=== PATIENT | female | born 1960 | race Caucasian/White ===

== ENCOUNTER → 2017-10-20 11:39 | Outpatient (CLI) | payer MEDICARE, MEDICAID, SELFPAY ==
--- NOTE | 2017-10-20 | DI.MG.S_ITS ---
BILATERAL DIGITAL SCREENING MAMMOGRAM 3D/2D WITH CAD: 10/20/2017 CLINICAL: Routine screening. Comparison is made to exams dated: 06/05/2015 mammogram, 09/12/2016 mammogram, and 02/01/2013 mammogram - [facility]. There are scattered fibroglandular elements in both breasts. Current study was also evaluated with a Computer Aided Detection (CAD) system. There are post operative findings in the left breast. No significant masses, calcifications, or other findings are seen in either breast. There has been no significant interval change. IMPRESSION: NEGATIVE There is no mammographic evidence of malignancy. A 1 year screening mammogram is recommended. This exam was interpreted at Station ID: [id number]. NOTE: For mammograms, a report in lay terms will be sent to the patient. Approximately 15% of breast malignancies will not be visualized mammographically. In the management of a palpable breast mass, a negative mammogram must not discourage biopsy of a clinically suspicious lesion. Electronically Signed By: Katelyn molina/emmie:10/20/2017 16:51:19 letter sent: Normal Exam ACR BI-RADS Category 1: Negative [id number]
== END ==
PROVIDERS: Family Provider Family Medicine; PCP Family Medicine; Visit Provider Family Medicine
DX: Z12.31 Encounter for screening mammogram for malignant neoplasm of breast (principal)
CPT/HCPCS: 77063; 77067

== ENCOUNTER 2018-04-21 08:57 | Emergency (ER) | payer MEDICARE, MEDICAID, SELFPAY ==
[2018-04-21 09:09] VITALS: BP 156/89; PULSE 86; RESP 21; TEMP 36.7; O2SAT 97; BMI 53.8
--- NOTE | 2018-04-21 09:10 | ED_ITS ---
HPI - Extremity Problem General Chief complaint: Extremity Problem,Nontraumatic Stated complaint: RIGHT KNEE PAIN Time Seen by Provider: 04/21/18 09:09 Source: patient Mode of arrival: wheelchair Limitations: no limitations History of Present Illness HPI Narrative: 49-year-old female here for evaluation of right knee pain. Patient states that has been hurting for the past week. She has been taking anti-inflammatories. No trauma. No prior injury. States that it hurts on the inside of her knee. No instability. States that it aches at night. Related Data Home Medications Medication Instructions Recorded Confirmed ibuprofen [Advil] 600 mg PO PRN #0 11/10/11 02/16/18 aspirin 81 mg tablet,delayed 81 mg PO DAILY 10/05/17 02/16/18 release aripiprazole [Abilify] 5 mg PO DAILY 04/21/18 04/21/18 clonidine HCl 0.1 mg PO BEDTIME 04/21/18 04/21/18 Previous Rx's Medication Instructions Recorded mupirocin 2 % TOPICAL BID #22 gm 08/24/17 triamcinolone acetonide 0 gm TOPICAL BID #30 gm 08/24/17 lamotrigine 200 mg tablet 400 mg PO BID #360 tab 10/20/17 venlafaxine 75 mg tablet 150 mg PO BID #360 tab 10/27/17 hydroxyzine HCl 10 mg tablet 10 mg PO BID PRN #120 tab 11/03/17 levothyroxine 75 mcg tablet 150 mcg PO Q DAY #180 tab 01/25/18 Allergies Allergy/AdvReac Type Severity Reaction Status Date / Time adhesive Allergy Severe LOCAL Verified 02/16/18 16:03 BLISTER, PLASTIC TAPE O.K., NO SILK TAPE morphine Allergy Severe STOP Verified 02/16/18 16:03 BREATHING ONIONS Allergy Unknown HIVES, N&V Uncoded 02/16/18 16:03 Review of Systems Constitutional Denies fever(s) Cardiovascular Denies chest pain and Denies dyspnea Respiratory Denies dyspnea Gastrointestinal Gastrointestinal: Denies abdominal pain Musculoskeletal Denies myalgias and Reports arthralgias (Right knee pain) Integumentary/Breasts Denies lesions and Denies rash Neurologic Comments: No numbness or tingling right knee Hematologic/Lymphatic Denies easy bleeding and Denies easy bruising [facility] Social History (Reviewed 03/29/18 @ 21:18 by LEON Coyle Smoking Status: Former smoker alcohol intake: never substance use type: does not use Exam Initial Vital Signs Initial Vital Signs: Vital Signs Temperature 98.0 F 04/21/18 09:09 Pulse Rate 86 04/21/18 09:09 Respiratory Rate 21 04/21/18 09:09 Blood Pressure 156/89 H 04/21/18 09:09 Pulse Oximetry 97 04/21/18 09:09 Const General: cooperative, healthy appearing, comfortable, well developed, well groomed and No acute distress Orientation: alert, awake and oriented x3 HENMT Head: normal to inspection and normocephalic Resp Effort & Inspection: normal respiratory effort Auscultation: clear to auscultation bilaterally Cardio Rate: regular rate Rhythm: regular rhythm Skin Lesions: no lesions Rashes: no rashes Neuro Other: Sensation intact to light touch right lower extremity Extrem Other: Patient with tenderness to palpation on the medial aspect of the right knee. Not over the medial joint line. No posterior knee tenderness. No anterior knee tenderness. Does have pain with functional testing of the MCL. Psych Appearance: grossly normal and well kempt Course Orders Ordered: Discontinued Medications Ketorolac Tromethamine (Toradol) 30 mg IM NOW ONE Stop: 04/21/18 09:32 Vital Signs - 8 hr 04/21/18 09:09 Temperature 98.0 F Pulse Rate 86 Respiratory Rate 21 Blood Pressure 156/89 H Pulse Oximetry 97 MDM - Extremity (Nontraumatic) MDM Narrative Medical decision making narrative: History of physical consistent with right MCL strain. Doubt fracture. Will hold on x-rays for now. Patient is neurovascularly intact. Was given Toradol here in the emergency department. She was given return precautions. We did discuss conservative measures such as rice and elevation. She was given an Ronaldo bandage. She is instructed to call her primary care doctor for follow-up. She expressed understanding and agreement with plan. Discharge Plan Departure Patient Disposition: Home Clinical Impression: Knee MCL sprain Instructions: How to Use an Elastic Bandage-Knee Sprain, DI for Knee Sprain, How To Perform RICE (Rest, Ice, Compress, Elevate) Activity Restrictions/Additional Instructions: You can take anti-inflammatories such as Motrin/Naprosyn. You can also add Tylenol on top of this. Use the Ronaldo bandage like we discussed. Contact your primary care doctor for a follow-up. Return to the emergency department for any new or worsening symptoms Prescriptions: No Action ibuprofen [Advil] 200 MG tablet 600 mg PO PRN Qty: 0 RF: 0 triamcinolone acetonide 0.1 % ointment Topical BID Qty: 30 RF: 3 mupirocin 2 % ointment 2 % Topical BID Qty: 22 RF: 0 lamotrigine [Lamictal] 200 mg tablet 400 mg PO BID Qty: 360 RF: 5 venlafaxine 75 mg tablet 150 mg PO BID Qty: 360 RF: 5 hydroxyzine HCl 10 mg tablet 10 mg PO BID PRN (Reason: anxiety) Qty: 120 RF: 1 levothyroxine [Synthroid] 75 mcg tablet 150 mcg PO Q DAY Qty: 180 RF: 0 aspirin [Adult Low Dose Aspirin] 81 mg tablet,delayed release (DR/EC) 81 mg PO DAILY RF: 0 clonidine HCl 0.1 mg tablet 0.1 mg PO BEDTIME RF: 0 aripiprazole [Abilify] 5 mg tablet 5 mg PO DAILY RF: 0
[2018-04-21] MEDS: KETOROLAC 60 MG/2 ML VIAL 30 MG IM (10:22)
[2018-04-21 11:06] VITALS: BP 127/84; PULSE 80; RESP 18; O2SAT 96
== END 2018-04-21 11:02 | disposition home or self-care (01) ==
PROVIDERS: Emergency Provider Emergency Medicine; PCP Family Medicine
DX: S83.411A Sprain of medial collateral ligament of right knee, initial encounter (principal)
CPT/HCPCS: 96372; 99282; 99283; J1885

== ENCOUNTER 2018-04-23 09:11 | Emergency (ER) | payer MEDICARE, MEDICAID, SELFPAY ==
[2018-04-23 09:18] VITALS: BP 150/90; PULSE 84; RESP 18; TEMP 36.9; O2SAT 96; BMI 53.8
--- NOTE | 2018-04-23 09:36 | ED_ITS ---
HPI - Nausea/Vomiting/Diarrhea General Chief complaint: Nausea/Vomiting/Diarrhea Stated complaint: rt knee pain Time Seen by Provider: 04/23/18 09:35 Source: patient Mode of arrival: ambulatory Limitations: no limitations History of Present Illness HPI Narrative: patient is a 57-year-old female who I evaluated in the emergency department here 2 days ago for right knee pain. Was diagnosed with a MCL strain. Was sent home with instructions to take Tylenol and Motrin. She states that after she returned home from that visit she started to have nausea vomiting. She states that it is continued since then. She has not taken any Tylenol Motrin the past 24 hr because of the vomiting. She states she feels like the vomiting is because the pain in her right knee has worsened. She feels like it is the same pain as she had 2 days ago however is now migrated slightly up the inside of her thigh and has become more intense. No fevers. She is taking her other medications but has thrown them up has not tried anything at home for the pain or for the nausea and vomiting. Related Data Home Medications Medication Instructions Recorded Confirmed ibuprofen [Advil] 200 - 600 mg PO PRN PRN #0 11/10/11 04/23/18 aspirin 81 mg tablet,delayed 81 mg PO DAILY 10/05/17 04/23/18 release aripiprazole [Abilify] 5 mg PO DAILY 04/21/18 04/23/18 clonidine HCl 0.1 mg PO BEDTIME 04/21/18 04/23/18 lamotrigine [Lamictal] 200 mg PO BID 04/23/18 04/23/18 Previous Rx's Medication Instructions Recorded venlafaxine 75 mg tablet 150 mg PO BID #360 tab 10/27/17 hydroxyzine HCl 10 mg tablet 10 mg PO BID PRN #120 tab 11/03/17 levothyroxine 75 mcg tablet 150 mcg PO Q DAY #180 tab 01/25/18 hydrocodone-acetaminophen [[place]] 1 tab PO Q4-6H PRN #10 tab 04/23/18 ondansetron 4 mg PO Q6-8H PRN #10 tab 04/23/18 Allergies Allergy/AdvReac Type Severity Reaction Status Date / Time adhesive Allergy Severe LOCAL Verified 04/23/18 09:25 BLISTER, PLASTIC TAPE O.K., NO SILK TAPE morphine Allergy Severe STOP Verified 04/23/18 09:25 BREATHING ONIONS Allergy Unknown HIVES, N&V Uncoded 02/16/18 16:03 Review of Systems Constitutional Denies fever(s) Cardiovascular Denies chest pain and Denies dyspnea Respiratory Denies dyspnea Gastrointestinal Gastrointestinal: Denies abdominal pain, Denies change in bowel habits and Reports vomiting Musculoskeletal Denies myalgias, Denies deformity, Reports arthralgias ( Right knee pain), Denies joint swelling, Reports limited range of motion ( right knee secondary to pain), Denies numbness and Denies tingling Integumentary/Breasts Denies lesions and Denies rash Neurologic Denies behavioral changes, Denies numbness and Denies tingling Psychiatric Denies behavioral changes Hematologic/Lymphatic Denies easy bleeding PFSH Social History Smoking Status: Former smoker alcohol intake: never substance use type: does not use Exam Initial Vital Signs Initial Vital Signs: Vital Signs Temperature 98.4 F 04/23/18 09:18 Pulse Rate 84 04/23/18 09:18 Respiratory Rate 18 04/23/18 09:18 Blood Pressure 150/90 H 04/23/18 09:18 Pulse Oximetry 96 04/23/18 09:18 Const General: cooperative, well developed, well groomed and No acute distress Orientation: alert, awake and oriented x3 HENMT Head: normal to inspection and normocephalic Resp Effort & Inspection: normal respiratory effort Auscultation: clear to auscultation bilaterally Cardio Rate: regular rate Rhythm: regular rhythm Pulses: dorsalis pedis present on the right GI Inspection: non-distended Palpation: soft, No firm, No guarding, No rigid and No tender Skin Lesions: no lesions Rashes: no rashes Neuro General: alert, awake and oriented x3 Other: sensation intact to light touch right lower extremity Extrem General: normal to inspection and capillary refill normal Other: no gross deformities. Is tender to palpation along the medial aspect of the right knee. Her exam today is very similar to the exam 2 days ago. Psych Appearance: grossly normal and well kempt Course Orders Ordered: ED Orders 04/23/18 09:37 EKG-12 Lead Stat 04/23/18 09:40 XR knee RT 3V Stat 04/23/18 09:55 C-Reactive Protein Quant Stat Complete Blood Count AUTO DIFF Stat Comprehensive Metabolic Panel Stat Erythrocyte Sedimentation Rate Stat Lipase Stat Partial Thromboplastin Time Stat Prothrombin Time INR Stat 04/23/18 10:04 Procalcitonin Stat Discontinued Medications Hydromorphone HCl (Dilaudid) 0.5 mg IV NOW ONE Stop: 04/23/18 10:01 Last Admin: 04/23/18 10:17 Dose: 0.5 mg Ondansetron HCl (Zofran) 4 mg IV NOW ONE Stop: 04/23/18 09:38 Last Admin: 04/23/18 09:58 Dose: 4 mg Vital Signs - 8 hr 04/23/18 09:18 Temperature 98.4 F Pulse Rate 84 Respiratory Rate 18 Blood Pressure 150/90 H Pulse Oximetry 96 MDM - Nausea/Vomiting/Diarrhea Lab Data Attestation: I reviewed the patient's lab results. Result diagrams: 04/23/18 09:55 04/23/18 09:55 Lab Results 04/23/18 04/23/18 04/23/18 Range/Units 09:55 09:55 09:55 WBC 8.3 (4.5-11.0) X10^3/uL RBC 4.67 (4.0-5.2) X10^6/uL Hgb 14.4 (12.0-16.0) g/dL Hct 43.1 (36-46) % MCV 92.5 (80-100) fL MCH 30.9 (26-34) PG MCHC 33.4 (30-36) % RDW 14.1 (11.6-14.8) % Plt Count 275 (150-400) X10^3/uL Neut % (Auto) 84.6 H (50-75) % Lymph % (Auto) 8.5 L (25-40) % [place] % (Auto) 5.4 (3-14) % Eos % (Auto) 1.1 L (2-4) % Baso % (Auto) 0.4 (0-2) % Neut # (Auto) 7100 H (9105-8115) /uL ESR 3 (0-20) MM/HR PT 13.2 H (10.1-12.7) SECONDS INR 1.2 (0.9-1.3) APTT 29 (26.4-36.2) SECONDS Sodium 141 (137-145) mmol/L Potassium 3.7 (3.4-5.1) mmol/L Chloride 103 (98-107) mmol/L Carbon Dioxide 26 (22-32) mmol/L BUN 14 (7-17) mg/dL Creatinine 0.60 (0.52-1.04) mg/dL Estimated GFR > 60.0 (>60) mL/min BUN/Creatinine Ratio 23.3 H (6-22) Glucose 125 H (70-100) mg/dL Calcium 9.3 (8.4-10.2) mg/dL Total Bilirubin 0.7 (0.2-1.3) mg/dL AST 1326 H (14-36) IU/L ALT 1653 H (9-52) IU/L Alkaline Phosphatase 119 (38-126) U/L C-Reactive Protein 1.3 H (<1.0) mg/dL Total Protein 6.4 (6.3-8.2) g/dL Albumin 4.3 (3.5-5.0) g/dL Globulin 2.1 (1.7-4.1) g/dL Albumin/Globulin Ratio 2.0 (1.0-2.8) Lipase 42 (23-300) U/L Procalcitonin (<0.5) ng/mL 04/23/18 Range/Units 10:04 WBC (4.5-11.0) X10^3/uL RBC (4.0-5.2) X10^6/uL Hgb (12.0-16.0) g/dL Hct (36-46) % MCV (80-100) fL MCH (26-34) PG MCHC (30-36) % RDW (11.6-14.8) % Plt Count (150-400) X10^3/uL Neut % (Auto) (50-75) % Lymph % (Auto) (25-40) % [place] % (Auto) (3-14) % Eos % (Auto) (2-4) % Baso % (Auto) (0-2) % Neut # (Auto) (0971-6467) /uL ESR (0-20) MM/HR PT (10.1-12.7) SECONDS INR (0.9-1.3) APTT (26.4-36.2) SECONDS Sodium (137-145) mmol/L Potassium (3.4-5.1) mmol/L Chloride (98-107) mmol/L Carbon Dioxide (22-32) mmol/L BUN (7-17) mg/dL Creatinine (0.52-1.04) mg/dL Estimated GFR (>60) mL/min BUN/Creatinine Ratio (6-22) Glucose (70-100) mg/dL Calcium (8.4-10.2) mg/dL Total Bilirubin (0.2-1.3) mg/dL AST (14-36) IU/L ALT (9-52) IU/L Alkaline Phosphatase (38-126) U/L C-Reactive Protein (<1.0) mg/dL Total Protein (6.3-8.2) g/dL Albumin (3.5-5.0) g/dL Globulin (1.7-4.1) g/dL Albumin/Globulin Ratio (1.0-2.8) Lipase (23-300) U/L Procalcitonin 21.50 H (<0.5) ng/mL Point of Care Testing Glucose POC 109 Imaging Data x-ray knee: Radiologist's impression: [address] [address] XRay Report Signed Patient: Verena Turcios [facility]#: [id number] : 1960Acct:[id number] Age/Sex: 57 / FDate of Service: 04/23/18 Loc: ED Accession Number: [id number] Procedure: XR knee RT 3V Ordering Provider: Allen Cohi D.O. PROCEDURE: XR KNEE RT 3V INDICATIONS: medial right knee pain TECHNIQUE: 3 views of the knee were acquired. COMPARISON: [facility], , KNEE 3V LEFT, 12/29/2011, 12:17. FINDINGS: Bones: There is moderate medial femorotibial joint space narrowing seen, with associated remodeling changes including subchondral sclerosis and osteophyte formation along the jointline. No fractures or dislocations. No suspicious bony lesions. Soft tissues: No joint effusion. No suspicious soft tissue calcifications. IMPRESSION: No acute bony injury is seen. 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 Dictated by: Anny MarinD. on 04/23/2018 at 9:32 Approved by: Davie Lynn M.D. on 04/23/2018 at 9:34 ECG Data Attestation: I personally reviewed and interpreted this ECG as follows: Prior ECG tracings: not available for review Interpretation: Sinus rhythm ventricular rate is 77 normal axis normal intervals normal QRS normal QTC nonspecific ST T wave changes MDM Narrative Medical decision making narrative: patient with improvement of symptoms after medications here in the emergency department. Does have elevated liver function test. Patient states she has never been told this in the past. She has had a gallbladder removal in the past. Doubt infection in the right knee. Doubt intra-abdominal surgical pathology as a cause of her nausea and vomiting. Will add additional pain medication to her Tylenol Motrin that she has at home. Also sent home with Connie. She has a follow-up with her primary doctor on the of this month. She was given return precautions. She expressed understanding and agreement with plan. Discharge Plan Departure Patient Disposition: Home Clinical Impression: Nausea & vomiting, Strain of right knee, Elevated liver function tests Instructions: DI for Vomiting -- Adult Activity Restrictions/Additional Instructions: recommend you continue to take the ibuprofen as directed. Keep all of your scheduled medical appointments. Return to the emergency department for new or worsening symptoms. Prescriptions: New hydrocodone-acetaminophen [[place]] 5-325 mg tablet 1 tab PO Q4-6H PRN (Reason: pain) Qty: 10 RF: 0 ondansetron 4 mg tablet,disintegrating 4 mg PO Q6-8H PRN (Reason: nausea and vomiting) Qty: 10 RF: 0 No Action ibuprofen [Advil] 200 MG tablet 200 - 600 mg PO PRN PRN (Reason: pain) Qty: 0 RF: 0 venlafaxine 75 mg tablet 150 mg PO BID Qty: 360 RF: 5 hydroxyzine HCl 10 mg tablet 10 mg PO BID PRN (Reason: anxiety) Qty: 120 RF: 1 levothyroxine [Synthroid] 75 mcg tablet 150 mcg PO Q DAY Qty: 180 RF: 0 aspirin [Adult Low Dose Aspirin] 81 mg tablet,delayed release (DR/EC) 81 mg PO DAILY RF: 0 clonidine HCl 0.1 mg tablet 0.1 mg PO BEDTIME RF: 0 aripiprazole [Abilify] 5 mg tablet 5 mg PO DAILY RF: 0 lamotrigine [Lamictal] 200 mg tablet 200 mg PO BID RF: 0
--- NOTE | 2018-04-23 09:40 | DI.RAD.S_ITS ---
PROCEDURE: XR KNEE RT 3V INDICATIONS: medial right knee pain TECHNIQUE: 3 views of the knee were acquired. COMPARISON: [facility], , KNEE 3V LEFT, 12/29/2011, 12:17. FINDINGS: Bones: There is moderate medial femorotibial joint space narrowing seen, with associated remodeling changes including subchondral sclerosis and osteophyte formation along the jointline. No fractures or dislocations. No suspicious bony lesions. Soft tissues: No joint effusion. No suspicious soft tissue calcifications. IMPRESSION: No acute bony injury is seen. 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 Dictated by: Davie Lynn M.D. on 04/23/2018 at 9:32 Approved by: Davie Lynn M.D. on 04/23/2018 at 9:34
[2018-04-23] MEDS: ONDANSETRON 4 MG/2 ML INJ IV (09:58)
[2018-04-23 10:04] LABS: Add Manual Diff / Slide Review NO; Basophils Percent Auto 0.4 % (0-2); Eosinophils Percent Auto 1.1 % (2-4); Hematocrit 43.1 % (36-46); Hemoglobin 14.4 g/dL (12.0-16.0); Lymphocytes Percent Auto 8.5 % (25-40); Mean Corpuscular HGB Conc 33.4 % (30-36); Mean Corpuscular Hemoglobin 30.9 PG (26-34); Mean Corpuscular Volume 92.5 fL (80-100); Monocytes Percent Auto 5.4 % (3-14); Neutrophils Absolute Auto 7100 /uL (3000-5900); Neutrophils Percent Auto 84.6 % (50-75); Platelet Count 275 X10^3/uL (150-400); Red Blood Cell Count 4.67 X10^6/uL (4.0-5.2); Red Cell Distribution Width 14.1 % (11.6-14.8); White Blood Cell Count 8.3 X10^3/uL (4.5-11.0)
[2018-04-23] MEDS: HYDROMORPHONE 0.5 MG INJ IV (10:17)
[2018-04-23 10:18] LABS: INR 1.2 (0.9-1.3); Prothrombin Time 13.2 SECONDS (10.1-12.7)
[2018-04-23 10:20] LABS: Albumin 4.3 g/dL (3.5-5.0); Alkaline Phosphatase 119 U/L (38-126); BUN Creatinine Ratio 23.3 (6-22); Bilirubin Total 0.7 mg/dL (0.2-1.3); Blood Urea Nitrogen 14 mg/dL (7-17); C-Reactive Protein Quant 1.3 mg/dL (<1.0); Calcium 9.3 mg/dL (8.4-10.2); Carbon Dioxide 26 mmol/L (22-32); Chloride 103 mmol/L (98-107); Estimated Glomerular Filt Rate > 60.0 mL/min (>60); Globulin 2.1 g/dL (1.7-4.1); Glucose 125 mg/dL (70-100); HEMOLYSIS < 15 (0-50); Lipase 42 U/L (23-300); Potassium 3.7 mmol/L (3.4-5.1); Sodium 141 mmol/L (137-145); Total Protein 6.4 g/dL (6.3-8.2)
[2018-04-23 10:21] LABS: PTT Partial Thromboplastin Tim 29 SECONDS (26.4-36.2)
[2018-04-23 10:26] LABS: Alanine Aminotransferase 1653 IU/L (9-52); Aspartate Aminotransferase 1326 IU/L (14-36)
[2018-04-23 10:33] LABS: Erythrocyte Sedimentation Rate 3 MM/HR (0-20)
--- NOTE | 2018-04-23 11:11 | PC.NURSE ---
obtained patient care. at bedside with provider discussing labs and imaging. Patient educated on safety of getting around with knee pain. Discussed medications patient would be discharged with. IV removed. Patient getting dressed
[2018-04-23 11:30] VITALS: BP 136/72; PULSE 78; RESP 16; O2SAT 98
== END 2018-04-23 11:31 | disposition home or self-care (01) ==
PROVIDERS: Emergency Provider Emergency Medicine; PCP Family Medicine
DX: S86.911A Strain of unspecified muscle(s) and tendon(s) at lower leg level, right leg, initial encounter (principal); R11.2 Nausea with vomiting, unspecified; R94.5 Abnormal results of liver function studies
CPT/HCPCS: 36591; 73562; 80053; 82962; 83690; 84145; 85025; 85610; 85651; 85730; 86140; 93005; 96374; 96375; 99282; 99285; J1170; J2405

== ENCOUNTER → 2018-04-27 11:30 | Outpatient (CLI) | payer MEDICARE, MEDICAID, SELFPAY ==
[2018-04-27 12:53] LABS: Albumin 4.4 g/dL (3.5-5.0); Albumin Globulin Ratio 2.3 (1.0-2.8); Alkaline Phosphatase 157 U/L (38-126); Aspartate Aminotransferase 344 IU/L (14-36); Bilirubin Total 0.4 mg/dL (0.2-1.3); Bilirubin Unconjugated 0.1 mg/dL (0.0-1.1); Globulin 1.9 g/dL (1.7-4.1); HEMOLYSIS < 15 (0-50); Total Protein 6.3 g/dL (6.3-8.2)
[2018-04-27 13:01] LABS: Alanine Aminotransferase 1051 IU/L (9-52)
== END ==
PROVIDERS: PCP Family Medicine; Visit Provider Family Medicine
DX: R94.5 Abnormal results of liver function studies (principal)
CPT/HCPCS: 36415; 80076

== ENCOUNTER → 2018-04-28 08:05 | Outpatient (CLI) | payer MEDICARE, MEDICAID, SELFPAY ==
[2018-04-28 10:08] LABS: Erythrocyte Sedimentation Rate 6 MM/HR (0-20)
[2018-04-28 10:23] LABS: C-Reactive Protein Quant 0.5 mg/dL (<1.0)
[2018-04-29 12:52] LABS: Ceruloplasmin 29 mg/dL (18-53)
[2018-04-29 13:01] LABS: Alpha 1 Anti Trypsin 216 mg/dL (83-199)
[2018-04-30 09:55] LABS: Hepatitis A Antibody IgM NONREACTIVE (NONREACTIVE); Hepatitis B Core Antibody IgM NONREACTIVE (NONREACTIVE); Hepatitis B Surface Antigen NONREACTIVE (NONREACTIVE); Hepatitis C Antibody NONREACTIVE
[2018-05-01 16:30] LABS: ANA Screen NEGATIVE (Negative); DNA Antibody Crithidia IFA NEGATIVE (Negative); Rheumatoid Factor <14 IU/mL; Sjogren Antiboday SS-A <1.0 NEG AI (<1.0 NEGATIVE); Sjogren Antiboday SS-B <1.0 NEG AI (<1.0 NEGATIVE); Sm Antibody <1.0 NEG AI (<1.0 NEGATIVE); Sm/RNP Antibody <1.0 NEG AI (<1.0 NEGATIVE)
== END ==
PROVIDERS: PCP Family Medicine; Visit Provider Family Medicine
DX: R94.5 Abnormal results of liver function studies (principal)
CPT/HCPCS: 36415; 80074; 82103; 82390; 82728; 85651; 86038; 86140; 86430

== ENCOUNTER → 2018-05-03 13:38 | Outpatient (CLI) | payer MEDICARE, MEDICAID, SELFPAY ==
--- NOTE | 2018-05-03 13:40 | DI.US.S_ITS ---
PROCEDURE: US ABDOMEN COMPLETE INDICATIONS: elevated LFT's TECHNIQUE: Real-time scanning was performed of the abdominal and retroperitoneal organs, with image documentation. COMPARISON: None. FINDINGS: Liver: The liver demonstrates normal size. The liver demonstrates generalized increased echogenicity. This decreases ultrasound sensitivity for detection of hepatic masses. Gallbladder: Removed. Biliary ducts: Intrahepatic bile ducts are non-dilated. Extrahepatic bile duct caliber measures 6 mm. Normal is 6-7 mm or less in diameter, or 10 mm or less post-cholecystectomy. Pancreas: Not seen, obscured by overlying bowel gas. Spleen: Spleen is normal in size and homogeneous in echotexture. Kidneys: Kidneys are normal in size and echotexture. Right kidney measures 10.9 cm long; left kidney measures 12.4 cm long. No hydronephrosis or nephrolithiasis. No solid masses. The renal cortex measures within normal limits for thickness. Aorta: Visualized aorta is normal in caliber at less than 3 cm. Iliacs: Not seen, obscured by overlying bowel gas. IVC: Intrahepatic inferior vena cava is patent. Miscellaneous: No free abdominal fluid. IMPRESSION: The liver demonstrates increased echogenicity. This finding is nonspecific, yet it is most commonly attributed to fatty infiltration. Status post cholecystectomy. No biliary dilatation. Dictated by: Davie Lynn M.D. on 05/03/2018 at 14:49 Approved by: Davie Lynn M.D. on 05/03/2018 at 14:50
== END ==
PROVIDERS: PCP Family Medicine; Visit Provider Family Medicine
DX: R94.5 Abnormal results of liver function studies (principal); Z90.49 Acquired absence of other specified parts of digestive tract
CPT/HCPCS: 76700

== ENCOUNTER 2018-07-01 10:30 | Outpatient (RCR) | payer MEDICARE, MEDICAID, SELFPAY ==
--- NOTE | 2018-05-12 09:57 | PT.OIE ---
Current Diagnoses Pain in right knee (05/11/18) Past Medical History (Last Reviewed 05/04/18 @ 10:28 by Anuja Damon LPN) Bipolar disorder (Chronic) Central sleep apnea (Chronic) Hayfever (Chronic) Hypothyroidism (Chronic) Insomnia, persistent (Chronic) Migraines (Chronic) Sleep apnea (Chronic) Past Surgical History (Last Reviewed 05/04/18 @ 10:28 by Anuja Damon LPN) History of abdominoplasty (Resolved 10/2015) History of gastric bypass (Resolved 2002) Status post coronary artery bypass graft (Resolved) Status post laparoscopic cholecystectomy (Resolved) Status post ovarian cystectomy (Resolved 1991) Provider Visit Care Team Role Provider Type Jose Justin MD Attending Provider Physician Primary Care Provider Specialty: [facility] Address: [address] [place] [address] Email: [email or web address] Physical Therapy Initial Evaluation PT-OP-A Visit Information Start: 05/12/18 09:32 Freq: Status: Active Protocol: Document 05/11/18 13:45 [facility] (Rec: 05/12/18 09:54 [facility] [email or web address]) Out-Patient Physical Therapy Visit Information Visit Information Visit Type Initial Evaluation Visit Start Time 13:45 Visit Stop Time 14:30 Total Visit Minutes 45 Visit Number 1 Number of PUBLIC WEIGHER Visits 0 Evaluation Information Evaluation Date 05/11/18 PT-OP-B Current Condition Start: 05/12/18 09:32 Freq: Status: Active Protocol: Document 05/11/18 13:45 [facility] (Rec: 05/12/18 09:54 [facility] [email or web address]) Current Condition History of Current Condition Onset Date 3 months ago Current Complaints c/o right sided medial knee pain History of Current Condition 57 year old female on disability with c/o right sided medial knee pain. Symptoms begain 3 months ago with an insidious onset. Verena notes she just began experiencing medial knee pain on the right which is worsening. 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 She received a cortisone injection 2 weeks ago but this did not change things. Sx are worse with walking and twisting activities and after she has been sitting for a period of time. She is not a surgical candidate at this time due to elevated liver enzymes. Treatment Goals Patient/Caregiver Goals to decrease pain and enable her to continue with her walking routine of 3 mile walks Prior Functional Status Baseline Function- ADL's Independent Baseline Function- Mobility Independent Baseline Function- Recreation/Hobbies walking 3 miles a few days per week Current Functional Impairments (Reported) Functional Limitations- ADL's interuptted sleep due to apin, unable to lay on her sides Functional Limitations- Mobility/Gait limited due to pain PT-OP-C Subjective Start: 05/12/18 09:32 Freq: Status: Active Protocol: Document 05/11/18 13:45 [facility] (Rec: 05/12/18 09:54 [facility] [email or web address]) OP-PT Pain Assessment Pain Assessment Grid Paper Pain Assessment Grid Completed Yes Location Right Medial Knee Intensity 4 Scale Used Numeric (1 - 10) Pain Aggravating Factors Position Changing Position ADL's Activity Exercise Standing Walking Stair Climbing Bending Lifting PT-OP-F Manual Assessment Start: 05/12/18 09:32 Freq: Status: Active Protocol: Document 05/11/18 13:45 [facility] (Rec: 05/12/18 09:54 [facility] [email or web address]) Manual Assessments Soft Tissue Assessment Soft Tissue Mobility Assessment swelling noted at the medial joint line and medial to the tibial tuberosity Joint Mobility Assessment Joint Mobility Assessment hypomobility of the patella B due to knee locked in hyperextension at rest PT-OP-G Mobility & Gait Start: 05/12/18 09:32 Freq: Status: Active Protocol: Document 05/11/18 13:45 [facility] (Rec: 05/12/18 09:54 [facility] [email or web address]) OP Mobility Evaluation Transfers Sit to Stand Ind but painful PT-OP-K Range of Motion Start: 05/12/18 09:32 Freq: Status: Active Protocol: Document 05/11/18 13:45 [facility] (Rec: 05/12/18 09:54 [facility] [email or web address]) Knee Goniometric Range of Motion Knee Measured in Degrees Left Knee ROM WFL Yes Flexion Active (degrees) 120 Hyper-Extension Active 5 Right Knee ROM WFL No Patient Position Supine Flexion Active (degrees) 110 Hyper-Extension Active 5 PT-OP-M Strength Start: 05/12/18 09:32 Freq: Status: Active Protocol: Document 05/11/18 13:45 [facility] (Rec: 05/12/18 09:54 [facility] [email or web address]) Knee Strength Knee Manual Muscle Testing Left Flexion (S2) 4 Good Extension (L3) 4 Good Right Flexion (S2) 4 Good Extension (L3) 3 Fair PT-OP-Q Treatments Start: 05/12/18 09:32 Freq: Status: Active Protocol: Document 05/12/18 09:55 [facility] (Rec: 05/12/18 09:57 [facility] [email or web address]) Cardio Equipment Recumbent Bicycle Duration (Minutes) 5 Therapeutic Exercises Supine Exercises 2 Supine Exercise Name quad sets Side right Reps/Minutes x 10 1 Supine Exercise Name supine heel slides and ball rolls Side bilateral Reps/Minutes 20x Comments pt has a ball at home PT-OP-R Modalities Start: 05/12/18 09:32 Freq: Status: Active Protocol: Document 05/12/18 09:55 [facility] (Rec: 05/12/18 09:57 [facility] [email or web address]) Hot Pack/Cold Pack Treatment Ice Massage Location right medial knee Patient Position Supine Treatment Duration (minutes) 5 Patient Tolerance Good Ultrasound Therapy Treatment Right Medial Knee Patient Position Supine Coupling Medium Ultrasound Gel Applicator Size (cm2) 5 Mode Setting Continuous Duty Cycle 100% Intensity Setting (w/cm2) 1.5 PT-OP-T Assessment and Plan Start: 05/12/18 09:32 Freq: Status: Active Protocol: Document 05/11/18 13:45 [facility] (Rec: 05/12/18 09:54 [facility] [email or web address]) Physical Therapy Assessment Rehab Potential Rehabilitation Potential Good Evaluation Complexity Number of Personal Factors/Comorbidities 0 Number of Body Systems Impaired 1-2 Clinical Presentation at Evaluation Stable Impairments Impairments Activity Tolerance Gait Pain ROM Soft Tissue Mobility Strength Goals Four Impairment swelling of the medial joint line and medial to the tibial tuberosity Short Term Goal (STG) decreased visable swelling and edema at the medial joint line with ther ex, modalities, and manual therapy techniques Three Impairment decreased strength of the right knee Assisted Goal (LTG) Improve strength and tolerance of ther ex for improved support of the right knee. Verena is able to perform a functional squat in good form LTG Duration 8 weeks Two Impairment pain rated 4/10 medial right knee Short Term Goal (STG) Verena has decreased c/o right knee pain at rest and is able to sit-stand with decreased pain asd well as sleep through the night One Impairment decreased knee ROM on the right Short Term Goal (STG) Improve full knee flexion to 120 deg to match the left LE STG Duration 5 weeks Assessment Summary Assessment Verena is a 57 year old female weighing 320# who is experiencing medial knee pain. She is swollen at the medial joint line and distally and has symptoms that sound like her medial meniscus in nature. She tends to hold her knees in a locked hyperextension position so it was difficult to move the patella today. She did not gain any relief with a cortisone injection into the joint. At this point she has elevated liver enzymes so she is not a candidate for knee surgery. We started with ultrasound and ROM exercises today as well as the bike to begin working on ROM. Ice was used at the end of treatment. Treatment will focus on strengthening the stabilizing musculatre around the knee as well as techniques to decrease swelling. Physical Therapy Plan Frequency and Duration Frequency of Treatment 2x/Week Duration of Treatment 8 weeks Plan of Care Start Date 05/11/18 Plan of Care End Date 07/06/18 Therapeutic Interventions Therapeutic Interventions Home Exercise Program Manual Therapy Patient/Caregiver Education Soft Tissue Mobilization Taping Therapeutic Exercises Modalities Cold Pack/Ice Massage Electric Stimulation Ultrasound Next Visit Focus/Plan Next Note Type Treatment Note Next Visit Plan trial of kinesiotape over the medial joint line to help reduce edema and pain
--- NOTE | 2018-05-18 17:39 | PT.OTN ---
Current Diagnoses Pain in right knee (05/18/18) Physical Therapy Treatment Note PT-OP-A Visit Information Start: 05/12/18 09:32 Freq: Status: Active Protocol: Document 05/18/18 17:34 [facility] (Rec: 05/18/18 17:38 [facility] [email or web address]) Out-Patient Physical Therapy Visit Information Visit Information Visit Type Treatment Note Visit Start Time 13:45 Visit Stop Time 14:45 Total Visit Minutes 60 Visit Number 2 PT-OP-B Current Condition Start: 05/12/18 09:32 Freq: Status: Active Protocol: Document 05/11/18 13:45 [facility] (Rec: 05/12/18 09:54 [facility] [email or web address]) Current Condition History of Current Condition Onset Date 3 months ago Current Complaints c/o right sided medial knee pain History of Current Condition 57 year old female on disability with c/o right sided medial knee pain. Symptoms begain 3 months ago with an insidious onset. Verena notes she just began experiencing medial knee pain on the right which is worsening. 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 She received a cortisone injection 2 weeks ago but this did not change things. Sx are worse with walking and twisting activities and after she has been sitting for a period of time. She is not a surgical candidate at this time due to elevated liver enzymes. Treatment Goals Patient/Caregiver Goals to decrease pain and enable her to continue with her walking routine of 3 mile walks Prior Functional Status Baseline Function- ADL's Independent Baseline Function- Mobility Independent Baseline Function- Recreation/Hobbies walking 3 miles a few days per week Current Functional Impairments (Reported) Functional Limitations- ADL's interuptted sleep due to apin, unable to lay on her sides Functional Limitations- Mobility/Gait limited due to pain PT-OP-C Subjective Start: 05/12/18 09:32 Freq: Status: Active Protocol: Document 05/18/18 17:34 [facility] (Rec: 05/18/18 17:38 [facility] [email or web address]) OP-PT Subjective Patient Comments Patient Comments Twisting activities give me the most pain PT-OP-F Manual Assessment Start: 05/12/18 09:32 Freq: Status: Active Protocol: Document 05/11/18 13:45 [facility] (Rec: 05/12/18 09:54 [facility] [email or web address]) Manual Assessments Soft Tissue Assessment Soft Tissue Mobility Assessment swelling noted at the medial joint line and medial to the tibial tuberosity Joint Mobility Assessment Joint Mobility Assessment hypomobility of the patella B due to knee locked in hyperextension at rest PT-OP-G Mobility & Gait Start: 05/12/18 09:32 Freq: Status: Active Protocol: Document 05/11/18 13:45 [facility] (Rec: 05/12/18 09:54 [facility] [email or web address]) OP Mobility Evaluation Transfers Sit to Stand Ind but painful PT-OP-K Range of Motion Start: 05/12/18 09:32 Freq: Status: Active Protocol: Document 05/11/18 13:45 [facility] (Rec: 05/12/18 09:54 [facility] [email or web address]) Knee Goniometric Range of Motion Knee Measured in Degrees Left Knee ROM WFL Yes Flexion Active (degrees) 120 Hyper-Extension Active 5 Right Knee ROM WFL No Patient Position Supine Flexion Active (degrees) 110 Hyper-Extension Active 5 PT-OP-M Strength Start: 05/12/18 09:32 Freq: Status: Active Protocol: Document 05/11/18 13:45 [facility] (Rec: 05/12/18 09:54 [facility] [email or web address]) Knee Strength Knee Manual Muscle Testing Left Flexion (S2) 4 Good Extension (L3) 4 Good Right Flexion (S2) 4 Good Extension (L3) 3 Fair PT-OP-Q Treatments Start: 05/12/18 09:32 Freq: Status: Active Protocol: Document 05/18/18 17:34 [facility] (Rec: 05/18/18 17:38 [facility] [email or web address]) Cardio Equipment Elliptical Duration (Minutes) 5 Therapeutic Exercises Supine Exercises 3 Supine Exercise Name TKE Reps/Minutes 2 x 10 2 Supine Exercise Name quad sets Side right Reps/Minutes x 10 1 Supine Exercise Name supine heel slides and ball rolls Side bilateral Reps/Minutes 20x Comments pt has a ball at home Prone Exercises 1 Prone Exercise Name prone hamstring curls Comments no resistance Sidelying Exercises 1 Sidelying Exercise Name clam shells Reps/Minutes 3 x 10 PT-OP-R Modalities Start: 05/12/18 09:32 Freq: Status: Active Protocol: Document 05/18/18 17:34 [facility] (Rec: 05/18/18 17:38 [facility] [email or web address]) Electric Stimulation Electric Stimulation Interferential Current (IFC) Body Location right medial knee Duration (Minutes) 15 Combined With Heat/Cold Cold Pack Ultrasound Therapy Treatment Right Medial Knee Patient Position Supine Coupling Medium Ultrasound Gel Applicator Size (cm2) 5 Mode Setting Continuous Duty Cycle 100% Intensity Setting (w/cm2) 1.5 PT-OP-T Assessment and Plan Start: 05/12/18 09:32 Freq: Status: Active Protocol: Document 05/18/18 17:34 [facility] (Rec: 05/18/18 17:38 [facility] [email or web address]) Physical Therapy Assessment Assessment Summary Assessment improved knee flexion today and decreased swelling. Pain was right over the medial joint line today. Talked about taking small steps instead of twisting activities Physical Therapy Plan Frequency and Duration Frequency of Treatment 2x/Week Duration of Treatment 8 weeks Plan of Care Start Date 05/11/18 Plan of Care End Date 07/06/18 Therapeutic Interventions Therapeutic Interventions Home Exercise Program Manual Therapy Patient/Caregiver Education Soft Tissue Mobilization Taping Therapeutic Exercises Modalities Cold Pack/Ice Massage Electric Stimulation Ultrasound Next Visit Focus/Plan Next Note Type Treatment Note Next Visit Plan continue with knee ROM and strengthening
--- NOTE | 2018-05-20 16:11 | PT.OTN ---
Current Diagnoses Pain in right knee (05/20/18) Physical Therapy Treatment Note PT-OP-A Visit Information Start: 05/12/18 09:32 Freq: Status: Active Protocol: Document 05/20/18 16:03 [facility] (Rec: 05/20/18 16:11 [facility] [email or web address]) Out-Patient Physical Therapy Visit Information Visit Information Visit Type Treatment Note Visit Start Time 15:15 Visit Stop Time 16:00 Total Visit Minutes 45 Visit Number 3 Evaluation Information Evaluation Date 05/11/18 PT-OP-B Current Condition Start: 05/12/18 09:32 Freq: Status: Active Protocol: Document 05/11/18 13:45 [facility] (Rec: 05/12/18 09:54 [facility] [email or web address]) Current Condition History of Current Condition Onset Date 3 months ago Current Complaints c/o right sided medial knee pain History of Current Condition 57 year old female on disability with c/o right sided medial knee pain. Symptoms begain 3 months ago with an insidious onset. Verena notes she just began experiencing medial knee pain on the right which is worsening. 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 She received a cortisone injection 2 weeks ago but this did not change things. Sx are worse with walking and twisting activities and after she has been sitting for a period of time. She is not a surgical candidate at this time due to elevated liver enzymes. Treatment Goals Patient/Caregiver Goals to decrease pain and enable her to continue with her walking routine of 3 mile walks Prior Functional Status Baseline Function- ADL's Independent Baseline Function- Mobility Independent Baseline Function- Recreation/Hobbies walking 3 miles a few days per week Current Functional Impairments (Reported) Functional Limitations- ADL's interuptted sleep due to apin, unable to lay on her sides Functional Limitations- Mobility/Gait limited due to pain PT-OP-C Subjective Start: 05/12/18 09:32 Freq: Status: Active Protocol: Document 05/20/18 16:03 [facility] (Rec: 05/20/18 16:11 [facility] [email or web address]) OP-PT Subjective Patient Comments Patient Comments Verena reports she was really sore after driving home last visit. She notes she has pain after she has been sitting and she goes to stand PT-OP-F Manual Assessment Start: 05/12/18 09:32 Freq: Status: Active Protocol: Document 05/11/18 13:45 [facility] (Rec: 05/12/18 09:54 [facility] [email or web address]) Manual Assessments Soft Tissue Assessment Soft Tissue Mobility Assessment swelling noted at the medial joint line and medial to the tibial tuberosity Joint Mobility Assessment Joint Mobility Assessment hypomobility of the patella B due to knee locked in hyperextension at rest PT-OP-G Mobility & Gait Start: 05/12/18 09:32 Freq: Status: Active Protocol: Document 05/11/18 13:45 [facility] (Rec: 05/12/18 09:54 [facility] [email or web address]) OP Mobility Evaluation Transfers Sit to Stand Ind but painful PT-OP-K Range of Motion Start: 05/12/18 09:32 Freq: Status: Active Protocol: Document 05/11/18 13:45 [facility] (Rec: 05/12/18 09:54 [facility] [email or web address]) Knee Goniometric Range of Motion Knee Measured in Degrees Left Knee ROM WFL Yes Flexion Active (degrees) 120 Hyper-Extension Active 5 Right Knee ROM WFL No Patient Position Supine Flexion Active (degrees) 110 Hyper-Extension Active 5 PT-OP-M Strength Start: 05/12/18 09:32 Freq: Status: Active Protocol: Document 05/11/18 13:45 [facility] (Rec: 05/12/18 09:54 [facility] [email or web address]) Knee Strength Knee Manual Muscle Testing Left Flexion (S2) 4 Good Extension (L3) 4 Good Right Flexion (S2) 4 Good Extension (L3) 3 Fair PT-OP-Q Treatments Start: 05/12/18 09:32 Freq: Status: Active Protocol: Document 05/20/18 16:03 [facility] (Rec: 05/20/18 16:11 [facility] [email or web address]) Cardio Equipment Recumbent Elliptical (Biodex) Duration (Minutes) 5 Therapeutic Exercises Supine Exercises 5 Supine Exercise Name roll outs with theraband Equipment Used level 1 Reps/Minutes 3 x 10 4 Supine Exercise Name bridges Reps/Minutes 2 x 10 3 Supine Exercise Name not performed due to pain 2 Supine Exercise Name quad sets Side right Reps/Minutes x 10 1 Supine Exercise Name supine heel slides and ball rolls Side bilateral Reps/Minutes 20x Comments pt has a ball at home Standing Exercises 2 Standing Exercise Name standing hamstring curl Reps/Minutes 2 x 10 1 Standing Exercise Name standing calf stretch Manual Therapy Treatment Taping 1 Body Location kinesiotape for medial knee swelling and patella support PT-OP-R Modalities Start: 05/12/18 09:32 Freq: Status: Active Protocol: Document 05/20/18 16:03 [facility] (Rec: 05/20/18 16:11 [facility] [email or web address]) Hot Pack/Cold Pack Treatment Ice Massage Location right medial knee Patient Position Supine Treatment Duration (minutes) 5 Patient Tolerance Good Ultrasound Therapy Treatment Right Medial Knee Patient Position Supine Coupling Medium Ultrasound Gel Applicator Size (cm2) 5 Mode Setting Continuous Duty Cycle 100% Intensity Setting (w/cm2) 1.5 PT-OP-T Assessment and Plan Start: 05/12/18 09:32 Freq: Status: Active Protocol: Document 05/20/18 16:03 [facility] (Rec: 05/20/18 16:11 [facility] [email or web address]) Physical Therapy Assessment Assessment Summary Assessment I held off on extension exercises today as it seemed to flare up Verena's symptoms. She has a large valgus at the medial knee. Kinesiotaping was tried today for swelling and patella support. I encouraged Verena to ice at home Physical Therapy Plan Frequency and Duration Frequency of Treatment 2x/Week Duration of Treatment 8 weeks Plan of Care Start Date 05/11/18 Plan of Care End Date 07/06/18 Therapeutic Interventions Therapeutic Interventions Home Exercise Program Manual Therapy Patient/Caregiver Education Soft Tissue Mobilization Taping Therapeutic Exercises Modalities Cold Pack/Ice Massage Electric Stimulation Ultrasound Next Visit Focus/Plan Next Note Type Treatment Note Next Visit Plan assess kinesiotape trial next visit and progress as tolerated.
--- NOTE | 2018-06-03 11:41 | PT.OTN ---
Current Diagnoses Pain in right knee (06/03/18) Physical Therapy Treatment Note PT-OP-A Visit Information Start: 05/12/18 09:32 Freq: Status: Active Protocol: Document 06/03/18 11:28 [facility] (Rec: 06/03/18 11:40 [facility] [email or web address]) Out-Patient Physical Therapy Visit Information Visit Information Visit Type Treatment Note Visit Start Time 10:30 Visit Stop Time 11:15 Total Visit Minutes 45 Visit Number 4 Evaluation Information Evaluation Date 05/11/18 PT-OP-B Current Condition Start: 05/12/18 09:32 Freq: Status: Active Protocol: Document 05/11/18 13:45 [facility] (Rec: 05/12/18 09:54 [facility] [email or web address]) Current Condition History of Current Condition Onset Date 3 months ago Current Complaints c/o right sided medial knee pain History of Current Condition 57 year old female on disability with c/o right sided medial knee pain. Symptoms begain 3 months ago with an insidious onset. Verena notes she just began experiencing medial knee pain on the right which is worsening. 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 She received a cortisone injection 2 weeks ago but this did not change things. Sx are worse with walking and twisting activities and after she has been sitting for a period of time. She is not a surgical candidate at this time due to elevated liver enzymes. Treatment Goals Patient/Caregiver Goals to decrease pain and enable her to continue with her walking routine of 3 mile walks Prior Functional Status Baseline Function- ADL's Independent Baseline Function- Mobility Independent Baseline Function- Recreation/Hobbies walking 3 miles a few days per week Current Functional Impairments (Reported) Functional Limitations- ADL's interuptted sleep due to apin, unable to lay on her sides Functional Limitations- Mobility/Gait limited due to pain PT-OP-C Subjective Start: 05/12/18 09:32 Freq: Status: Active Protocol: Document 06/03/18 11:28 [facility] (Rec: 06/03/18 11:40 [facility] [email or web address]) OP-PT Subjective Patient Comments Patient Comments Verena reports she is doing better overall, sleeping on her side still aggravates her medial knee PT-OP-F Manual Assessment Start: 05/12/18 09:32 Freq: Status: Active Protocol: Document 05/11/18 13:45 [facility] (Rec: 05/12/18 09:54 [facility] [email or web address]) Manual Assessments Soft Tissue Assessment Soft Tissue Mobility Assessment swelling noted at the medial joint line and medial to the tibial tuberosity Joint Mobility Assessment Joint Mobility Assessment hypomobility of the patella B due to knee locked in hyperextension at rest PT-OP-G Mobility & Gait Start: 05/12/18 09:32 Freq: Status: Active Protocol: Document 05/11/18 13:45 [facility] (Rec: 05/12/18 09:54 [facility] [email or web address]) OP Mobility Evaluation Transfers Sit to Stand Ind but painful PT-OP-K Range of Motion Start: 05/12/18 09:32 Freq: Status: Active Protocol: Document 05/11/18 13:45 [facility] (Rec: 05/12/18 09:54 [facility] [email or web address]) Knee Goniometric Range of Motion Knee Measured in Degrees Left Knee ROM WFL Yes Flexion Active (degrees) 120 Hyper-Extension Active 5 Right Knee ROM WFL No Patient Position Supine Flexion Active (degrees) 110 Hyper-Extension Active 5 PT-OP-M Strength Start: 05/12/18 09:32 Freq: Status: Active Protocol: Document 05/11/18 13:45 [facility] (Rec: 05/12/18 09:54 [facility] [email or web address]) Knee Strength Knee Manual Muscle Testing Left Flexion (S2) 4 Good Extension (L3) 4 Good Right Flexion (S2) 4 Good Extension (L3) 3 Fair PT-OP-Q Treatments Start: 05/12/18 09:32 Freq: Status: Active Protocol: Document 06/03/18 11:28 [facility] (Rec: 06/03/18 11:40 [facility] [email or web address]) Cardio Equipment Recumbent Elliptical (Biodex) Duration (Minutes) 5 Gym Equipment Shuttle Recovery Unilateral Squats Details single leg squat Resistance 25# Bilateral Squats Details bilateral Resistance 75# Therapeutic Exercises Supine Exercises 5 Supine Exercise Name roll outs with theraband Equipment Used level 1 Reps/Minutes 3 x 10 4 Supine Exercise Name bridges with resistance around thighs and slight hip ER Reps/Minutes 2 x 10 1 Supine Exercise Name supine heel slides and ball rolls Side bilateral Reps/Minutes 20x Comments pt has a ball at home Standing Exercises 4 Standing Exercise Name sit-stand Reps/Minutes x 10 Comments cues to avoid knee hyper extension 3 Standing Exercise Name standing quad stretch with ball 2 Standing Exercise Name standing hamstring curl Reps/Minutes 2 x 10 1 Standing Exercise Name standing calf stretch PT-OP-R Modalities Start: 05/12/18 09:32 Freq: Status: Active Protocol: Document 06/03/18 11:28 [facility] (Rec: 06/03/18 11:40 [facility] [email or web address]) Ultrasound Therapy Treatment Right Medial Knee Patient Position Supine Coupling Medium Ultrasound Gel Applicator Size (cm2) 5 Mode Setting Continuous Duty Cycle 100% Intensity Setting (w/cm2) 1.5 PT-OP-T Assessment and Plan Start: 05/12/18 09:32 Freq: Status: Active Protocol: Document 06/03/18 11:28 [facility] (Rec: 06/03/18 11:40 [facility] [email or web address]) Physical Therapy Assessment Assessment Summary Assessment verena does much better with many verbal cues to avoid knee hyperextension. We have focused on flexion based exercises and avoiding locking the knee. She tolerated the shuttle well today Physical Therapy Plan Frequency and Duration Frequency of Treatment 2x/Week Duration of Treatment 8 weeks Plan of Care Start Date 05/11/18 Plan of Care End Date 07/06/18 Therapeutic Interventions Therapeutic Interventions Home Exercise Program Manual Therapy Patient/Caregiver Education Soft Tissue Mobilization Taping Therapeutic Exercises Modalities Cold Pack/Ice Massage Electric Stimulation Ultrasound Next Visit Focus/Plan Next Note Type Treatment Note Next Visit Plan continue with knee stabilization avoiding valgus and knee hyperextension
--- NOTE | 2018-06-10 14:00 | PT.OTN ---
Current Diagnoses Pain in right knee (06/08/18) Physical Therapy Treatment Note PT-OP-A Visit Information Start: 05/12/18 09:32 Freq: Status: Active Protocol: Document 06/08/18 10:30 [facility] (Rec: 06/10/18 14:00 [facility] [email or web address]) Out-Patient Physical Therapy Visit Information Visit Information Visit Type Treatment Note Visit Start Time 10:30 Visit Stop Time 11:15 Total Visit Minutes 45 Visit Number 5 PT-OP-B Current Condition Start: 05/12/18 09:32 Freq: Status: Active Protocol: Document 05/11/18 13:45 [facility] (Rec: 05/12/18 09:54 [facility] [email or web address]) Current Condition History of Current Condition Onset Date 3 months ago Current Complaints c/o right sided medial knee pain History of Current Condition 57 year old female on disability with c/o right sided medial knee pain. Symptoms begain 3 months ago with an insidious onset. Verena notes she just began experiencing medial knee pain on the right which is worsening. 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 She received a cortisone injection 2 weeks ago but this did not change things. Sx are worse with walking and twisting activities and after she has been sitting for a period of time. She is not a surgical candidate at this time due to elevated liver enzymes. Treatment Goals Patient/Caregiver Goals to decrease pain and enable her to continue with her walking routine of 3 mile walks Prior Functional Status Baseline Function- ADL's Independent Baseline Function- Mobility Independent Baseline Function- Recreation/Hobbies walking 3 miles a few days per week Current Functional Impairments (Reported) Functional Limitations- ADL's interuptted sleep due to apin, unable to lay on her sides Functional Limitations- Mobility/Gait limited due to pain PT-OP-C Subjective Start: 05/12/18 09:32 Freq: Status: Active Protocol: Document 06/08/18 10:30 [facility] (Rec: 06/10/18 14:00 [facility] [email or web address]) OP-PT Subjective Patient Comments Patient Comments Verena reports she is doing better. She hasn't tried walking yet but her knee is feeling better overall PT-OP-F Manual Assessment Start: 05/12/18 09:32 Freq: Status: Active Protocol: Document 05/11/18 13:45 [facility] (Rec: 05/12/18 09:54 [facility] [email or web address]) Manual Assessments Soft Tissue Assessment Soft Tissue Mobility Assessment swelling noted at the medial joint line and medial to the tibial tuberosity Joint Mobility Assessment Joint Mobility Assessment hypomobility of the patella B due to knee locked in hyperextension at rest PT-OP-G Mobility & Gait Start: 05/12/18 09:32 Freq: Status: Active Protocol: Document 05/11/18 13:45 [facility] (Rec: 05/12/18 09:54 [facility] [email or web address]) OP Mobility Evaluation Transfers Sit to Stand Ind but painful PT-OP-K Range of Motion Start: 05/12/18 09:32 Freq: Status: Active Protocol: Document 05/11/18 13:45 [facility] (Rec: 05/12/18 09:54 [facility] [email or web address]) Knee Goniometric Range of Motion Knee Measured in Degrees Left Knee ROM WFL Yes Flexion Active (degrees) 120 Hyper-Extension Active 5 Right Knee ROM WFL No Patient Position Supine Flexion Active (degrees) 110 Hyper-Extension Active 5 PT-OP-M Strength Start: 05/12/18 09:32 Freq: Status: Active Protocol: Document 05/11/18 13:45 [facility] (Rec: 05/12/18 09:54 [facility] [email or web address]) Knee Strength Knee Manual Muscle Testing Left Flexion (S2) 4 Good Extension (L3) 4 Good Right Flexion (S2) 4 Good Extension (L3) 3 Fair PT-OP-Q Treatments Start: 05/12/18 09:32 Freq: Status: Active Protocol: Document 06/08/18 10:30 [facility] (Rec: 06/10/18 14:00 [facility] [email or web address]) Cardio Equipment Recumbent Elliptical (Biodex) Duration (Minutes) 5 Gym Equipment Shuttle Recovery Unilateral Squats Details single leg squat Resistance 25# Bilateral Squats Details bilateral Resistance 75# Therapeutic Exercises Supine Exercises 5 Supine Exercise Name roll outs with theraband Equipment Used level 1 Reps/Minutes 3 x 10 4 Supine Exercise Name bridges with resistance around thighs and slight hip ER Reps/Minutes 2 x 10 1 Supine Exercise Name supine heel slides and ball rolls Side bilateral Reps/Minutes 20x Comments pt has a ball at home Prone Exercises 1 Prone Exercise Name prone hamstring curls Comments no resistance Sidelying Exercises 1 Sidelying Exercise Name clam shells Reps/Minutes 3 x 10 Standing Exercises 5 Standing Exercise Name sit-stand 3 Standing Exercise Name standing quad stretch with ball 2 Standing Exercise Name standing hamstring curl Reps/Minutes 2 x 10 1 Standing Exercise Name standing calf stretch Manual Therapy Treatment Taping 1 Body Location kinesiotape patella support PT-OP-R Modalities Start: 05/12/18 09:32 Freq: Status: Active Protocol: Document 06/08/18 10:30 [facility] (Rec: 06/10/18 14:00 [facility] [email or web address]) Ultrasound Therapy Treatment Right Medial Knee Patient Position Supine Coupling Medium Ultrasound Gel Applicator Size (cm2) 5 Mode Setting Continuous Duty Cycle 100% Intensity Setting (w/cm2) 1.5 PT-OP-T Assessment and Plan Start: 05/12/18 09:32 Freq: Status: Active Protocol: Document 06/08/18 10:30 [facility] (Rec: 06/10/18 14:00 [facility] [email or web address]) Physical Therapy Assessment Assessment Summary Assessment good tolerance for ther ex and Verena is working on not hyperextending her knee. Physical Therapy Plan Frequency and Duration Frequency of Treatment 2x/Week Duration of Treatment 8 weeks Plan of Care Start Date 05/11/18 Plan of Care End Date 07/06/18 Therapeutic Interventions Therapeutic Interventions Home Exercise Program Manual Therapy Patient/Caregiver Education Soft Tissue Mobilization Taping Therapeutic Exercises Modalities Cold Pack/Ice Massage Electric Stimulation Ultrasound Next Visit Focus/Plan Next Note Type Treatment Note Next Visit Plan continue with knee stabilization avoiding valgus and knee hyperextension
--- NOTE | 2018-06-10 16:22 | PT.OTN ---
Current Diagnoses Pain in right knee (06/10/18) Physical Therapy Treatment Note PT-OP-A Visit Information Start: 05/12/18 09:32 Freq: Status: Active Protocol: Document 06/10/18 16:11 [facility] (Rec: 06/10/18 16:21 [facility] [email or web address]) Out-Patient Physical Therapy Visit Information Visit Information Visit Type Treatment Note Visit Start Time 15:15 Visit Stop Time 14:05 Total Visit Minutes 50 Visit Number 6 Evaluation Information Evaluation Date 05/11/18 PT-OP-B Current Condition Start: 05/12/18 09:32 Freq: Status: Active Protocol: Document 05/11/18 13:45 [facility] (Rec: 05/12/18 09:54 [facility] [email or web address]) Current Condition History of Current Condition Onset Date 3 months ago Current Complaints c/o right sided medial knee pain History of Current Condition 57 year old female on disability with c/o right sided medial knee pain. Symptoms begain 3 months ago with an insidious onset. Verena notes she just began experiencing medial knee pain on the right which is worsening. 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 She received a cortisone injection 2 weeks ago but this did not change things. Sx are worse with walking and twisting activities and after she has been sitting for a period of time. She is not a surgical candidate at this time due to elevated liver enzymes. Treatment Goals Patient/Caregiver Goals to decrease pain and enable her to continue with her walking routine of 3 mile walks Prior Functional Status Baseline Function- ADL's Independent Baseline Function- Mobility Independent Baseline Function- Recreation/Hobbies walking 3 miles a few days per week Current Functional Impairments (Reported) Functional Limitations- ADL's interuptted sleep due to apin, unable to lay on her sides Functional Limitations- Mobility/Gait limited due to pain PT-OP-C Subjective Start: 05/12/18 09:32 Freq: Status: Active Protocol: Document 06/10/18 16:11 [facility] (Rec: 06/10/18 16:21 [facility] [email or web address]) OP-PT Subjective Patient Comments Patient Comments Doing better and has been able to sleep on her side. Verena reports she likes the tape for knee support as well PT-OP-F Manual Assessment Start: 05/12/18 09:32 Freq: Status: Active Protocol: Document 05/11/18 13:45 [facility] (Rec: 05/12/18 09:54 [facility] [email or web address]) Manual Assessments Soft Tissue Assessment Soft Tissue Mobility Assessment swelling noted at the medial joint line and medial to the tibial tuberosity Joint Mobility Assessment Joint Mobility Assessment hypomobility of the patella B due to knee locked in hyperextension at rest PT-OP-G Mobility & Gait Start: 05/12/18 09:32 Freq: Status: Active Protocol: Document 05/11/18 13:45 [facility] (Rec: 05/12/18 09:54 [facility] [email or web address]) OP Mobility Evaluation Transfers Sit to Stand Ind but painful PT-OP-K Range of Motion Start: 05/12/18 09:32 Freq: Status: Active Protocol: Document 05/11/18 13:45 [facility] (Rec: 05/12/18 09:54 [facility] [email or web address]) Knee Goniometric Range of Motion Knee Measured in Degrees Left Knee ROM WFL Yes Flexion Active (degrees) 120 Hyper-Extension Active 5 Right Knee ROM WFL No Patient Position Supine Flexion Active (degrees) 110 Hyper-Extension Active 5 PT-OP-M Strength Start: 05/12/18 09:32 Freq: Status: Active Protocol: Document 05/11/18 13:45 [facility] (Rec: 05/12/18 09:54 [facility] [email or web address]) Knee Strength Knee Manual Muscle Testing Left Flexion (S2) 4 Good Extension (L3) 4 Good Right Flexion (S2) 4 Good Extension (L3) 3 Fair PT-OP-Q Treatments Start: 05/12/18 09:32 Freq: Status: Active Protocol: Document 06/10/18 16:11 [facility] (Rec: 06/10/18 16:21 [facility] [email or web address]) Gym Equipment Shuttle Recovery Unilateral Squats Details single leg squat Resistance 25# Bilateral Squats Details bilateral Resistance 75# Therapeutic Exercises Supine Exercises 5 Supine Exercise Name roll outs with theraband Equipment Used level 1 Reps/Minutes 3 x 10 4 Supine Exercise Name bridges with resistance around thighs and slight hip ER Reps/Minutes 2 x 10 3 Supine Exercise Name not performed due to pain 2 Supine Exercise Name quad sets Side right Reps/Minutes x 10 1 Supine Exercise Name supine heel slides and ball rolls Side bilateral Reps/Minutes 20x Comments pt has a ball at home Prone Exercises 1 Prone Exercise Name prone hamstring curls Comments no resistance Sidelying Exercises 1 Sidelying Exercise Name clam shells Reps/Minutes 3 x 10 Standing Exercises 4 Standing Exercise Name sit-stand Reps/Minutes x 10 Comments cues to avoid knee hyper extension 3 Standing Exercise Name standing quad stretch with ball 2 Standing Exercise Name standing hamstring curl Reps/Minutes 2 x 10 1 Standing Exercise Name standing calf stretch PT-OP-R Modalities Start: 05/12/18 09:32 Freq: Status: Active Protocol: Document 06/08/18 10:30 [facility] (Rec: 06/10/18 14:00 [facility] [email or web address]) Ultrasound Therapy Treatment Right Medial Knee Patient Position Supine Coupling Medium Ultrasound Gel Applicator Size (cm2) 5 Mode Setting Continuous Duty Cycle 100% Intensity Setting (w/cm2) 1.5 PT-OP-T Assessment and Plan Start: 05/12/18 09:32 Freq: Status: Active Protocol: Document 06/10/18 16:11 [facility] (Rec: 06/10/18 16:21 [facility] [email or web address]) Physical Therapy Assessment Assessment Summary Assessment improved tolerance for ther ex and decreased c/o knee pain overall. Continue working on strengthening and avoiding the valgus angle at the knee Physical Therapy Plan Frequency and Duration Frequency of Treatment 2x/Week Duration of Treatment 8 weeks Plan of Care Start Date 05/11/18 Plan of Care End Date 07/06/18 Therapeutic Interventions Therapeutic Interventions Home Exercise Program Manual Therapy Patient/Caregiver Education Soft Tissue Mobilization Taping Therapeutic Exercises Modalities Cold Pack/Ice Massage Electric Stimulation Ultrasound Next Visit Focus/Plan Next Note Type Treatment Note Next Visit Plan continue with knee stabilization avoiding valgus and knee hyperextension
--- NOTE | 2018-06-17 11:37 | PT.OTN ---
Current Diagnoses Pain in right knee (06/17/18) Physical Therapy Treatment Note PT-OP-A Visit Information Start: 05/12/18 09:32 Freq: Status: Active Protocol: Document 06/17/18 11:29 [facility] (Rec: 06/17/18 11:35 [facility] [email or web address]) Out-Patient Physical Therapy Visit Information Visit Information Visit Type Treatment Note Visit Start Time 10:30 Visit Stop Time 11:15 Total Visit Minutes 45 Visit Number 7 Evaluation Information Evaluation Date 05/11/18 PT-OP-B Current Condition Start: 05/12/18 09:32 Freq: Status: Active Protocol: Document 05/11/18 13:45 [facility] (Rec: 05/12/18 09:54 [facility] [email or web address]) Current Condition History of Current Condition Onset Date 3 months ago Current Complaints c/o right sided medial knee pain History of Current Condition 57 year old female on disability with c/o right sided medial knee pain. Symptoms begain 3 months ago with an insidious onset. Verena notes she just began experiencing medial knee pain on the right which is worsening. 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 She received a cortisone injection 2 weeks ago but this did not change things. Sx are worse with walking and twisting activities and after she has been sitting for a period of time. She is not a surgical candidate at this time due to elevated liver enzymes. Treatment Goals Patient/Caregiver Goals to decrease pain and enable her to continue with her walking routine of 3 mile walks Prior Functional Status Baseline Function- ADL's Independent Baseline Function- Mobility Independent Baseline Function- Recreation/Hobbies walking 3 miles a few days per week Current Functional Impairments (Reported) Functional Limitations- ADL's interuptted sleep due to apin, unable to lay on her sides Functional Limitations- Mobility/Gait limited due to pain PT-OP-C Subjective Start: 05/12/18 09:32 Freq: Status: Active Protocol: Document 06/17/18 11:29 [facility] (Rec: 06/17/18 11:35 [facility] [email or web address]) OP-PT Subjective Patient Comments Patient Comments Able to sleep on left side consistently now. Tried walking but it caused joint pain. PT-OP-F Manual Assessment Start: 05/12/18 09:32 Freq: Status: Active Protocol: Document 05/11/18 13:45 [facility] (Rec: 12/12/18 09:54 [facility] [email or web address]) Manual Assessments Soft Tissue Assessment Soft Tissue Mobility Assessment swelling noted at the medial joint line and medial to the tibial tuberosity Joint Mobility Assessment Joint Mobility Assessment hypomobility of the patella B due to knee locked in hyperextension at rest PT-OP-G Mobility & Gait Start: 05/12/18 09:32 Freq: Status: Active Protocol: Document 05/11/18 13:45 [facility] (Rec: 05/12/18 09:54 [facility] [email or web address]) OP Mobility Evaluation Transfers Sit to Stand Ind but painful PT-OP-K Range of Motion Start: 05/12/18 09:32 Freq: Status: Active Protocol: Document 05/11/18 13:45 [facility] (Rec: 05/12/18 09:54 [facility] [email or web address]) Knee Goniometric Range of Motion Knee Measured in Degrees Left Knee ROM WFL Yes Flexion Active (degrees) 120 Hyper-Extension Active 5 Right Knee ROM WFL No Patient Position Supine Flexion Active (degrees) 110 Hyper-Extension Active 5 PT-OP-M Strength Start: 05/12/18 09:32 Freq: Status: Active Protocol: Document 05/11/18 13:45 [facility] (Rec: 05/12/18 09:54 [facility] [email or web address]) Knee Strength Knee Manual Muscle Testing Left Flexion (S2) 4 Good Extension (L3) 4 Good Right Flexion (S2) 4 Good Extension (L3) 3 Fair PT-OP-Q Treatments Start: 05/12/18 09:32 Freq: Status: Active Protocol: Document 06/17/18 11:29 [facility] (Rec: 06/17/18 11:35 [facility] [email or web address]) Cardio Equipment Recumbent Elliptical (Biodex) Duration (Minutes) 5 Gym Equipment Shuttle Recovery Unilateral Squats Details single leg squat Resistance 25# Bilateral Squats Details bilateral Resistance 75# Therapeutic Exercises Supine Exercises 5 Supine Exercise Name roll outs with theraband Equipment Used level 1 Reps/Minutes 3 x 10 4 Supine Exercise Name bridges with resistance around thighs and slight hip ER Reps/Minutes 2 x 10 2 Supine Exercise Name quad sets Side right Reps/Minutes x 10 1 Supine Exercise Name supine heel slides and ball rolls Side bilateral Reps/Minutes 20x Comments pt has a ball at home Sidelying Exercises 1 Sidelying Exercise Name clam shells Reps/Minutes 3 x 10 Standing Exercises 6 Standing Exercise Name mini lunges Reps/Minutes x 10 4 Standing Exercise Name sit-stand Reps/Minutes 2 x 10 Comments cues to avoid knee hyper extension 3 Standing Exercise Name standing quad stretch with ball 2 Standing Exercise Name standing hamstring curl Reps/Minutes 2 x 10 1 Standing Exercise Name standing calf stretch PT-OP-R Modalities Start: 05/12/18 09:32 Freq: Status: Active Protocol: Document 06/17/18 11:29 [facility] (Rec: 06/17/18 11:35 [facility] [email or web address]) Ultrasound Therapy Treatment Right Medial Knee Patient Position Supine Coupling Medium Ultrasound Gel Applicator Size (cm2) 5 Mode Setting Continuous Duty Cycle 100% Intensity Setting (w/cm2) 1.5 PT-OP-T Assessment and Plan Start: 05/12/18 09:32 Freq: Status: Active Protocol: Document 06/17/18 11:29 [facility] (Rec: 06/17/18 11:35 [facility] [email or web address]) Physical Therapy Assessment Assessment Summary Assessment discussed walking in the pool as a alternative until joint pain has improved, also discussed riding a stationary bike more days per week. Physical Therapy Plan Frequency and Duration Frequency of Treatment 2x/Week Duration of Treatment 8 weeks Plan of Care Start Date 05/11/18 Plan of Care End Date 07/06/18 Therapeutic Interventions Therapeutic Interventions Home Exercise Program Manual Therapy Patient/Caregiver Education Soft Tissue Mobilization Taping Therapeutic Exercises Modalities Cold Pack/Ice Massage Electric Stimulation Ultrasound Next Visit Focus/Plan Next Note Type Treatment Note Next Visit Plan contrinue progressing knee stabilization exercises. Check in on tolerance to mini lunges
--- NOTE | 2018-07-01 15:00 | PT.OTN ---
Current Diagnoses Pain in right knee (07/01/18) Physical Therapy Treatment Note PT-OP-A Visit Information Start: 05/12/18 09:32 Freq: Status: Active Protocol: Document 07/01/18 14:53 AMH (Rec: 07/01/18 14:57 AMH [email or web address]) Out-Patient Physical Therapy Visit Information Visit Information Visit Type Treatment Note Visit Start Time 10:30 Visit Stop Time 11:15 Total Visit Minutes 45 Visit Number 9 Evaluation Information Evaluation Date 05/11/18 PT-OP-B Current Condition Start: 05/12/18 09:32 Freq: Status: Active Protocol: Document 05/11/18 13:45 AMH (Rec: 05/12/18 09:54 AMH [email or web address]) Current Condition History of Current Condition Onset Date 3 months ago Current Complaints c/o right sided medial knee pain History of Current Condition 57 year old female on disability with c/o right sided medial knee pain. Symptoms begain 3 months ago with an insidious onset. Verena notes she just began experiencing medial knee pain on the right which is worsening. 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 She received a cortisone injection 2 weeks ago but this did not change things. Sx are worse with walking and twisting activities and after she has been sitting for a period of time. She is not a surgical candidate at this time due to elevated liver enzymes. Treatment Goals Patient/Caregiver Goals to decrease pain and enable her to continue with her walking routine of 3 mile walks Prior Functional Status Baseline Function- ADL's Independent Baseline Function- Mobility Independent Baseline Function- Recreation/Hobbies walking 3 miles a few days per week Current Functional Impairments (Reported) Functional Limitations- ADL's interuptted sleep due to apin, unable to lay on her sides Functional Limitations- Mobility/Gait limited due to pain PT-OP-C Subjective Start: 05/12/18 09:32 Freq: Status: Active Protocol: Document 07/01/18 14:53 AMH (Rec: 07/01/18 14:57 AMH [email or web address]) OP-PT Subjective Patient Comments Patient Comments Verena reports she is doing much better and her knee pain is decreased overall. She feels independent with her home program and is ready to DC PT-OP-F Manual Assessment Start: 05/12/18 09:32 Freq: Status: Active Protocol: Document 05/11/18 13:45 AMH (Rec: 05/12/18 09:54 AMH [email or web address]) Manual Assessments Soft Tissue Assessment Soft Tissue Mobility Assessment swelling noted at the medial joint line and medial to the tibial tuberosity Joint Mobility Assessment Joint Mobility Assessment hypomobility of the patella B due to knee locked in hyperextension at rest PT-OP-G Mobility & Gait Start: 05/12/18 09:32 Freq: Status: Active Protocol: Document 05/11/18 13:45 AMH (Rec: 05/12/18 09:54 AMH [email or web address]) OP Mobility Evaluation Transfers Sit to Stand Ind but painful PT-OP-K Range of Motion Start: 05/12/18 09:32 Freq: Status: Active Protocol: Document 05/11/18 13:45 AMH (Rec: 05/12/18 09:54 AMH [email or web address]) Knee Goniometric Range of Motion Knee Measured in Degrees Left Knee ROM WFL Yes Flexion Active (degrees) 120 Hyper-Extension Active 5 Right Knee ROM WFL No Patient Position Supine Flexion Active (degrees) 110 Hyper-Extension Active 5 PT-OP-M Strength Start: 05/12/18 09:32 Freq: Status: Active Protocol: Document 05/11/18 13:45 AMH (Rec: 05/12/18 09:54 AMH [email or web address]) Knee Strength Knee Manual Muscle Testing Left Flexion (S2) 4 Good Extension (L3) 4 Good Right Flexion (S2) 4 Good Extension (L3) 3 Fair PT-OP-Q Treatments Start: 05/12/18 09:32 Freq: Status: Active Protocol: Document 07/01/18 14:58 AMH (Rec: 07/01/18 15:00 AMH [email or web address]) Cardio Equipment Recumbent Elliptical (Biodex) Duration (Minutes) 5 Gym Equipment Shuttle Recovery Unilateral Squats Details single leg squat Resistance 25# Bilateral Squats Details bilateral Resistance 75# Therapeutic Exercises Supine Exercises 5 Supine Exercise Name roll outs with theraband Equipment Used level 1 Reps/Minutes 3 x 10 4 Supine Exercise Name bridges with resistance around thighs and slight hip ER Reps/Minutes 2 x 10 1 Supine Exercise Name supine heel slides and ball rolls Side bilateral Reps/Minutes 20x Comments pt has a ball at home Standing Exercises 6 Standing Exercise Name mini lunges Reps/Minutes x 10 5 Standing Exercise Name sit-stand 4 Standing Exercise Name sit-stand Reps/Minutes 2 x 10 Comments cues to avoid knee hyper extension 3 Standing Exercise Name standing quad stretch with ball 2 Standing Exercise Name standing hamstring curl Reps/Minutes 2 x 10 1 Standing Exercise Name standing calf stretch Manual Therapy Treatment Taping 1 Body Location kinesiotape patella support PT-OP-R Modalities Start: 05/12/18 09:32 Freq: Status: Active Protocol: Document 06/17/18 11:29 AMH (Rec: 06/17/18 11:35 AMH [email or web address]) Ultrasound Therapy Treatment Right Medial Knee Patient Position Supine Coupling Medium Ultrasound Gel Applicator Size (cm2) 5 Mode Setting Continuous Duty Cycle 100% Intensity Setting (w/cm2) 1.5 PT-OP-T Assessment and Plan Start: 05/12/18 09:32 Freq: Status: Active Protocol: Document 07/01/18 14:53 AMH (Rec: 07/01/18 14:57 AMH [email or web address]) Physical Therapy Assessment Goals Four Impairment swelling of the medial joint line and medial to the tibial tuberosity Short Term Goal (STG) decreased visable swelling and edema at the medial joint line with ther ex, modalities, and manual therapy techniques STG Duration GOAL MET 07/01/18 Three Impairment decreased strength of the right knee Long-Term Goal (LTG) Improve strength and tolerance of ther ex for improved support of the right knee. Verena is able to perform a functional squat in good form LTG Duration GOAL MET 07/01/18 Two Impairment pain rated 4/10 medial right knee Short Term Goal (STG) Verena has decreased c/o right knee pain at rest and is able to sit-stand with decreased pain asd well as sleep through the night STG Duration GOAL MET 07/01/18 One Impairment decreased knee ROM on the right Short Term Goal (STG) Improve full knee flexion to 120 deg to match the left LE STG Duration GOAL MET 07/01/18 Progress Towards Goals Progress Towards Goals Goals Met Assessment Summary Assessment Verena has made good overall progress with physical therapy . She has met all her established goals and will be discharged from PT at this time. Physical Therapy Plan Discharge Physical Therapy Discharge Reasons Goals Met
== END 2018-07-02 10:11 ==
LOC: PHYS 10:30
PROVIDERS: PCP Family Medicine; Visit Provider Family Medicine
DX: M25.561 Pain in right knee (principal)
CPT/HCPCS: 97014; 97035; 97110; 97161; G0283

== ENCOUNTER → 2018-07-15 12:48 | Outpatient (CLI) | payer MEDICARE, MEDICAID, SELFPAY ==
[2018-07-15 15:52] LABS: Thyroid Stimulating Hormone 4.27 uIU/mL (0.47-4.68)
== END ==
PROVIDERS: PCP Family Medicine; Visit Provider Family Medicine
DX: E03.9 Hypothyroidism, unspecified (principal)
CPT/HCPCS: 36415; 84443

== ENCOUNTER → 2018-08-02 09:18 | Outpatient (CLI) | payer MEDICARE, MEDICAID, SELFPAY ==
[2018-08-02 10:29] LABS: Alanine Aminotransferase 33 IU/L (9-52); Albumin 4.3 g/dL (3.5-5.0); Albumin Globulin Ratio 2.2 (1.0-2.8); Alkaline Phosphatase 93 U/L (38-126); Aspartate Aminotransferase 21 IU/L (14-36); Bilirubin Total 0.2 mg/dL (0.2-1.3); Bilirubin Unconjugated 0.1 mg/dL (0.0-1.1); HEMOLYSIS < 15 (0-50); Total Protein 6.3 g/dL (6.3-8.2)
== END ==
PROVIDERS: PCP Family Medicine; Visit Provider Family Medicine
DX: R94.5 Abnormal results of liver function studies (principal)
CPT/HCPCS: 36415; 80076

== ENCOUNTER → 2019-03-09 07:28 | Outpatient (CLI) | payer MEDICARE, MEDICAID, SELFPAY ==
[2019-03-09 08:22] LABS: Hemoglobin 13.6 g/dL (12.0-16.0); Mean Corpuscular HGB Conc 33.2 % (30-36); Mean Corpuscular Hemoglobin 30.8 PG (26-34); Mean Corpuscular Volume 92.8 fL (80-100); Platelet Count 256 X10^3/uL (150-400); Red Blood Cell Count 4.42 X10^6/uL (4.0-5.2); Red Cell Distribution Width 14.5 % (11.6-14.8); White Blood Cell Count 7.5 X10^3/uL (4.5-11.0)
[2019-03-09 08:34] LABS: Alanine Aminotransferase 25 IU/L (9-52); Albumin 4.4 g/dL (3.5-5.0); Albumin Globulin Ratio 1.8 (1.0-2.8); Alkaline Phosphatase 104 U/L (38-126); Aspartate Aminotransferase 29 IU/L (14-36); Bilirubin Total 0.5 mg/dL (0.2-1.3); Blood Urea Nitrogen 14 mg/dL (7-17); Calcium 9.8 mg/dL (8.4-10.2); Carbon Dioxide 31 mmol/L (22-32); Chloride 102 mmol/L (98-107); Cholesterol 170 mg/dL (140-199); Estimated Glomerular Filt Rate > 60.0 mL/min (>60); Globulin 2.4 g/dL (1.7-4.1); Glucose 112 mg/dL (70-100); HDL Cholesterol 68 mg/dL (40-60); HEMOLYSIS < 15 (0-50); LDL Cholesterol Calculated 82 mg/dL (<100); Potassium 4.9 mmol/L (3.4-5.1); Sodium 142 mmol/L (137-145); Total Protein 6.8 g/dL (6.3-8.2); Triglycerides 100 mg/dL (35-150)
[2019-03-09 09:21] LABS: Vitamin B12 732 pg/mL (239-931)
[2019-03-09 09:22] LABS: TSH w/ Reflex to FT4 3.17 uIU/mL (0.47-4.68)
[2019-03-09 09:52] LABS: Neutrophils Absolute Manual 4500 /uL (3000-5900); Total Cells Counted 100
[2019-03-09 09:54] LABS: Anisocytosis 1+
[2019-03-09 09:55] LABS: Polychromasia 1+
== END ==
PROVIDERS: PCP Family Medicine; Visit Provider Family Medicine
DX: D64.9 Anemia, unspecified (principal); G47.33 Obstructive sleep apnea (adult) (pediatric)
CPT/HCPCS: 36415; 80053; 80061; 82607; 82728; 84443; 85025

== ENCOUNTER → 2019-05-19 09:35 | Outpatient (CLI) | payer MEDICARE, MEDICAID, SELFPAY ==
--- NOTE | 2019-05-19 09:37 | DI.US.S_ITS ---
PROCEDURE: US PELVIC COMPLETE INDICATIONS: POST MENOPAUSAL BLEEDING TECHNIQUE: Real-time scanning was performed of the pelvic organs, with image documentation. Additional endovaginal scanning was necessary due to incomplete visualization of the adnexal and endometrial structures by transabdominal scanning. COMPARISON: [facility], CT, ABDOMEN/PELVIS WITH CONTRAST, 05/08/2015, 10:35. FINDINGS: Transabdominal scanning: Limited scanning through the kidneys shows no hydronephrosis. No pathologic free abdominal or pelvic fluid. Endovaginal scanning: Uterus: Uterus is normal in size at 7.4 x 3.8 x 4.9 cm. The endometrium measures 5.7 mm in combined thickness. There is a 1.7 x 2.0 x 1.6 cm subserosal fibroid in the right anterior uterine wall. Ovaries: No featureless. IMPRESSION: 1. Endometrium is mildly thickened. In this patient with postmenopausal bleeding, endometri sampling is suggested. 2. A 1.7 x 2.0 x 1.6 cm subserosal fibroid. 3. Ovaries are not visualized. Dictated by: Karen Lock M.D. on 05/19/2019 at 11:09 Approved by: Karen Lock M.D. on 05/19/2019 at 11:13
== END ==
PROVIDERS: PCP Family Medicine; Visit Provider Family Medicine
DX: N95.0 Postmenopausal bleeding (principal); D25.2 Subserosal leiomyoma of uterus; R93.89 Abnormal findings on diagnostic imaging of other specified body structures
CPT/HCPCS: 76830; 76856

== ENCOUNTER → 2020-03-05 08:05 | Outpatient (CLI) | payer MEDICARE, MEDICAID, SELFPAY ==
[2020-03-05 08:36] LABS: Add Manual Diff / Slide Review NO; Basophils Absolute Auto 100 /uL (0-100); Basophils Percent Auto 0.8 % (0-2); Eosinophils Absolute Auto 200 /uL (0-450); Eosinophils Percent Auto 2.6 % (2-4); Hematocrit 40.3 % (36-46); Hemoglobin 13.4 g/dL (12.0-16.0); Lymphocytes Absolute Auto 1400 /uL (1100-4500); Lymphocytes Percent Auto 19.7 % (25-40); Mean Corpuscular HGB Conc 33.3 % (30-36); Mean Corpuscular Hemoglobin 31.4 PG (26-34); Mean Corpuscular Volume 94.1 fL (80-100); Monocytes Absolute Auto 700 /uL (0-900); Monocytes Percent Auto 9.4 % (3-14); Neutrophils Absolute Auto 4800 /uL (1500-7000); Neutrophils Percent Auto 67.5 % (50-75); Platelet Count 221 X10^3/uL (150-400); Red Blood Cell Count 4.28 X10^6/uL (4.0-5.2)
[2020-03-05 08:58] LABS: Alanine Aminotransferase 24 IU/L (<35); Albumin 4.3 g/dL (3.5-5.0); Albumin Globulin Ratio 2.2 (1.0-2.8); Alkaline Phosphatase 120 U/L (38-126); Aspartate Aminotransferase 28 IU/L (14-36); BUN Creatinine Ratio 13.3 (6-22); Bilirubin Total 0.4 mg/dL (0.2-1.3); Blood Urea Nitrogen 10 mg/dL (7-17); Calcium 9.4 mg/dL (8.4-10.2); Carbon Dioxide 33 mmol/L (22-32); Chloride 101 mmol/L (98-107); Cholesterol 172 mg/dL (140-199); Estimated Glomerular Filt Rate > 60.0 mL/min (>60); Glucose 125 mg/dL (80-110); HDL Cholesterol 67 mg/dL (40-60); HEMOLYSIS < 15 (0-50); LDL Cholesterol Calculated 85 mg/dL (<100); Sodium 138 mmol/L (137-145); Total Protein 6.3 g/dL (6.3-8.2); Triglycerides 100 mg/dL (35-150)
[2020-03-05 09:25] LABS: TSH w/ Reflex to FT4 6.34 uIU/mL (0.47-4.68)
[2020-03-05 09:52] LABS: Free T4, Direct Thyroxine 1.01 ng/dL (0.78-2.19)
== END ==
PROVIDERS: PCP Family Medicine; Referring Provider Family Medicine; Visit Provider Family Medicine
DX: E03.9 Hypothyroidism, unspecified (principal); R53.83 Other fatigue
CPT/HCPCS: 36415; 80053; 80061; 84439; 84443; 85025

== ENCOUNTER → 2020-03-31 10:55 | Outpatient (CLI) | payer MEDICARE, MEDICAID, SELFPAY ==
--- NOTE | 2020-03-31 10:56 | DI.MG.S_ITS ---
BILATERAL DIGITAL SCREENING MAMMOGRAM 3D/2D WITH CAD: 03/31/2020 CLINICAL: Routine screening. Comparison is made to exams dated: 10/20/2017 mammogram, 09/12/2016 mammogram, and 06/05/2015 mammogram - [facility]. The tissue of both breasts is predominantly fatty. Current study was also evaluated with a Computer Aided Detection (CAD) system. No significant masses, calcifications, or other findings are seen in either breast. There has been no significant interval change. IMPRESSION: NEGATIVE There is no mammographic evidence of malignancy. A 1 year screening mammogram is recommended. This exam was interpreted at Station ID: [id number]. NOTE: For mammograms, a report in lay terms will be sent to the patient. Approximately 15% of breast malignancies will not be visualized mammographically. In the management of a palpable breast mass, a negative mammogram must not discourage biopsy of a clinically suspicious lesion. Electronically Signed By: Tosha lee/emmie:04/02/2020 10:31:03 letter sent: Normal Exam ACR BI-RADS Category 1: Negative [id number]
== END ==
PROVIDERS: PCP Family Medicine; Referring Provider Family Medicine; Visit Provider Family Medicine
DX: Z12.31 Encounter for screening mammogram for malignant neoplasm of breast (principal)
CPT/HCPCS: 77063; 77067

== ENCOUNTER → 2020-08-07 12:47 | Outpatient (CLI) | payer MEDICARE, MEDICAID, SELFPAY ==
[2020-08-07 15:30] LABS: COVID19 -Nasal RAPID Negative (Negative)
== END ==
PROVIDERS: PCP Family Medicine; Visit Provider Family Medicine Sleep Medicine
DX: Z20.822 Contact with and (suspected) exposure to COVID-19 (principal); G47.31 Primary central sleep apnea; R53.83 Other fatigue; G47.33 Obstructive sleep apnea (adult) (pediatric)
CPT/HCPCS: 87635; C9803

== ENCOUNTER → 2021-05-10 07:49 | Outpatient (CLI) | payer MEDICARE, MEDICAID, SELFPAY ==
[2021-05-10 08:41] LABS: Add Manual Diff / Slide Review NO; Basophils Absolute Auto 0 /uL (0-100); Eosinophils Absolute Auto 100 /uL (0-450); Eosinophils Percent Auto 3.1 % (2-4); Hematocrit 35.8 % (36-46); Hemoglobin 11.8 g/dL (12.0-16.0); Lymphocytes Absolute Auto 1300 /uL (1100-4500); Lymphocytes Percent Auto 27.5 % (25-40); Mean Corpuscular Hemoglobin 30.1 PG (26-34); Mean Corpuscular Volume 91.3 fL (80-100); Monocytes Absolute Auto 600 /uL (0-900); Neutrophils Absolute Auto 2700 /uL (1500-7000); Neutrophils Percent Auto 56.4 % (50-75); Platelet Count 269 X10^3/uL (150-400); Red Blood Cell Count 3.92 X10^6/uL (4.0-5.2); Red Cell Distribution Width 14.3 % (11.6-14.8); White Blood Cell Count 4.8 X10^3/uL (4.5-11.0)
[2021-05-10 09:16] LABS: Alanine Aminotransferase 37 IU/L (<35); Albumin Globulin Ratio 2.1 (1.0-2.8); Alkaline Phosphatase 114 U/L (38-126); Aspartate Aminotransferase 46 IU/L (14-36); BUN Creatinine Ratio 16.7 (6-22); Bilirubin Total 0.3 mg/dL (0.2-1.3); Blood Urea Nitrogen 11 mg/dL (7-17); Calcium 9.3 mg/dL (8.4-10.2); Carbon Dioxide 29 mmol/L (22-32); Chloride 102 mmol/L (98-107); Cholesterol 128 mg/dL (140-199); Estimated Glomerular Filt Rate > 60.0 mL/min (>60); Globulin 1.9 g/dL (1.7-4.1); Glucose 104 mg/dL (80-110); HDL Cholesterol 57 mg/dL (40-60); HEMOLYSIS < 15 (0-50); LDL Cholesterol Calculated 59 mg/dL (<100); Potassium 4.7 mmol/L (3.4-5.1); Sodium 138 mmol/L (137-145); Total Protein 5.9 g/dL (6.3-8.2); Triglycerides 61 mg/dL (35-150)
[2021-05-10 09:37] LABS: TSH w/ Reflex to FT4 2.19 uIU/mL (0.47-4.68)
[2021-05-10 11:16] LABS: Creatinine Urine Random 40.4 mg/dL
[2021-05-10 11:20] LABS: Microalbumi Creatinin Ratio Ur 17.3 ug/mg CR (<30); Microalbumin Urine Random 0.7 mg/dL (0-1.6)
== END ==
PROVIDERS: PCP Family Medicine; Referring Provider Family Medicine; Visit Provider Family Medicine
DX: I10 Essential (primary) hypertension (principal); F31.76 Bipolar disorder, in full remission, most recent episode depressed; F41.1 Generalized anxiety disorder; G47.33 Obstructive sleep apnea (adult) (pediatric)
CPT/HCPCS: 36415; 80053; 80061; 82043; 82570; 84443; 85025

== ENCOUNTER → 2021-09-04 07:27 | Outpatient (CLI) | payer MEDICARE, MEDICAID, SELFPAY ==
[2021-09-06 13:05] LABS: Lamotrigine Lamictal 6.6 ug/mL (2.0-20.0)
== END ==
PROVIDERS: PCP Family Medicine; Referring Provider Psychiatry & Neurology Psychiatry; Visit Provider Psychiatry & Neurology Psychiatry
DX: F31.4 Bipolar disorder, current episode depressed, severe, without psychotic features (principal)
CPT/HCPCS: 36415; 80175; 80299

== ENCOUNTER → 2021-09-09 07:34 | Outpatient (CLI) | payer MEDICARE, MEDICAID, SELFPAY ==
--- NOTE | 2021-09-09 07:36 | DI.MG.S_ITS ---
BILATERAL DIGITAL SCREENING MAMMOGRAM 3D/2D WITH CAD: 09/09/2021 CLINICAL: Routine screening. Comparison is made to exams dated: 03/31/2020 mammogram, 09/12/2016 mammogram, and 10/20/2017 mammogram - [facility]. The tissue of both breasts is predominantly fatty. Current study was also evaluated with a Computer Aided Detection (CAD) system. No significant masses, calcifications, or other findings are seen in either breast. There has been no significant interval change. IMPRESSION: NEGATIVE There is no mammographic evidence of malignancy. A 1 year screening mammogram is recommended. This exam was interpreted at Station ID: [id number]. NOTE: For mammograms, a report in lay terms will be sent to the patient. Approximately 15% of breast malignancies will not be visualized mammographically. In the management of a palpable breast mass, a negative mammogram must not discourage biopsy of a clinically suspicious lesion. Electronically Signed By: Katelyn molina/emmie:09/09/2021 08:21:44 letter sent: Normal Exam ACR BI-RADS Category 1: Negative [id number]
== END ==
PROVIDERS: PCP Family Medicine; Referring Provider Family Medicine; Visit Provider Family Medicine
DX: Z12.31 Encounter for screening mammogram for malignant neoplasm of breast (principal)
CPT/HCPCS: 77063; 77067

== ENCOUNTER → 2021-10-07 10:05 | Outpatient (CLI) | payer MEDICARE, MEDICAID, SELFPAY ==
[2021-10-07 10:47] LABS: COVID19 -Nasal RAPID Negative (Negative)
== END ==
PROVIDERS: PCP Family Medicine; Visit Provider Surgery
DX: Z01.812 Encounter for preprocedural laboratory examination (principal); Z20.822 Contact with and (suspected) exposure to COVID-19
CPT/HCPCS: 87635; C9803

== ENCOUNTER 2021-10-08 08:35 | Day surgery (SDC) | payer MEDICARE, MEDICAID, SELFPAY ==
--- NOTE | 2021-10-08 | PATH_ITS ---
[facility] Accession Number: [id number] . 01 Material submitted: . rectum - RECTAL POLYP . 02 Diagnosis: Rectal Polyp: Hyperplastic polyp. MRV 10/10/2021 0919 Local . 02 Electronically signed: . Michaela Briscoe MD, Pathologist NPI- [id number] . 01 Gross description: . RECTAL POLYP: Received in formalin is 1 fragment(s) of rausch, soft tissue measuring 0.2 x 0.2 x 0.2 cm submitted entirely in 1 cassette(s) /MARBIN 10/09/20218 Local . 02 Pathologist provided ICD-10: K62.5, K63.5 . 02 CPT . 250527 Specimen Comment: A courtesy copy of this report has been sent to [phone] Performed at: 01 [facility] [address] [id number] MD Arujn Matthews MD Phone: [phone] Performed at: [facility] [id number] [address] [place], [place] [id number] MD Barbara Hirsch MD Phone: [phone]
[2021-10-08] MEDS: LACTATED RINGERS 1,000 ML 200 ML IV (08:51)
[2021-10-08 09:01] VITALS: BP 161/73; PULSE 66; RESP 16; TEMP 36.8; O2SAT 98; BMI 53.7
--- NOTE | 2021-10-08 10:23 | PM.PREOP ---
Pre-operative Note Interval Note History & Physical reviewed/Exam performed by Physician: Yes Changes to H&P: No
[2021-10-08] MEDS: fentaNYL 250 MCG/5 ML INJ 100 MCG IV (10:36)
[2021-10-08] MEDS: MIDAZOLAM 5 MG/5 ML VIAL 4 MG IV (10:36)
--- NOTE | 2021-10-08 10:53 | PM.OP.COLON ---
Operative Date/Time/Diagnoses Date of procedure: 10/08/21 Time of procedure: 10:53 Pre-op diagnosis: Rectal bleeding Post-op diagnosis: same Procedure & Clinicians Study performed: Colonoscopy Same procedure as scheduled: Yes Indications: Rectal bleeding Surgeon: Bernardino Tobin Procedure Notes Procedure in detail: Medications: Conscious sedation using 4mg IV midazolam and 100mcg IV of fentanyl The history and physical was performed/updated and the patient is ASA class is 2. The procedure was discussed in detail with the patient. Potential risks complications including infection, bleeding, missed diagnosis, perforation, need for surgery, and were explained. Their questions were answered and informed consent was obtained. Patient was brought to the procedure room and placed standard monitoring equipment. The patient's vital signs were monitored continuously throughout the entire procedure. Prior to starting time-out was performed. The patient was placed in the left lateral recumbent position. Procedural sedation was administered. Examination began with a thorough inspection of the perianal area there was no evidence of fissures, fistulae, external hemorrhoids or cutaneous malignancy. The colonoscopy scope was then placed into the anal canal and was advanced to the cecum, which was identified by the ileocecal valve, the appendiceal orifice and the confluence of the taenia. The scope was then slowly withdrawn examining colon thoroughly in all directions, irrigating it of any residual stool. FINDINGS 1. Distal Rectum 5 mm polyp removed with biopsy forceps. 2. Diverticulosis 3. Grade 1 internal hemorrhoids too small to band The patient tolerated the procedure well. They will be discharged once criteria are met. The prep was of good/excellent quality. The withdrawl time was 7 minutes. The sedation time was 15 minutes. Specimen(s): other (Rectal polyp) Complications: none Impression: Colonic polyp Post-procedure Recommendations: Colonoscopy in 5 years and High fiber diet Disposition: same day surgery
[2021-10-08 10:57] VITALS: BP 152/85; PULSE 75; RESP 16; TEMP 36.3; O2SAT 98
[2021-10-08 11:02] VITALS: BP 152/82; PULSE 76; RESP 16; O2SAT 100
[2021-10-08 11:06] VITALS: BP 133/73; PULSE 77; RESP 16; O2SAT 99
[2021-10-08 11:09] VITALS: BP 139/77; PULSE 77; RESP 16; TEMP 36.6; O2SAT 100
== END 2021-10-08 11:16 | disposition home or self-care (01) ==
PROVIDERS: PCP Family Medicine; Referring Provider Surgery; Visit Provider Surgery
PROC: 0DJD8ZZ Inspection of Lower Intestinal Tract, Via Natural or Artificial Opening Endoscopic (ICD-10-PCS; CPT 45378; principal; 2021-10-08 10:00)
DX: K62.5 Hemorrhage of anus and rectum (principal); I10 Essential (primary) hypertension; E03.9 Hypothyroidism, unspecified; G47.31 Primary central sleep apnea; E66.01 Morbid (severe) obesity due to excess calories; Z68.43 Body mass index [BMI] 50.0-59.9, adult; K57.30 Diverticulosis of large intestine without perforation or abscess without bleeding; K64.0 First degree hemorrhoids; K62.1 Rectal polyp
CPT/HCPCS: 45380; 99152; J2250; J3010

== ENCOUNTER → 2021-12-20 08:45 | Outpatient (CLI) | payer MEDICARE, MEDICAID, SELFPAY ==
[2021-12-20 10:41] LABS: Alanine Aminotransferase 21 IU/L (<35); Albumin Globulin Ratio 1.8 (1.0-2.8); Alkaline Phosphatase 97 U/L (38-126); Aspartate Aminotransferase 30 IU/L (14-36); Bilirubin Total 0.2 mg/dL (0.2-1.3); Blood Urea Nitrogen 20 mg/dL (7-17); Calcium 8.5 mg/dL (8.4-10.2); Carbon Dioxide 27 mmol/L (22-32); Chloride 105 mmol/L (98-107); Estimated Glomerular Filt Rate > 60 mL/min (>60); Globulin 2.2 g/dL (1.7-4.1); Glucose 104 mg/dL (80-110); HEMOLYSIS < 15 (0-50); Magnesium 2.4 mg/dL (1.6-2.3); Potassium 5.1 mmol/L (3.4-5.1); Sodium 137 mmol/L (137-145); Total Protein 6.2 g/dL (6.3-8.2)
[2021-12-20 11:14] LABS: TSH w/ Reflex to FT4 4.23 uIU/mL (0.47-4.68)
== END ==
PROVIDERS: PCP Family Medicine; Referring Provider Family Medicine; Visit Provider Family Medicine
DX: R06.09 Other forms of dyspnea (principal); R25.2 Cramp and spasm
CPT/HCPCS: 36415; 80053; 83735; 84443

== ENCOUNTER → 2022-01-02 12:36 | Outpatient (CLI) | payer MEDICARE, MEDICAID, SELFPAY ==
[2022-01-02 13:08] LABS: Appearance Urine UA CLEAR; Bilirubin Urine UA NEGATIVE (NEGATIVE); Color Urine UA YELLOW; Glucose Urine UA TRACE g/dL (Negative); Ketones Urine UA NEGATIVE (NEGATIVE); Leukocyte Esterase Urine UA NEGATIVE (NEGATIVE); Nitrite Urine UA NEGATIVE (Negative); Occult Blood Urine UA NEGATIVE (Negative); Protein Urine UA NEGATIVE (Negative); Urobilinogen Urine UA 0.2 E.U./dL (0.2)
[2022-01-02 13:20] LABS: Bacteria Urine None Seen; RBC Urine None Seen (0-5/HPF); WBC Urine None Seen (0-5/HPF)
[2022-01-02 13:21] LABS: Culture Indicated Urine Cult Not Indicated; Urine Comments Microscopic Normal
== END ==
PROVIDERS: PCP Family Medicine; Referring Provider Family Medicine; Visit Provider Family Medicine
DX: N23 Unspecified renal colic (principal)
CPT/HCPCS: 81001

== ENCOUNTER → 2023-01-20 11:52 | Outpatient (CLI) | payer OTHER, MEDICAID, SELFPAY ==
--- NOTE | 2023-01-20 12:06 | DI.RAD.S_ITS ---
PROCEDURE: XR CHEST 2V INDICATIONS: exertional dyspnea TECHNIQUE: 2 views of the chest were acquired. COMPARISON: None. FINDINGS: Surgical changes and devices: None. Lungs and pleura: There is mild diffuse reticulonodular pulmonary opacity. No pleural effusions or pneumothorax. Mediastinum: Mediastinal contours are normal. Heart size is normal. Bones and chest wall: No suspicious bony abnormalities. Soft tissues appear unremarkable. IMPRESSION: Mild edema versus atypical pneumonia. Dictated by: Jeannine Amanda M.D. on 01/20/2023 at 14:56 Approved by: Jeannine Amanda M.D. on 01/20/2023 at 14:56
[2023-01-20 12:33] LABS: Add Manual Diff / Slide Review NO; Basophils Absolute Auto 100 /uL (0-100); Basophils Percent Auto 0.9 % (0-2); Eosinophils Absolute Auto 100 /uL (0-450); Eosinophils Percent Auto 1.2 % (2-4); Hematocrit 28.6 % (36-46); Hemoglobin 8.9 g/dL (12.0-16.0); Lymphocytes Absolute Auto 1800 /uL (1100-4500); Lymphocytes Percent Auto 22.2 % (25-40); Mean Corpuscular HGB Conc 31.3 % (30-36); Mean Corpuscular Hemoglobin 24.3 PG (26-34); Mean Corpuscular Volume 77.5 fL (80-100); Monocytes Absolute Auto 600 /uL (0-900); Monocytes Percent Auto 7.8 % (3-14); Neutrophils Absolute Auto 5500 /uL (1500-7000); Neutrophils Percent Auto 67.9 % (50-75); Platelet Count 332 X10^3/uL (150-400); Red Blood Cell Count 3.68 X10^6/uL (4.0-5.2); Red Cell Distribution Width 18.4 % (11.6-14.8); White Blood Cell Count 8.1 X10^3/uL (4.5-11.0)
[2023-01-20 13:01] LABS: Alanine Aminotransferase 23 IU/L (<35); Albumin 4.3 g/dL (3.5-5.0); Alkaline Phosphatase 113 U/L (38-126); Aspartate Aminotransferase 26 IU/L (14-36); BUN Creatinine Ratio 18.8 (6-22); Bilirubin Total 0.2 mg/dL (0.2-1.3); Blood Urea Nitrogen 13 mg/dL (7-17); Calcium 9.3 mg/dL (8.4-10.2); Carbon Dioxide 25 mmol/L (22-32); Chloride 101 mmol/L (98-107); Cholesterol 162 mg/dL (140-199); Estimated Glomerular Filt Rate > 60 mL/min (>60); Globulin 2.2 g/dL (1.7-4.1); Glucose 109 mg/dL (80-110); HDL Cholesterol 66 mg/dL (40-60); HEMOLYSIS < 15 (0-50); LDL Cholesterol Calculated 78 mg/dL (<100); Potassium 4.7 mmol/L (3.4-5.1); Sodium 135 mmol/L (137-145); Total Protein 6.5 g/dL (6.3-8.2); Triglycerides 91 mg/dL (35-150)
[2023-01-20 13:03] LABS: Creatinine Urine Random 103.5 mg/dL
[2023-01-20 13:07] LABS: Microalbumi Creatinin Ratio Ur 6.7 ug/mg CR (<30); Microalbumin Urine Random 0.7 mg/dL (0-1.6)
[2023-01-20 13:30] LABS: TSH w/ Reflex to FT4 0.95 uIU/mL (0.47-4.68)
[2023-01-20 14:27] LABS: HEMOLYSIS < 15 (0-50); Iron 40 ug/dL (37-170)
[2023-01-20 14:38] LABS: Percent Iron Saturation 8 % (15-50); Total Iron Binding Capacity 521 ug/dL (265-497); Transferrin 419 mg/dL (206-381)
[2023-01-20 15:03] LABS: Ferritin 6 ng/mL (11-264)
== END ==
PROVIDERS: PCP Family Medicine; Referring Provider Family Medicine; Visit Provider Family Medicine
DX: E03.9 Hypothyroidism, unspecified (principal); D64.9 Anemia, unspecified; E66.01 Morbid (severe) obesity due to excess calories; F41.1 Generalized anxiety disorder; I10 Essential (primary) hypertension; R06.09 Other forms of dyspnea; Z68.43 Body mass index [BMI] 50.0-59.9, adult
CPT/HCPCS: 36415; 71046; 80053; 80061; 82043; 82570; 82728; 83540; 83550; 84443; 85025

== ENCOUNTER → 2023-02-12 07:53 | Outpatient (CLI) | payer OTHER, MEDICAID, SELFPAY ==
--- NOTE | 2023-02-12 07:54 | DI.ECHO.S_ITS ---
[place] [facility]---------+ [facility] +---------+ : : [address] : : : : [id number] : : : : Phone: [phone]+ Echocardiogram Report + + :Name: GADIEL DOMINIQUE Study Date: 02/12/2023 Height: 66 in : :[facility] ReadingLocation: Weight: 328 lb : : Gender: Female BSA: 2.5 m2 : :: 1960 Age: 62 yrs BP: 132/71 mmHg: :Reason For Study: PULMONARY EDEMA : :Ordering Physician: ILDEFONSO, : :FERNANDO Performed By: Vi Mehta : :Referring: FERNANDO FREGOSO : + + Interpretation Summary The left ventricle is normal in size. Left ventricular systolic function appears normal without focal wall motion abnormalities. The ejection fraction is estimated to be 60-65%. Diastolic parameters suggest a relaxation abnormality of the left ventricle, consistent with probable normal filling pressures. The right ventricle is normal in size and function. The aortic root is normal size. Pulmonary artery pressures cannot be estimated because of the lack of a measurable TR jet velocity but the IVC suggests a CVP of around 3 mmHg. Procedure: A two-dimensional transthoracic echocardiogram with color flow and Doppler was performed. The study quality was technically adequate. There is no prior echocardiogram noted for this patient. The patient was in sinus rhythm with heart rates between 72-78 bpm during the exam. Left Ventricle: The left ventricle is normal in size. Left ventricular wall thickness is mildly increased. Left ventricular systolic function appears normal without focal wall motion abnormalities. The ejection fraction is estimated to be 60-65%. Diastolic parameters suggest a relaxation abnormality of the left ventricle, consistent with probable normal filling pressures. Right Ventricle: The right ventricle is normal in size and function. Atria: The left atrial size is normal. Right atrial size is normal. There is no Doppler evidence for an interatrial shunt. Mitral Valve: The mitral valve is normal in structure and function. There is no mitral regurgitation noted. Aortic Valve: The aortic valve is trileaflet. The aortic valve opens well. The aortic valve is slightly calcified. There is no aortic valve stenosis. No aortic regurgitation is present. Tricuspid Valve: The tricuspid valve is normal in structure and function. There is trace tricuspid regurgitation. Pulmonary artery pressures cannot be estimated because of the lack of a measurable TR jet velocity but the IVC suggests a CVP of around 3 mmHg. Pulmonic Valve: The pulmonic valve leaflets are thin and pliable; valve motion is normal. There is no pulmonic valvular regurgitation. Great Vessels: The aortic root is normal size. The dimensions of the ascending aorta are normal. The IVC is of normal diameter and collapses greater than 50% with a sniff. This suggests a low right atrial pressure of 3 mm Hg. Pericardium/ Pleura There is no pericardial effusion. There is no pleural effusion. MMode/2D Measurements & Calculations LVIDd: 5.3 cm LVOT diam: 2.0 cm LVIDs: 3.9 cm Ao root diam: 3.5 cm FS: 27.0 % asc Aorta Diam: 3.3 cm IVSd: 1.1 cm Ao Arch Diam (Prox Trans): 3.2 cm LVPWd: 0.99 cm LV thompson. diameter/BSA (cm/m^2): 2.2 LV sys. diameter/BSA (cm/m^2): 1.6 LA A2 area: 22.4 cm2 RA long axis: 4.9 cm LA A4 area: 19.6 cm2 RA area: 14.7 cm2 LA length (vol): 5.2 cm RA vol: 38.0 ml LA vol: 71.4 ml RA : 15.4 ml/m2 LA vol index: 28.9 ml/m2 IVC diam: 1.4 cm RVD1 (basal): 3.9 cm RVD2 (mid): 2.8 cm TAPSE: 2.0 cm Doppler Measurements & Calculations Ao V2 max: 228.7 cm/sec LVOT Max Bubba: 121.2 cm/sec Ao V2 mean: 162.2 cm/sec LV V1 max P.9 mmHg Ao max P.9 mmHg LV V1 VTI: 25.9 cm Ao mean P.8 mmHg RAMÍREZ(I,D): 2.1 cm2 Ao V2 VTI: 40.8 cm RAMÍREZ(V,D): 1.7 cm2 sev ratio: 0.64 RAMÍREZ indexed to BSA (cm^2/m^2): 0.84 MV E max bubba: 78.0 cm/sec PA pr(Accel): 43.0 mmHg MV A max bubba: 85.4 cm/sec MV E/A: 0.91 Med Peak E' Bubba: 5.1 cm/sec E/E' med: 15.4 Lat Peak E' Bubba: 8.9 cm/sec E/E' lat: 8.7 E/e' average: 12.1 MV dec time: 0.24 sec SV(LVOT): 84.9 ml Reading Physician:05:51 PM
== END ==
PROVIDERS: PCP Family Medicine; Referring Provider Family Medicine; Visit Provider Family Medicine
DX: J81.1 Chronic pulmonary edema (principal); R06.09 Other forms of dyspnea; D50.9 Iron deficiency anemia, unspecified; D64.9 Anemia, unspecified
CPT/HCPCS: 93306

== ENCOUNTER → 2023-02-19 07:18 | Outpatient (CLI) | payer OTHER, MEDICAID, SELFPAY ==
[2023-02-19 08:30] LABS: Add Manual Diff / Slide Review NO; Basophils Absolute Auto 100 /uL (0-100); Basophils Percent Auto 0.9 % (0-2); Eosinophils Absolute Auto 100 /uL (0-450); Eosinophils Percent Auto 1.8 % (2-4); Hematocrit 32.7 % (36-46); Hemoglobin 10.4 g/dL (12.0-16.0); Lymphocytes Absolute Auto 1500 /uL (1100-4500); Lymphocytes Percent Auto 19.9 % (25-40); Mean Corpuscular HGB Conc 31.7 % (30-36); Mean Corpuscular Hemoglobin 26.4 PG (26-34); Mean Corpuscular Volume 83.3 fL (80-100); Monocytes Absolute Auto 700 /uL (0-900); Neutrophils Absolute Auto 5100 /uL (1500-7000); Neutrophils Percent Auto 68.4 % (50-75); Platelet Count 299 X10^3/uL (150-400); Red Blood Cell Count 3.93 X10^6/uL (4.0-5.2); Red Cell Distribution Width 23.8 % (11.6-14.8); White Blood Cell Count 7.4 X10^3/uL (4.5-11.0)
[2023-02-19 08:39] LABS: HEMOLYSIS < 15 (0-50); Iron 65 ug/dL (37-170)
[2023-02-19 08:49] LABS: Anisocytosis 2+; Microcytosis 1+
[2023-02-19 08:50] LABS: Percent Iron Saturation 14 % (15-50); Total Iron Binding Capacity 468 ug/dL (265-497); Transferrin 340 mg/dL (206-381)
[2023-02-19 09:14] LABS: Ferritin 11 ng/mL (11-264)
== END ==
PROVIDERS: PCP Family Medicine; Referring Provider Family Medicine; Visit Provider Family Medicine
DX: D50.9 Iron deficiency anemia, unspecified (principal); R06.09 Other forms of dyspnea
CPT/HCPCS: 36415; 82728; 83540; 83550; 85025

== ENCOUNTER → 2023-02-27 11:15 | Outpatient (CLI) | payer OTHER, MEDICAID, SELFPAY ==
[2023-03-02 20:29] LABS: Fecal Immunochemical Test Negative (Negative)
== END ==
PROVIDERS: PCP Family Medicine; Referring Provider Pediatrics; Visit Provider Pediatrics
DX: D50.9 Iron deficiency anemia, unspecified (principal); D64.9 Anemia, unspecified
CPT/HCPCS: 82274

== ENCOUNTER → 2023-04-02 14:00 | Outpatient (CLI) | payer OTHER, MEDICAID, SELFPAY ==
--- NOTE | 2023-04-02 14:02 | DI.NM.S_ITS ---
PROCEDURE: NM RUBY PERF SPECT R&S PHARM Rest and pharmacological stress myocardial perfusion SPECT with gated imaging and ejection fraction RADIOPHARMACEUTICAL: 26.4 mCi Tc-99m tetrafosmin IV at rest and 25.3 mCi Tc-99m tetrafosmin IV at peak effect of pharmacological stress. [id number] was performed. INDICATIONS: exertional dyspnea TECHNIQUE: Radiopharmaceutical was injected at peak stress test, and also at rest. SPECT images were obtained. SPECT myocardial perfusion images were displayed in short axis, horizontal long axis, and vertical long axis views. Gated images were reviewed using R2integrated software. COMPARISON: None. CARDIAC STRESS: A pharmacologic stress test was performed under the supervision of an attending staff, using an infusion of lexiscan 0.4mg IV X1. Hemodynamic data: There is normal blood pressure and heart rate response to pharmacologic stress. Symptoms: The patient denied anginal chest pain. Aminophylline: none EKG: Resting ECG showed mild horizontal ST depressions in the inferior and anterolateral leads. No diagnostic ST changes with lexiscan; no ectopy. FINDINGS: Raw data: There is good myocardial uptake of radiotracer. No significant motion artifacts. Left ventricle function: Gated images demonstrate normal left ventricular wall thickening. No segmental wall motion abnormalities. No transient ischemic dilation; TID is 0.83 (normal less than 1.3). Left ventricle resting end diastolic volume is 158 mL. Left ventricle stress ejection fraction is 73% ; normal range is above 45%. Myocardial perfusion: There is a mildly intense fixed inferior wall defect that improves significantly with prone imaging suggesting diaphragmatic attenuation but small non-transmural infarction can't be definitively excluded. No ischemia. IMPRESSION: Low risk, probably normal pharmaceutical nuclear stress test 1) There is a mildly intense fixed inferior wall defect that improves significantly with prone imaging suggesting diaphragmatic attenuation but small non-transmural infarction can't be definitively excluded. No ischemia. 2) Enlarged left ventricle (resting EDV 158cc) with normal wall motion and normal systolic function (EF 73% post stress). 3) No angina during the study. 4) No ST changes with lexiscan. 1) Dictated by: Francine Espinoza MD on 04/03/2023 at 16:14 Approved by: Francine Espinoza MD on 04/03/2023 at 16:17
== END ==
PROVIDERS: PCP Family Medicine; Referring Provider Family Medicine; Visit Provider Family Medicine
DX: R06.09 Other forms of dyspnea (principal); I10 Essential (primary) hypertension; E66.01 Morbid (severe) obesity due to excess calories; Z68.43 Body mass index [BMI] 50.0-59.9, adult
CPT/HCPCS: 78452; 93017; A9502; J2785

== ENCOUNTER → 2023-04-13 13:21 | Outpatient (CLI) | payer OTHER, MEDICAID, SELFPAY ==
[2023-04-13 13:42] LABS: Add Manual Diff / Slide Review NO; Basophils Absolute Auto 0 /uL (0-100); Basophils Percent Auto 0.7 % (0-2); Eosinophils Absolute Auto 100 /uL (0-450); Eosinophils Percent Auto 1.7 % (2-4); Hematocrit 35.5 % (36-46); Hemoglobin 11.5 g/dL (12.0-16.0); Lymphocytes Absolute Auto 2000 /uL (1100-4500); Lymphocytes Percent Auto 26.8 % (25-40); Mean Corpuscular HGB Conc 32.3 % (30-36); Mean Corpuscular Hemoglobin 28.3 PG (26-34); Mean Corpuscular Volume 87.5 fL (80-100); Monocytes Absolute Auto 600 /uL (0-900); Neutrophils Absolute Auto 4700 /uL (1500-7000); Neutrophils Percent Auto 62.8 % (50-75); Platelet Count 328 X10^3/uL (150-400); Red Blood Cell Count 4.06 X10^6/uL (4.0-5.2); Red Cell Distribution Width 18.1 % (11.6-14.8); White Blood Cell Count 7.4 X10^3/uL (4.5-11.0)
[2023-04-13 13:57] LABS: HEMOLYSIS < 15 (0-50); Iron 80 ug/dL (37-170)
[2023-04-13 14:07] LABS: Percent Iron Saturation 17 % (15-50); Total Iron Binding Capacity 464 ug/dL (265-497); Transferrin 385 mg/dL (206-381)
[2023-04-13 14:33] LABS: Ferritin 9 ng/mL (11-264)
[2023-04-13 14:47] LABS: Vitamin B12 348 pg/mL (239-931)
== END ==
PROVIDERS: PCP Family Medicine; Referring Provider Family Medicine; Visit Provider Family Medicine
DX: D64.9 Anemia, unspecified (principal); D50.9 Iron deficiency anemia, unspecified; R06.09 Other forms of dyspnea
CPT/HCPCS: 36415; 82607; 82728; 83540; 83550; 85025

== ENCOUNTER → 2023-04-20 10:59 | Outpatient (CLI) | payer OTHER, MEDICAID, SELFPAY | PROVIDERS: PCP Family Medicine; Referring Provider Family Medicine; Visit Provider Family Medicine | DX: R06.09 Other forms of dyspnea (principal); Z87.891 Personal history of nicotine dependence; J98.8 Other specified respiratory disorders | CPT/HCPCS: 94060; 94726; 94729 ==

== ENCOUNTER → 2023-06-05 15:35 | Outpatient (CLI) | payer OTHER, MEDICAID, SELFPAY ==
--- NOTE | 2023-06-05 15:36 | DI.CT.S_ITS ---
PROCEDURE: CT CHEST HIGH RESOLUTION INDICATIONS: Multiple nodules on lung TECHNIQUE: Noncontrast 1.0 and 5.0 mm thick contiguous axial sections from the pulmonary apex to the posterior costophrenic angles, with 7 mm thick coronal and sagittal MIP reformats. 1 mm thick dynamic expiratory images acquired through the upper, mid, and lower lungs. 1.0 mm thick axial sections acquired from the laurie to the posterior costophrenic angles in the prone end-inspiration position. For radiation dose reduction, the following was used: automated exposure control, adjustment of mA and/or kV according to patient size. COMPARISON: None. FINDINGS: Image quality: Diagnostic. Lower Neck: No enlarged lymph nodes. Thyroid: No thyroid nodules which require sonographic follow up, per consensus guidelines. Axillae: No enlarged lymph nodes. Chest Wall: Unremarkable. Bones: Unremarkable. Lungs and Pleura: No pneumothorax or pleural effusions. Elevation the right hemidiaphragm. A few solid pulmonary nodules. Largest measures 7 x 5 mm in the left lower lobe (series 6, image 219). Heart: Heart size is normal. No pericardial effusion. Moderate coronary artery calcifications for age. Thoracic Vessels: The aorta and pulmonary arteries demonstrate normal size. Mediastinum and Stacie: No enlarged lymph nodes. Esophagus: No wall thickening. Small hiatal hernia. Upper Abdomen: Visualized upper abdomen solid organs and bowel loops appear normal. IMPRESSION: A few solid pulmonary nodules, largest measuring 7 x 5 mm. No comparison at time of dictation. Recommend follow-up in 6-12 months, per Fleischner society guidelines, unless prior studies have been performed. If these become available, an addendum can be made to this report. Moderate coronary artery calcifications for age. Elevation of the right hemidiaphragm, which may indicate phrenic nerve injury/paralysis. Dictated by: Jacob Quiros M.D. on 06/05/2023 at 17:19 Approved by: Jacob Quiros M.D. on 06/05/2023 at 17:22
== END ==
LOC: CT 15:36
PROVIDERS: PCP Family Medicine; Referring Provider Internal Medicine Critical Care Medicine; Visit Provider Internal Medicine Critical Care Medicine
DX: R91.8 Other nonspecific abnormal finding of lung field (principal); I25.10 Atherosclerotic heart disease of native coronary artery without angina pectoris; K44.9 Diaphragmatic hernia without obstruction or gangrene
CPT/HCPCS: 71250

== ENCOUNTER → 2023-06-23 09:33 | Outpatient (CLI) | payer OTHER, MEDICAID, SELFPAY ==
--- NOTE | 2023-06-23 09:35 | DI.RAD.S_ITS ---
PROCEDURE: FL FLUOROSCOPY >1HR COMPARISON: None. TECHNIQUE: Fluoroscopic cine images were obtained of the diaphragm at rest and with deep inspiration. INDICATIONS: Dyspnea, Sniff test FINDINGS: Right hemidiaphragm is noted to be higher than the left. On deep inspiration, there is normal excursion of the left hemidiaphragm without significant downward motion of the right hemidiaphragm. No paradoxical elevation of the right hemidiaphragm is seen. 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 Normal excursion of the left hemidiaphragm. Approved by: Suraj Cano M.D. on 06/23/2023 at 10:43
== END ==
LOC: RAD 09:34
PROVIDERS: PCP Family Medicine; Referring Provider Internal Medicine Critical Care Medicine; Visit Provider Internal Medicine Critical Care Medicine
DX: R06.00 Dyspnea, unspecified (principal)
CPT/HCPCS: 76000

== ENCOUNTER → 2023-08-30 10:33 | Outpatient (CLI) | payer MEDICARE, MEDICAID, SELFPAY ==
--- NOTE | 2023-08-30 10:34 | DI.RAD.S_ITS ---
PROCEDURE: XR CHEST 2V INDICATIONS: Cough TECHNIQUE: 2 views of the chest were acquired. COMPARISON: [facility], CR, XR CHEST 2V, 01/20/2023, 12:13. FINDINGS: Surgical changes and devices: None. Lungs and pleura: Increased bronchovascular markings in bilateral hilar region are seen with mild bronchial wall thickening. No definite focal infiltrate. No pleural effusions or pneumothorax. Mediastinum: Mediastinal contours are normal. Heart size is normal. Bones and chest wall: No suspicious bony abnormalities. Soft tissues appear unremarkable. IMPRESSION: Suggestion of reactive airway disease such as bronchitis or viral illness versus asthma. No focal infiltrate, pleural effusion or pneumothorax. Dictated by: Lokesh Henson M.D. on 08/30/2023 at 11:52 Approved by: Lokesh Henson M.D. on 08/30/2023 at 11:53
== END ==
PROVIDERS: PCP Family Medicine; Referring Provider Nurse Practitioner Family; Visit Provider Nurse Practitioner Family
DX: R05.9 Cough, unspecified (principal)
CPT/HCPCS: 71046

== ENCOUNTER → 2023-09-16 07:21 | Outpatient (CLI) | payer MEDICARE, MEDICAID, SELFPAY ==
--- NOTE | 2023-09-16 | DI.MG.S_ITS ---
BILATERAL DIGITAL SCREENING MAMMOGRAM 3D/2D WITH CAD: 09/16/2023 CLINICAL: Routine screening. Comparison is made to exams dated: 09/09/2021 mammogram, 03/31/2020 mammogram, and 10/20/2017 mammogram - [facility]. Both breasts are almost entirely fatty (category a/<25% glandular tissue). Current study was also evaluated with a Computer Aided Detection (CAD) system. No significant masses, calcifications, or other findings are seen in either breast. There has been no significant interval change. IMPRESSION: NEGATIVE There is no mammographic evidence of malignancy. A 1 year screening mammogram is recommended. Based on the Tyrer Cuzick model (a risk assessment model) the patient's lifetime risk is 2.6% and her 10 year risk is 1.2%. According to the ACR, ACS, and NCCN guidelines, an annual breast MRI exam along with mammogram is recommended if the patient's lifetime risk is 20% or greater. This exam was interpreted at Station ID: [id number]. NOTE: For mammograms, a report in lay terms will be sent to the patient. Approximately 15% of breast malignancies will not be visualized mammographically. In the management of a palpable breast mass, a negative mammogram must not discourage biopsy of a clinically suspicious lesion. Electronically Signed By: Anai Moore M.D., Ph.D. /emmie:09/17/2023 22:59:35 letter sent: Normal Exam ACR BI-RADS Category 1: Negative 3341F
== END ==
LOC: MAMMO 07:22
PROVIDERS: PCP Family Medicine; Referring Provider Family Medicine; Visit Provider Family Medicine
DX: Z12.31 Encounter for screening mammogram for malignant neoplasm of breast (principal); R92.313 Mammographic fatty tissue density, bilateral breasts
CPT/HCPCS: 77063; 77067

== ENCOUNTER 2023-11-21 09:40 | Emergency (ER) | payer MEDICARE, MEDICAID, SELFPAY ==
[2023-11-21] VITALS (12 sets, daily range): BP systolic 131–153; BP diastolic 58–76; PULSE 68–82; RESP 10–51; TEMP 37.1; O2SAT 93–97; BMI 56.5
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
--- NOTE | 2023-11-21 10:40 | EKG_ITS ---
[facility] [address] [place] [address] Test Date: 2023-11-21 Pat Name: Verena Turcios Department: [facility] Room: Gender: Female Broadcast Producer: ALVARO : [id number] Requested By: Order Number: [id number] Reading MD: Walt Romero Measurements Intervals [place] Rate: 71 P: NV: QRS: -4 QRSD: 112 T: 35 QT: 420 QTc: 456 Interpretive Statements Accelerated Junctional rhythm Minimal voltage criteria for LVH, may be normal variant ( Lenard product ) Electronically Signed On 11-23-2023 16:33:56 PDT by Walt Romero
[2023-11-21 10:56] LABS: Add Manual Diff / Slide Review NO; Basophils Absolute Auto 100 /uL (0-100); Basophils Percent Auto 0.7 % (0-2); Eosinophils Absolute Auto 200 /uL (0-450); Eosinophils Percent Auto 2.3 % (2-4); Hematocrit 34.2 % (36-46); Hemoglobin 11.5 g/dL (12.0-16.0); Lymphocytes Absolute Auto 1300 /uL (1100-4500); Lymphocytes Percent Auto 18.2 % (25-40); Mean Corpuscular HGB Conc 33.8 % (30-36); Mean Corpuscular Hemoglobin 31.7 PG (26-34); Monocytes Absolute Auto 600 /uL (0-900); Monocytes Percent Auto 7.6 % (3-14); Neutrophils Absolute Auto 5200 /uL (1500-7000); Neutrophils Percent Auto 71.2 % (50-75); Platelet Count 274 X10^3/uL (150-400); Red Blood Cell Count 3.64 X10^6/uL (4.0-5.2); Red Cell Distribution Width 14.4 % (11.6-14.8); White Blood Cell Count 7.3 X10^3/uL (4.5-11.0)
[2023-11-21 11:11] LABS: Alanine Aminotransferase 27 IU/L (<35); Albumin 4.2 g/dL (3.5-5.0); Albumin Globulin Ratio 1.9 (1.0-2.8); Alkaline Phosphatase 88 U/L (38-126); Aspartate Aminotransferase 35 IU/L (14-36); BUN Creatinine Ratio 23.9 (6-22); Bilirubin Total 0.5 mg/dL (0.2-1.3); Blood Urea Nitrogen 16 mg/dL (7-17); Carbon Dioxide 29 mmol/L (22-32); Chloride 103 mmol/L (98-107); Creatine Kinase 189 U/L (30-135); Estimated Glomerular Filt Rate > 60 mL/min (>60); Globulin 2.2 g/dL (1.7-4.1); Glucose 127 mg/dL (80-110); HEMOLYSIS < 15 (0-50); Lipase 33 U/L (23-300); Potassium 4.3 mmol/L (3.4-5.1); Sodium 135 mmol/L (137-145); Total Protein 6.4 g/dL (6.3-8.2)
[2023-11-21 11:22] LABS: Troponin I < 0.012 ng/mL (0.01-0.034)
== END 2023-11-21 12:18 | disposition home or self-care (01) ==
PROVIDERS: Emergency Provider Emergency Medicine; PCP Family Medicine
DX: I10 Essential (primary) hypertension (principal); Z87.891 Personal history of nicotine dependence
CPT/HCPCS: 36415; 71045; 80053; 82550; 83690; 84484; 85025; 93005; 99283; 99284

== ENCOUNTER → 2023-12-21 08:56 | Outpatient (CLI) | payer OTHER, MEDICAID, SELFPAY ==
--- NOTE | 2023-12-21 08:57 | DI.RAD.S_ITS ---
PROCEDURE: XR RIBS RT MIN 3V W CXR 1V INDICATIONS: right side/anterior rib pain 7-10 fall TECHNIQUE: 4 views of the ribs were acquired, along with a single view chest. COMPARISON: None. FINDINGS: Surgical changes and devices: None. Bones and chest wall: Probable nondisplaced fractures of the anterior lateral right 8th, 9th, and 10th ribs.. No suspicious bony lesions. Overlying soft tissues appear unremarkable. Lungs and pleura: No pleural effusions or pneumothorax. Lungs appear clear. Mediastinum: Mediastinal contours appear normal. Heart size is normal. IMPRESSION: Probable nondisplaced fractures of the anterior lateral right 8th, 9th, and 10th ribs. No associated pneumothorax. Dictated by: Tejas Antoine M.D. on 12/21/2023 at 10:50 Approved by: Tejas Antoine M.D. on 12/21/2023 at 10:52
== END ==
PROVIDERS: PCP Family Medicine; Referring Provider Student in an Organized Health Care Education/Training Program; Visit Provider Student in an Organized Health Care Education/Training Program
DX: R07.81 Pleurodynia (principal)
CPT/HCPCS: 71101

== ENCOUNTER 2023-12-28 08:30 | Outpatient (RCR) | payer MEDICARE, MEDICAID, SELFPAY | END 2023-12-28 11:04 | LOC: PUL 08:30 | PROVIDERS: PCP Family Medicine; Referring Provider Internal Medicine Critical Care Medicine; Visit Provider Internal Medicine Critical Care Medicine | DX: J98.4 Other disorders of lung (principal) | CPT/HCPCS: G0237; G0238 ==

== ENCOUNTER → 2024-02-19 13:36 | Outpatient (CLI) | payer OTHER, MEDICAID, SELFPAY ==
[2024-02-19 14:21] LABS: Add Manual Diff / Slide Review NO; Basophils Absolute Auto 100 /uL (0-100); Basophils Percent Auto 0.8 % (0-2); Eosinophils Absolute Auto 100 /uL (0-450); Eosinophils Percent Auto 1.3 % (2-4); Hematocrit 33.3 % (36-46); Hemoglobin 10.9 g/dL (12.0-16.0); Lymphocytes Absolute Auto 1600 /uL (1100-4500); Lymphocytes Percent Auto 19.8 % (25-40); Mean Corpuscular HGB Conc 32.7 % (30-36); Mean Corpuscular Volume 88.8 fL (80-100); Monocytes Absolute Auto 800 /uL (0-900); Monocytes Percent Auto 9.1 % (3-14); Neutrophils Absolute Auto 5800 /uL (1500-7000); Platelet Count 312 X10^3/uL (150-400); Red Blood Cell Count 3.75 X10^6/uL (4.0-5.2); Red Cell Distribution Width 15.2 % (11.6-14.8); White Blood Cell Count 8.3 X10^3/uL (4.5-11.0)
[2024-02-19 14:38] LABS: Hemoglobin A1C% w Est Avg Glu 5.5 % (4.0-6.0)
[2024-02-19 15:00] LABS: Alanine Aminotransferase 26 IU/L (<35); Albumin 4.3 g/dL (3.5-5.0); Albumin Globulin Ratio 1.9 (1.0-2.8); Alkaline Phosphatase 110 U/L (38-126); Aspartate Aminotransferase 39 IU/L (14-36); BUN Creatinine Ratio 14.5 (6-22); Bilirubin Total 0.4 mg/dL (0.2-1.3); Blood Urea Nitrogen 12 mg/dL (7-17); Calcium 9.3 mg/dL (8.4-10.2); Carbon Dioxide 26 mmol/L (22-32); Chloride 99 mmol/L (98-107); Cholesterol 152 mg/dL (140-199); Estimated Glomerular Filt Rate > 60 mL/min (>60); Globulin 2.3 g/dL (1.7-4.1); Glucose 100 mg/dL (80-110); HDL Cholesterol 70 mg/dL (40-60); HEMOLYSIS < 15 (0-50); LDL Cholesterol Calculated 64 mg/dL (<100); Potassium 4.5 mmol/L (3.4-5.1); Sodium 133 mmol/L (137-145); Total Protein 6.6 g/dL (6.3-8.2); Triglycerides 88 mg/dL (35-150)
[2024-02-19 15:30] LABS: Thyroid Stimulating Hormone 3.14 uIU/mL (0.47-4.68)
== END ==
PROVIDERS: PCP Family Medicine; Referring Provider Nurse Practitioner Family; Visit Provider Nurse Practitioner Family
DX: I10 Essential (primary) hypertension (principal); E66.9 Obesity, unspecified; Z68.43 Body mass index [BMI] 50.0-59.9, adult
CPT/HCPCS: 36415; 80053; 80061; 83036; 84443; 85025

== ENCOUNTER → 2024-06-13 08:49 | Outpatient (CLI) | payer OTHER, MEDICAID, SELFPAY ==
--- NOTE | 2024-06-13 08:50 | DI.RAD.S_ITS ---
PROCEDURE: XR LUMBAR SPINE 2-3V INDICATIONS: chronic low back pain with right-side radiculopathy TECHNIQUE: 3 views of the lumbar spine were acquired. COMPARISON: [facility], , L-SPINE 2-3 VIEWS, 10/27/2014, 11:21. FINDINGS: Suboptimal evaluation due to body habitus. Cholecystectomy clips are present. Bones: 5 [id number] vertebrae are present. Slight rightward curvature. Moderate to severe disc height loss at all levels, most prominent at L2-3, L3-4. Facet arthrosis of L3 through S1. No vertebral body compression fractures. No suspicious bony lesions. Soft tissues: Overlying bowel gas pattern is normal. No suspicious soft tissue calcifications. IMPRESSION: Moderate to severe, multilevel degenerative disc disease. This has progressed since prior. Dictated by: Jacob Quiros M.D. on 06/13/2024 at 11:16 Approved by: Jacob Quiros M.D. on 06/13/2024 at 11:17
== END ==
PROVIDERS: PCP Family Medicine; Referring Provider Family Medicine; Visit Provider Family Medicine
DX: M51.16 Intervertebral disc disorders with radiculopathy, lumbar region (principal); M54.50 Low back pain, unspecified; G89.29 Other chronic pain; E66.01 Morbid (severe) obesity due to excess calories; Z68.43 Body mass index [BMI] 50.0-59.9, adult; Z90.49 Acquired absence of other specified parts of digestive tract
CPT/HCPCS: 72100

== ENCOUNTER → 2024-06-24 11:49 | Outpatient (CLI) | payer MEDICARE, MEDICAID, SELFPAY ==
--- NOTE | 2024-06-24 11:49 | DI.MRI.S_ITS ---
PROCEDURE: MR LUMBAR SPINE WO CON INDICATIONS: Worsening lumbar spondylosis TECHNIQUE: Noncontrast sagittal T1 spin echo and T2 fast echo, sagittal STIR, and T2 fast spin echo through the lumbar spine. In cases with scoliosis, additional coronal T2 fast spin echo may be performed. COMPARISON: None. FINDINGS: Image quality: Excellent. Alignment and Curvature: Trace retrolisthesis of L2 on L3, L3 on L4. Bone Marrow: Marrow is of normal overall signal. Reactive endplate changes are present most significant L1-2 as well as L4-5 with Schmorl's node at the superior endplate of L5. No acute vertebral body compression fractures. Spinal Cord: Conus medullaris terminates at the L1 level. Visualized cord demonstrates normal signal and size. Paraspinous Soft Tissues: No paravertebral masses. T12-L1: No disc bulge, spinal stenosis or foraminal narrowing.. L1-L2: Mild disc bulge with mild spinal stenosis. Moderate to severe bilateral foraminal narrowing with facet and ligamentum flavum hypertrophy. L2-L3: Mild disc bulge with moderate to severe spinal stenosis. Moderate to severe bilateral foraminal narrowing with facet and ligamentum flavum hypertrophy. Minimal epidural lipomatosis. L3-L4: Mild disc bulge with moderate to severe spinal stenosis. Moderate to severe right and moderate left foraminal narrowing with facet and ligamentum flavum hypertrophy. L4-L5: Mild disc bulge severe spinal stenosis and canal compression. Moderate to severe bilateral foraminal narrowing, right greater than left with compression of the exiting right L4 nerve root. L5-S1: Mild disc bulge without spinal stenosis. Mild right foraminal narrowing with facet and ligamentum flavum hypertrophy. IMPRESSION: Multilevel disc bulges. Multilevel spinal stenosis most severe at L4-5 secondary to disc bulge with contributing effect of facet/ligamentum flavum arthropathy. Overall moderate to severe bilateral foraminal narrowing most severe at L4-5 with compression of the exiting right L4 nerve root secondary to facet arthropathy. Dictated by: Mirela Singh M.D. on 06/26/2024 at 15:57 Approved by: Mirela Singh M.D. on 06/26/2024 at 16:00
== END ==
PROVIDERS: Family Provider Family Medicine; PCP Family Medicine; Referring Provider Family Medicine; Visit Provider Family Medicine
DX: M47.816 Spondylosis without myelopathy or radiculopathy, lumbar region (principal); M51.369 Other intervertebral disc degeneration, lumbar region without mention of lumbar back pain or lower extremity pain; M48.061 Spinal stenosis, lumbar region without neurogenic claudication; M51.379 Other intervertebral disc degeneration, lumbosacral region without mention of lumbar back pain or lower extremity pain; M48.07 Spinal stenosis, lumbosacral region; M46.06 Spinal enthesopathy, lumbar region
CPT/HCPCS: 72148

== ENCOUNTER 2024-07-07 13:28 | Emergency (ER) | payer MEDICARE, MEDICAID, SELFPAY ==
[2024-07-07 13:34] VITALS: BP 123/86; PULSE 74; RESP 20; TEMP 36.2; O2SAT 98; BMI 34.7
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
[2024-07-07] MEDS: DEXAMETHASONE 10 MG/ML VIAL PO (15:04)
[2024-07-07] MEDS: KETOROLAC 30 MG/ML VIAL IM (15:05)
[2024-07-07 15:49] VITALS: BP 121/82; PULSE 70; RESP 18; O2SAT 99
== END 2024-07-07 15:52 | disposition home or self-care (01) ==
PROVIDERS: Emergency Provider Physician Assistant Medical; Family Provider Family Medicine; PCP Family Medicine
DX: M54.41 Lumbago with sciatica, right side (principal); M51.369 Other intervertebral disc degeneration, lumbar region without mention of lumbar back pain or lower extremity pain; M48.061 Spinal stenosis, lumbar region without neurogenic claudication; M47.816 Spondylosis without myelopathy or radiculopathy, lumbar region
CPT/HCPCS: 96372; 99283; 99284; J1100; J1885

== ENCOUNTER 2024-08-22 06:15 | Observation (INO) | payer MEDICARE, MEDICAID, SELFPAY ==
[2024-08-22] VITALS (26 sets, daily range): BP systolic 118–172; BP diastolic 55–80; PULSE 80–104; RESP 16–36; TEMP 36.1–39.5; O2SAT 90–96; BMI 45.8
[2024-08-22] MEDS: ALBUTEROL/IPRATROPIUM 3 ML AMPUL INH ×5 (06:38→22:59)
--- NOTE | 2024-08-22 06:44 | DI.RAD.S_ITS ---
PROCEDURE: XR CHEST 1V INDICATIONS: Shortness of breath TECHNIQUE: One view of the chest was acquired. COMPARISON: [facility], CR, XR CHEST 2V, 01/20/2023, 12:13. [facility], CR, XR CHEST 1V, 11/21/2023, 10:28. [facility], CR, XR CHEST 2V, 08/30/2023, 10:45. FINDINGS: Surgical changes and devices: None. Lungs and pleura: No consolidation. No pleural effusions or pneumothorax. Mediastinum: Mediastinal contours appear normal. Heart size is normal. Bones and chest wall: No suspicious bony lesions. Overlying soft tissues appear unremarkable. IMPRESSION: No acute cardiopulmonary abnormality is seen. Dictated by: Eron Hillman M.D. on 08/22/2024 at 7:20 Approved by: Eron Hillman M.D. on 08/22/2024 at 7:22
[2024-08-22] MEDS: ONDANSETRON 4 MG/2 ML INJ IV (06:50)
[2024-08-22] MEDS: methylPREDNISolone 125 MG/2 ML VIAL IV (06:50)
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
[2024-08-22 07:06] LABS: Add Manual Diff / Slide Review YES; Hematocrit 33.1 % (36-46); Hemoglobin 10.8 g/dL (12.0-16.0); Mean Corpuscular HGB Conc 32.5 % (30-36); Mean Corpuscular Hemoglobin 27.9 PG (26-34); Mean Corpuscular Volume 85.8 fL (80-100); Platelet Count 359 X10^3/uL (150-400); Red Blood Cell Count 3.86 X10^6/uL (4.0-5.2); Red Cell Distribution Width 15.4 % (11.6-14.8)
[2024-08-22 07:11] LABS: Prothrombin Time 11.3 SECONDS (9.4-12.5)
[2024-08-22 07:16] LABS: Alanine Aminotransferase 26 IU/L (<35); Albumin 4.5 g/dL (3.5-5.0); Albumin Globulin Ratio 1.8 (1.0-2.8); Alkaline Phosphatase 116 U/L (38-126); Aspartate Aminotransferase 38 IU/L (14-36); BUN Creatinine Ratio 22.1 (6-22); Bilirubin Total 0.6 mg/dL (0.2-1.3); Blood Urea Nitrogen 17 mg/dL (7-17); Calcium 9.3 mg/dL (8.4-10.2); Carbon Dioxide 22 mmol/L (22-32); Chloride 95 mmol/L (98-107); Estimated Glomerular Filt Rate > 60 mL/min (>60); Globulin 2.5 g/dL (1.7-4.1); Glucose 142 mg/dL (80-110); HEMOLYSIS 34 (0-50); Lactate (Lactic Acid) 1.8 mmol/L (0.7-2.1); Potassium 5.3 mmol/L (3.4-5.1); Sodium 129 mmol/L (137-145)
[2024-08-22 07:20] LABS: Neutrophils Absolute Manual 18900 /uL (3000-5900); RBC Morphology Normal Morphology; Total Cells Counted 100
--- NOTE | 2024-08-22 07:27 | EKG_ITS ---
[facility] [address] [place] [address] Test Date: 2024-08-22 Pat Name: Verena Turcios Department: Room: Gender: Female [employer] Lead: ANGELICA : 1960 Requested By: Order Number: [id number] Reading MD: Tomer Maravilla MD Measurements Intervals [place] Rate: 103 P: 59 DC: 142 QRS: -9 QRSD: 112 T: 101 QT: 334 QTc: 437 Interpretive Statements Sinus tachycardia Possible Left atrial enlargement Minimal voltage criteria for LVH, may be normal variant ( [place] product ) ST & T wave abnormality, consider lateral ischemia Electronically Signed On 08-22-2024 7:44:42 PDT by Tomer Maravilla MD
[2024-08-22 07:28] LABS: NT-proBNP (BNP-Adult 18+) 66 pg/mL (<125); Troponin I < 0.012 ng/mL (0.01-0.034)
[2024-08-22] MEDS: ACETAMINOPHEN 325 MG TABLET 975 MG PO (07:44)
[2024-08-22] MEDS: SODIUM CHLORIDE 0.9% 1,000 ML 1000 ML IV (07:45)
[2024-08-22] MEDS: cefTRIAXone 2,000 MG in SODIUM CHLORIDE 0.9% 100 ML 200 MG IV (07:46)
[2024-08-22 07:47] LABS: COVID-19 CEPHEID 4-PLEX PCR Negative (Negative); Influenza A - CEPHEID Flu A NEGATIVE (NEGATIVE); Influenza B - CEPHEID Flu B NEGATIVE (NEGATIVE); Respiratory Syncytial Virus Negative (Negative)
[2024-08-22 07:47] LABS: Procalcitonin 0.081 ng/mL (<0.5)
[2024-08-22] MEDS: ALBUTEROL 2.5 MG/3 ML NEB (ADULT) 5 MG INH (07:53)
[2024-08-22] MEDS: AZITHROMYCIN 500 MG in DEXTROSE 5% IN WATER 250 ML 250 MG IV (08:27)
--- NOTE | 2024-08-22 08:48 | PC.NURSE ---
Pt resting on stretcher on 2L NC, ABX infused. rec'ing remaining IVFs. temp improved to 101.1 orally s/p tylenol. trialing off O2 at this time.
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
[2024-08-22] MEDS: predniSONE 20 MG TABLET 40 MG PO (11:53)
[2024-08-22] MEDS: SUMAtriptan 25 MG TABLET PO ×2 (15:50→18:04)
--- NOTE | 2024-08-22 15:52 | PC.NURSE ---
Patient admitted to room 220 approx 11am today, oriented to room and call light. Patient oriented to room and call light. States she is starting to feel better since arriving. 2L NC in place. Assisted patient to change into gown, declined brief but given a new pad for her stress incontinence. Bed alarm activated, call light within reach.
[2024-08-22] MEDS: TRAMADOL 50 MG TABLET PO (20:44)
[2024-08-22] MEDS: GABAPENTIN 600 MG TABLET PO (20:45)
[2024-08-22] MEDS: lamoTRIgine 100 MG TABLET 200 MG PO (20:45)
[2024-08-22] MEDS: SODIUM CHLORIDE 0.9% FLUSH 10 ML IV (20:46)
[2024-08-23] VITALS (10 sets, daily range): BP systolic 99–128; BP diastolic 57–76; PULSE 78–86; RESP 12–20; TEMP 36.3–37; O2SAT 90–97
[2024-08-23] MEDS: ALBUTEROL/IPRATROPIUM 3 ML AMPUL INH ×4 (07:23→17:35)
[2024-08-23] MEDS: LEVOTHYROXINE 50 MCG TABLET 150 MCG PO (09:22)
[2024-08-23] MEDS: cloNIDine 0.1 MG TABLET PO (09:22)
[2024-08-23] MEDS: AZITHROMYCIN 250 MG TABLET 500 MG PO (09:22)
[2024-08-23] MEDS: VENLAFAXINE ER 75 MG CAP 225 MG PO (09:23)
[2024-08-23] MEDS: ASPIRIN EC 81 MG TABLET PO (09:23)
[2024-08-23] MEDS: predniSONE 20 MG TABLET 40 MG PO ×2 (09:23→16:32)
[2024-08-23] MEDS: FERROUS SULFATE 325 MG TABLET PO (09:23)
[2024-08-23] MEDS: ARIPiprazole 10 MG TABLET 5 MG PO (09:23)
[2024-08-23] MEDS: lamoTRIgine 100 MG TABLET 400 MG PO ×2 (09:23→20:46)
[2024-08-23] MEDS: lisinopriL 20 MG TABLET 40 MG PO (09:24)
[2024-08-23] MEDS: SODIUM CHLORIDE 0.9% FLUSH 10 ML IV ×2 (09:26→20:47)
[2024-08-23] MEDS: NIFEdipine 30 MG TAB ER PO (09:34)
[2024-08-23] MEDS: cefTRIAXone 2,000 MG in SODIUM CHLORIDE 0.9% 100 ML 200 MG IV (10:06)
[2024-08-23] MEDS: ENOXAPARIN 40 MG/0.4 ML SYRINGE SUBCUT ×2 (10:45→20:46)
[2024-08-23 12:27] LABS: Hematocrit 29.5 % (36-46); Hemoglobin 9.4 g/dL (12.0-16.0); Mean Corpuscular HGB Conc 31.7 % (30-36); Mean Corpuscular Hemoglobin 27.9 PG (26-34); Platelet Count 346 X10^3/uL (150-400); Red Blood Cell Count 3.35 X10^6/uL (4.0-5.2); Red Cell Distribution Width 15.2 % (11.6-14.8); White Blood Cell Count 17.8 X10^3/uL (4.5-11.0)
[2024-08-23 12:43] LABS: BUN Creatinine Ratio 27.9 (6-22); Blood Urea Nitrogen 17 mg/dL (7-17); Calcium 9.2 mg/dL (8.4-10.2); Carbon Dioxide 28 mmol/L (22-32); Chloride 97 mmol/L (98-107); Estimated Glomerular Filt Rate > 60 mL/min (>60); Glucose 109 mg/dL (80-110); HEMOLYSIS < 15 (0-50); Potassium 4.8 mmol/L (3.4-5.1); Sodium 131 mmol/L (137-145)
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
--- NOTE | 2024-08-23 13:26 | CM.DANOTE ---
DCP Assessment Note pt is a 63yo F admitted with COPD exacerbation/pneumonia. PCP Vladimir Flores [facility] advantage and Medicaid PLAYER PIANO TECHNICIAN reviewed EMR. per provider in morning rounds, may dc either later today vs tomorrow. per chart, pt on 2ltrs O2 at the moment. CM team recieved fax from [facility] CM team identifying pt as a special needs patient with accompaying checklist to review with pt, requested it be completed with pt and faxed back to them at [phone]. PLAY[employer] TECHNICIAN met with pt in room and introduced self and role. pt lives with family in [place], indep no DME for mobility, uses BiPap at home. sister plans to transport pt home. pt eager to dc home. no O2 at baseline. PLAY[employer] TECHNICIAN reviewed what able to with pt on checklist, gave blank copy of Advanced directives for pt to review. some needs to be reviewed with RN/provider. pt denies other CM/DCP needs or questions at this time. PLAY[employer] TECHNICIAN updated RN/provider on checklist in pt's room. Need to update TCM at [place]. P: home later today vs tomorrow with famliy support and OP f/u likely recommended. CM team to fax return checklsit to [facility] at [place]. will continue to follow in case any DCP needs arise. MERLE Perla Discharge Planning/Care Management CM Discharge Assessment Start: 08/23/24 13:24 Freq: Status: Active Protocol: Document 08/23/24 13:24 SL (Rec: 08/23/24 13:26 SL Desktop) Discharge Planning Assessment Assigned Drop Wire Aliner MERLE Seals DPOA/Assigned Designee Name sister Abdul Contact Information [phone] Advance Directives? No History Provided By Patient Prior Living Arrangements House Household Members family Independent with ADL's Yes Is patient alert and oriented? Yes DME Already Rented / Owned Other Comment BiPap at home Discharge Plan Home Transportation Arrangement sister in [place] Referrals Initiated None needed Whiteboard Updated in Patient Room with Yes name and ext. # of Drop Wire Aliner Review Status In Process Please Provide Date Initial DC 08/23/24 Assessment Was Performed Next Review Type Continued Stay Review
[2024-08-23] MEDS: TRAMADOL 50 MG TABLET PO (13:27)
[2024-08-23 20:40] LABS: Acinetobacter calcoa-baumannii Not Detected (Not Detect); Bacteroides fragilis Not Detected (Not Detect); Candida albicans Not Detected (Not Detect); Candida auris Not Detected (Not Detect); Candida glabrata Not Detected (Not Detect); Candida krusei Not Detected (Not Detect); Candida parapsilosis Not Detected (Not Detect); Candida tropicalis Not Detected (Not Detect); Cryptococcus neoformans/gatti Not Detected (Not Detect); Enterobacter cloacae complex Not Detected (Not Detect); Enterobacterales Not Detected (Not Detect); Enterococcus faecalis Not Detected (Not Detect); Enterococcus faecium Not Detected (Not Detect); Haemophilus influenzae Not Detected (Not Detect); Klebsiella aerogenes Not Detected (Not Detect); Listeria monocytogenes Not Detected (Not Detect); Neisseria meningitidis Not Detected (Not Detect); Proteus species Not Detected (Not Detect); Pseudomonas aeruginosa Not Detected (Not Detect); Salmonella species Not Detected (Not Detect); Serratia marcescens Not Detected (Not Detect); Staphylococcus epidermidis Not Detected (Not Detect); Staphylococcus lugdunensis Not Detected (Not Detect); Staphylococcus species Not Detected (Not Detect); Stenotrophomonas maltophilia Not Detected (Not Detect); Streptococcus agalactiae (Gr B Not Detected (Not Detect); Streptococcus pneumonia Detected (Not Detect); Streptococcus pyogenes (Gr A) Not Detected (Not Detect); Streptococcus species Detected (Not Detect)
[2024-08-23] MEDS: PRAMIPEXOLE 0.25 MG TABLET 0.125 MG PO (20:45)
[2024-08-23] MEDS: GABAPENTIN 600 MG TABLET PO (20:46)
[2024-08-24 00:21] VITALS: PULSE 78; O2SAT 96
[2024-08-24] MEDS: guaiFENesin ER 600 MG TAB PO (05:05)
[2024-08-24] MEDS: LEVOTHYROXINE 50 MCG TABLET 150 MCG PO (05:15)
[2024-08-24 06:28] VITALS: O2SAT 92
[2024-08-24] MEDS: ALBUTEROL/IPRATROPIUM 3 ML AMPUL INH ×2 (07:26→10:56)
[2024-08-24 07:29] VITALS: O2SAT 97
[2024-08-24 08:00] VITALS: BP 121/74; PULSE 79; RESP 18; TEMP 36.2; O2SAT 92
[2024-08-24] MEDS: SUMAtriptan 25 MG TABLET 50 MG PO (08:32)
[2024-08-24] MEDS: ENOXAPARIN 40 MG/0.4 ML SYRINGE SUBCUT (08:32)
[2024-08-24] MEDS: ASPIRIN EC 81 MG TABLET PO (08:33)
[2024-08-24] MEDS: predniSONE 20 MG TABLET 40 MG PO (08:33)
[2024-08-24] MEDS: VENLAFAXINE ER 75 MG CAP 225 MG PO (08:33)
[2024-08-24] MEDS: FERROUS SULFATE 325 MG TABLET PO (08:33)
[2024-08-24] MEDS: lamoTRIgine 100 MG TABLET 400 MG PO (08:33)
[2024-08-24 08:34] VITALS: BP 121/74; PULSE 79
[2024-08-24] MEDS: ARIPiprazole 10 MG TABLET 5 MG PO (08:34)
[2024-08-24] MEDS: NIFEdipine 30 MG TAB ER PO (08:34)
[2024-08-24] MEDS: AZITHROMYCIN 250 MG TABLET 500 MG PO (08:34)
[2024-08-24] MEDS: lisinopriL 20 MG TABLET 40 MG PO (08:34)
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
[2024-08-24 10:56] VITALS: O2SAT 96
--- NOTE | 2024-08-24 11:37 | PC.NURSE ---
Pt is dressed and ready for discharge home with Sister. IV has been removed. Went over d/c instructions with Pt-discussed d/c meds, time of last dose, reviewed stroke education, Pt already uses her Pt. Portal., encouraged fluid intake to prevent constipation or dehydration, pacing herself to prevent shortness of breath, reminded Pt to take her full course of abx as scheduled and to follow up as recommended. Pt denies further questions and will be taken out to POV when Sister arrives and Pt's belongings will go with Pt.
--- NOTE | 2024-08-24 11:40 | CM.DPNOTE ---
DCP note TUBING TESTER reviewed EMR per provider, cleared to dc home today. TUBING TESTER met with pt in room. pt eager to go home, cares for 90yo mom at home, sister caring for pt's mom at this time. TUBING TESTER reviewed final [facility] TCM checklist, pt signed and TUBING TESTER faxed back to [facility] TCM team. pt denies any DCP needs/questions, sister will pick pt up and transport her home. TUBING TESTER updated TCM team. P: dc today with family support and OP f/u recommended. no identified barriers to safe dc home at this time. CM team will continue to follow as needed MERLE Perla
== END 2024-08-24 12:28 | disposition home or self-care (01) ==
LOC: ED 07:00 → AC 09:01
PROVIDERS: Emergency Medicine; Admitting Provider Hospitalist; Emergency Provider Emergency Medicine; Family Provider Family Medicine; PCP Family Medicine; Referring Provider Emergency Medicine; Visit Provider Hospitalist
DX: J96.01 Acute respiratory failure with hypoxia (principal); E03.9 Hypothyroidism, unspecified; F31.9 Bipolar disorder, unspecified; I10 Essential (primary) hypertension; R07.81 Pleurodynia; E66.9 Obesity, unspecified; E87.5 Hyperkalemia; D72.829 Elevated white blood cell count, unspecified; Z87.891 Personal history of nicotine dependence; Z11.52 Encounter for screening for COVID-19
CPT/HCPCS: 0241U; 36415; 71045; 80048; 80053; 83605; 83880; 84145; 84484; 85007; 85025; 85027; 85610; 87040; 87154; 87186; 93005; 93010; 94640; 94660; 94760; 94762; 96365; 96367; 96372; 96375; 99284; G0378; J0696; J1650; J2405; J2919; J7613

== ENCOUNTER → 2024-10-10 11:52 | Outpatient (CLI) | payer MEDICARE, MEDICAID, SELFPAY ==
[2024-08-22 09:19] VITALS: BMI 45.8
--- NOTE | 2024-10-10 11:54 | DI.RAD.S_ITS ---
PROCEDURE: XR CHEST 2V INDICATIONS: pneumonia TECHNIQUE: 2 views of the chest were acquired. COMPARISON: [facility], CR, XR CHEST 1V, 08/22/2024, 6:44. FINDINGS: Surgical changes and devices: None. Lungs and pleura: Lungs are clear. Moderate right hemidiaphragmatic elevation. No pleural effusions or pneumothorax. Mediastinum: Mediastinal contours are normal. Heart size is normal. Bones and chest wall: No suspicious bony abnormalities. Soft tissues appear unremarkable. IMPRESSION: No acute cardiopulmonary abnormality is seen. Dictated by: Ambrose Mendoza M.D. on 10/10/2024 at 23:55 Approved by: Ambrose Mendoza M.D. on 10/10/2024 at 23:56
--- NOTE | 2024-10-10 11:54 | DI.ECHO.S_ITS ---
[facility] +---------+ [facility] : : [address] : : [place] : : [id number] : : Phone: [phone] Echocardiogram Report + + :Name: GADIEL DOMINIQUE Study Date: 10/10/2024 Height: 66 in : :Hospital ReadingLocation: Weight: 290 lb : : Gender: Female BSA: 2.3 m2 : :: 1960 Age: 64 yrs BP: 135/80 mmHg: :Reason For Study: CAD : :Ordering Physician: ILDEFONSO, : :FERNANDO Performed By: John Ryder : :Referring: FERNANDO FREGOSO : + + Interpretation Summary Borderline concentric left ventricular hypertrophy with ejection fraction 60- 65%. Diastolic parameters suggest a relaxation abnormality of the left ventricle, consistent with probable normal filling pressures. No significant valvular abnormality. Comparison is made with the echocardiogram of 02/12/2023, no significant change. Procedure: A two-dimensional transthoracic echocardiogram with color flow and Doppler was performed. Comparison is made with the echocardiogram of 02/12/2023. The study quality was technically adequate. The patient was in normal sinus rhythm during the exam. Left Ventricle: The left ventricle is normal in size. There is borderline concentric left ventricular hypertrophy. The ejection fraction is estimated to be 60-65%. There are no focal wall motion abnormalities. Diastolic parameters suggest a relaxation abnormality of the left ventricle, consistent with probable normal filling pressures. Right Ventricle: The right ventricle is normal in size and function. Atria: The left atrial size is normal. The right atrium is normal in size. There is no Doppler evidence for an interatrial shunt. Mitral Valve: The mitral valve leaflets appear mildly thickened, but open well. The mitral valve leaflets appear to open well. There is no mitral valve stenosis. There is trace mitral regurgitation. Aortic Valve: The aortic valve is trileaflet. The aortic valve opens well. No doppler evidence of aortic stenosis. No aortic regurgitation is present. Tricuspid Valve: The tricuspid valve leaflets are thin and pliable. There is trace tricuspid regurgitation. Pulmonary artery pressures cannot be estimated because of the lack of a measurable TR jet velocity but the IVC suggests a CVP of around 3 mmHg. Pulmonic Valve: The pulmonic valve is not well seen, but is grossly normal. There is a trace or physiologic amount of pulmonic regurgitation. Great Vessels: The aortic root is normal size. The ascending aorta is normal in size. The aortic arch is normal in size. The IVC is of normal diameter and collapses greater than 50% with a sniff. This suggests a low right atrial pressure of 3 mm Hg. Pericardium/ Pleura There is no pericardial effusion. MMode/2D Measurements & Calculations LVIDd: 5.0 cm LVOT diam: 2.0 cm LVIDs: 3.1 cm Ao root diam: 3.4 cm FS: 38.1 % asc Aorta Diam: 3.5 cm IVSd: 1.0 cm Ao Arch Diam (Prox Trans): 3.1 cm LVPWd: 1.0 cm LV thompson. diameter/BSA (cm/m^2): 2.1 LV sys. diameter/BSA (cm/m^2): 1.3 LA A2 area: 20.8 cm2 RA long axis: 4.6 cm LA A4 area: 20.2 cm2 RA area: 11.4 cm2 LA length (vol): 5.6 cm RA vol: 24.1 ml LA vol: 63.0 ml RA : 10.3 ml/m2 LA vol index: 26.9 ml/m2 RVD1 (basal): 2.5 cm RVD2 (mid): 1.9 cm TAPSE: 2.3 cm Doppler Measurements & Calculations Ao V2 max: 186.5 cm/sec LVOT Max Bubba: 132.9 cm/sec Ao V2 mean: 116.5 cm/sec LV V1 max P.1 mmHg Ao max P.9 mmHg LV V1 VTI: 25.6 cm Ao mean P.7 mmHg RAMÍREZ(I,D): 2.4 cm2 Ao V2 VTI: 32.3 cm RAMÍREZ(V,D): 2.2 cm2 sev ratio: 0.79 RAMÍREZ indexed to BSA (cm^2/m^2): 1.0 MV E max bubba: 76.6 cm/sec SV(LVOT): 78.5 ml MV A max bubba: 76.0 cm/sec MV E/A: 1.0 Med Peak E' Bubba: 5.5 cm/sec E/E' med: 13.8 Lat Peak E' Bubba: 6.6 cm/sec E/E' lat: 11.7 E/e' average: 12.8 MV dec time: 0.22 sec Electronically signed by: Lissette Silva on Reading Physician:10/10/2024 04:40 PM
== END ==
LOC: ECHO 11:53
PROVIDERS: Family Provider Family Medicine; PCP Family Medicine; Referring Provider Family Medicine; Visit Provider Family Medicine
DX: R01.1 Cardiac murmur, unspecified (principal); J44.9 Chronic obstructive pulmonary disease, unspecified; E66.01 Morbid (severe) obesity due to excess calories; D64.9 Anemia, unspecified; G89.29 Other chronic pain; M54.41 Lumbago with sciatica, right side; M54.42 Lumbago with sciatica, left side; J18.9 Pneumonia, unspecified organism; D50.9 Iron deficiency anemia, unspecified; Z68.43 Body mass index [BMI] 50.0-59.9, adult
CPT/HCPCS: 71046; 93306

== ENCOUNTER 2024-11-10 12:02 | Day surgery (SDC) | payer MEDICARE, MEDICAID, SELFPAY ==
[2024-08-22 09:19] VITALS: BMI 45.8
--- NOTE | 2024-11-10 | PATH_ITS ---
[facility] Accession Number: [id number] No. of containers..03 Tissue . 01 Material submitted: . PART A: esophagus, E-G Junction - GE JUNCTION PART B: colon - TRANSVERSE POLYP PART C: colon - CECUM . 01 Diagnosis: A. GASTROESOPHAGEAL JUNCTION, BIOPSY: Squamocolumnar junctional mucosa with specialized intestinal metaplasia; please see comment. Negative for dysplasia or malignancy. . B. TRANSVERSE COLON POLYP: Tubular adenoma. . C. CECUM, BIOPSY: Colonic mucosa with no diagnostic abnormality. Negative for active, chronic, and microscopic colitis. Negative for dysplasia and malignancy. . [facility] 11/16/2024 1229 Local . 01 Comment: A. 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 . 01 Electronically signed: . Jordan Morales MD, PhD, Pathologist NPI- [id number] . 01 Gross description: . Part A: GE JUNCTION: Received in formalin are 4 fragment(s) of rausch, soft tissue measuring 0.1 x 0.1 x 0.1 cm to 0.3 x 0.2 x 0.2 cm submitted entirely in 1 cassette(s) Part B: TRANSVERSE POLYP: Received in formalin are 2 fragment(s) of rausch, soft tissue measuring 0.4 x 0.4 x 0.1 cm to 0.8 x 0.4 x 0.3 cm submitted entirely in 1 cassette(s) Part C: CECUM: Received in formalin are 2 fragment(s) of rausch, soft tissue measuring 0.3 x 0.3 x 0.2 cm to 0.5 x 0.3 x 0.2 cm submitted entirely in 1 cassette(s) /MARBIN 11/12/2024 0039 Local . 01 Pathologist provided ICD-10: K22.70, D12.3, D64.9 . 01 CPT . 024840, 981791, 968324 Specimen Comment: A courtesy copy of this report has been sent to [phone] Performed at: [address] [address], [place], [place] [id number] MD Arjun Matthews MD Phone: [phone]
[2024-11-10 14:34] VITALS: BP 109/68; PULSE 79; RESP 22; TEMP 36.2; O2SAT 100
[2024-11-10] MEDS: LACTATED RINGERS 1,000 ML 42 ML IV (14:38)
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
[2024-11-10 15:29] VITALS: BP 104/63; PULSE 67; RESP 12; TEMP 36.7; O2SAT 95
--- NOTE | 2024-11-10 15:32 | PM.OP.EC ---
Operative Date/Time/Diagnoses Date of procedure: 11/10/24 Time of procedure: 15:32 Pre-op diagnosis: Anemia Post-op diagnosis: same Procedure & Clinicians Study performed: EGD and colonoscopy Same procedure as scheduled: Yes Surgeon: Karl Griffin Procedure Notes Procedure in detail: Surgeon: Karl Griffin MD Anesthesia: Jefe Antonio CRNA Procedure in detail: A timeout was performed. A bite blocked was placed and monitors were attached to the patient. The patient was positioned in the left lateral decubitus position. Sedation was administered. Once the patient was sedated the endoscope was inserted through the bite block and passed through the esophagus and gastric pouch. There was evidence of a gastric bypass with a gastrojejunostomy. The endoscope was then inserted down the jejunal limb for several cm. No abnormalities were found. We then withdrew the scope into the gastric pouch and found no abnormalities. The endoscope was withdrawn into the esophagus. There were some salmon-colored patches of mucosa in the distal esophagus extending from the GE junction. Biopsies were taken with forceps. EGD findings: [place]-colored patches of mucosa extending proximally from GE junction Next we repositioned the patient for a colonoscopy. A digital rectal exam was performed and was normal. The colonoscope was inserted and advanced to the cecum. The appendiceal orifice was identified and photographed. The scope was slowly withdrawn over greater than 6 minutes. There was some edematous mucosa in the cecum and biopsies were taken with foceps. There was a small polyp in the transverse colon removed with foceps. The scope was retroflexed in the rectum and internal hemorrhoids were noted. Colonoscopy findings: Edematous mucosa in the cecum, small transverse polyp and internal hemorrhoids Total procedural EBL: 8 mL Scope withdrawal time: 7 minutes Sedation minutes: 30 minutes Post-procedure Disposition: PACU
[2024-11-10 15:34] VITALS: BP 110/92; PULSE 72; RESP 16; O2SAT 92
[2024-11-10 15:38] VITALS: BP 85/59; PULSE 67; RESP 12; TEMP 36.2; O2SAT 94
== END 2024-11-10 15:49 | disposition home or self-care (01) ==
PROVIDERS: Family Provider Family Medicine; PCP Family Medicine; Referring Provider Surgery; Visit Provider Surgery
PROC: 0DJ08ZZ Inspection of Upper Intestinal Tract, Via Natural or Artificial Opening Endoscopic (ICD-10-PCS; CPT 45380; principal; 2024-11-10 14:45)
PROC: 0DJD8ZZ Inspection of Lower Intestinal Tract, Via Natural or Artificial Opening Endoscopic (ICD-10-PCS; CPT 45378; 2024-11-10 14:45)
DX: D64.9 Anemia, unspecified (principal); K64.8 Other hemorrhoids; D12.3 Benign neoplasm of transverse colon; K22.70 Barrett's esophagus without dysplasia
CPT/HCPCS: 45380; 43239; J2704; J3010

== ENCOUNTER → 2024-11-11 09:21 | Outpatient (CLI) | payer MEDICARE, MEDICAID, SELFPAY ==
[2024-08-22 09:19] VITALS: BMI 45.8
[2024-11-11 10:03] LABS: Add Manual Diff / Slide Review NO; Basophils Absolute Auto 0 /uL (0-100); Basophils Percent Auto 0.6 % (0-2); Eosinophils Absolute Auto 100 /uL (0-450); Eosinophils Percent Auto 1.4 % (2-4); Hematocrit 35.8 % (36-46); Hemoglobin 11.7 g/dL (12.0-16.0); Lymphocytes Absolute Auto 1600 /uL (1100-4500); Lymphocytes Percent Auto 22.9 % (25-40); Mean Corpuscular HGB Conc 32.8 % (30-36); Mean Corpuscular Hemoglobin 29.5 PG (26-34); Monocytes Absolute Auto 500 /uL (0-900); Monocytes Percent Auto 7.9 % (3-14); Neutrophils Absolute Auto 4600 /uL (1500-7000); Neutrophils Percent Auto 67.2 % (50-75); Platelet Count 269 X10^3/uL (150-400); Red Blood Cell Count 3.98 X10^6/uL (4.0-5.2); Red Cell Distribution Width 17.7 % (11.6-14.8); White Blood Cell Count 6.9 X10^3/uL (4.5-11.0)
[2024-11-11 10:19] LABS: Hemoglobin A1C% w Est Avg Glu 5.1 % (4.0-6.0)
[2024-11-11 10:31] LABS: Alanine Aminotransferase 17 IU/L (<35); Albumin 4.1 g/dL (3.5-5.0); Albumin Globulin Ratio 2.3 (1.0-2.8); Alkaline Phosphatase 121 U/L (38-126); Aspartate Aminotransferase 22 IU/L (14-36); BUN Creatinine Ratio 18.7 (6-22); Bilirubin Total 0.3 mg/dL (0.2-1.3); Blood Urea Nitrogen 14 mg/dL (7-17); Calcium 9.3 mg/dL (8.4-10.2); Carbon Dioxide 26 mmol/L (22-32); Chloride 103 mmol/L (98-107); Estimated Glomerular Filt Rate > 60 mL/min (>60); Globulin 1.8 g/dL (1.7-4.1); Glucose 93 mg/dL (70-99); HEMOLYSIS < 15 (0-50); Iron 49 ug/dL (37-170); Potassium 4.5 mmol/L (3.4-5.1); Sodium 136 mmol/L (137-145); Total Protein 5.9 g/dL (6.3-8.2)
[2024-11-11 10:41] LABS: Percent Iron Saturation 13 % (15-50); Total Iron Binding Capacity 386 ug/dL (265-497); Transferrin 313 mg/dL (206-381)
[2024-11-11 11:09] LABS: Ferritin 11 ng/mL (11-264)
[2024-11-14 11:36] LABS: Lamotrigine Lamictal 10.2 ug/mL (2.0-20.0)
== END ==
PROVIDERS: Psychiatry & Neurology Psychiatry; Family Provider Family Medicine; PCP Family Medicine; Referring Provider Family Medicine; Visit Provider Family Medicine
DX: M54.31 Sciatica, right side (principal); D50.9 Iron deficiency anemia, unspecified; D64.9 Anemia, unspecified; J44.9 Chronic obstructive pulmonary disease, unspecified; J18.9 Pneumonia, unspecified organism; M54.50 Low back pain, unspecified; G89.29 Other chronic pain; E66.01 Morbid (severe) obesity due to excess calories; Z68.43 Body mass index [BMI] 50.0-59.9, adult; Z79.899 Other long term (current) drug therapy
CPT/HCPCS: 36415; 80053; 80175; 82728; 83036; 83540; 83550; 85025

== ENCOUNTER 2024-11-13 11:46 | Emergency (ER) | payer MEDICARE, MEDICAID, SELFPAY ==
[2024-08-22 09:19] VITALS: BMI 45.8
[2024-11-13] VITALS (9 sets, daily range): BP systolic 115–137; BP diastolic 58–73; PULSE 69–85; RESP 16–24; TEMP 36.1; O2SAT 90–97; BMI 45.1
--- NOTE | 2024-11-13 12:04 | EKG_ITS ---
[facility] [address], [place] [address] Test Date: 2024-11-13 Pat Name: Verena Turcios Department: [facility] Room: Gender: Female Glass Tube Bender: ALVARO : 1960 Requested By: Order Number: [id number] Reading MD: Tomer Maravilla MD Measurements Intervals [place] Rate: 63 P: 60 OR: 174 QRS: -8 QRSD: 120 T: 50 QT: 454 QTc: 464 Interpretive Statements Normal sinus rhythm Nonspecific intraventricular conduction delay Minimal voltage criteria for LVH, may be normal variant ( [place] product ) Electronically Signed On 11-14-2024 7:43:58 PDT by Tomer Maravilla MD
[2024-11-13 12:17] LABS: Add Manual Diff / Slide Review NO; Basophils Absolute Auto 0 /uL (0-100); Basophils Percent Auto 0.8 % (0-2); Eosinophils Absolute Auto 200 /uL (0-450); Eosinophils Percent Auto 2.5 % (2-4); Hematocrit 34.5 % (36-46); Hemoglobin 11.5 g/dL (12.0-16.0); Lymphocytes Absolute Auto 1500 /uL (1100-4500); Lymphocytes Percent Auto 24.2 % (25-40); Mean Corpuscular HGB Conc 33.3 % (30-36); Mean Corpuscular Hemoglobin 29.9 PG (26-34); Mean Corpuscular Volume 89.7 fL (80-100); Monocytes Absolute Auto 700 /uL (0-900); Monocytes Percent Auto 11.4 % (3-14); Neutrophils Absolute Auto 3800 /uL (1500-7000); Neutrophils Percent Auto 61.1 % (50-75); Platelet Count 256 X10^3/uL (150-400); Red Blood Cell Count 3.84 X10^6/uL (4.0-5.2); Red Cell Distribution Width 17.6 % (11.6-14.8); White Blood Cell Count 6.2 X10^3/uL (4.5-11.0)
[2024-11-13 12:31] LABS: Alanine Aminotransferase 17 IU/L (<35); Albumin 4.2 g/dL (3.5-5.0); Alkaline Phosphatase 108 U/L (38-126); Aspartate Aminotransferase 25 IU/L (14-36); BUN Creatinine Ratio 18.8 (6-22); Bilirubin Total 0.3 mg/dL (0.2-1.3); Blood Urea Nitrogen 15 mg/dL (7-17); Calcium 9.2 mg/dL (8.4-10.2); Carbon Dioxide 27 mmol/L (22-32); Chloride 101 mmol/L (98-107); Estimated Glomerular Filt Rate > 60 mL/min (>60); Globulin 2.1 g/dL (1.7-4.1); Glucose 94 mg/dL (70-99); HEMOLYSIS < 15 (0-50); Lipase 34 U/L (23-300); Potassium 4.4 mmol/L (3.4-5.1); Sodium 135 mmol/L (137-145); Total Protein 6.3 g/dL (6.3-8.2)
--- NOTE | 2024-11-13 16:20 | DI.CT.S_ITS ---
PROCEDURE: CT ABDOMEN PELVIS W CON INDICATIONS: llq pain x 3 weeks recent colonoscopy TECHNIQUE: After the administration of intravenous contrast, axial sections acquired from the lung bases to the pubic symphysis. Coronal and sagittal reformats were performed. For radiation dose reduction, the following was used: automated exposure control, adjustment of mA and/or kV according to patient size. COMPARISON: None. FINDINGS: Image quality: Diagnostic Lower chest: Unremarkable lung bases. Coronary calcifications. Aortic valve calcifications. Right hemidiaphragm eventration Liver: Unremarkable Gallbladder and biliary system: Cmth-fn-ynprjgej biliary ductal dilation including the intrahepatic branches. Cholecystectomy clips. Pancreas: No ductal dilation. Ofzm-fc-qrtprora parenchymal atrophy. Spleen: Prominent at 13-14 cm Adrenals: 1.1 cm left adrenal nodule. This is probably an adenoma, which could be confirmed with adrenal protocol imaging Kidneys: No solid renal mass. No hydronephrosis. Vessels and lymph nodes: The main portal vein is patent. No abdominal aortic aneurysm. No pathologic lymphadenopathy by size criteria. Bowel and peritoneum: Gastric bypass changes. No acute obstruction. Colonic diverticula are seen, without acute diverticular inflammation, with attention in particular to left lower quadrant. There is moderate fecal loading, most prominent in the proximal colon. There are few surgical clips in the lower peritoneum. No drainable abscess or ascites. Body wall: Small fat containing umbilical hernia and mild rectus diastasis Pelvis: Unremarkable bladder. Reproductive organs are unremarkable on limited CT evaluation Bones: No aggressive appearing osseous abnormality. There are degenerative changes. IMPRESSION: No acute inflammatory changes in the left lower quadrant. Diverticula are seen. No acute small bowel obstruction. No drainable abscess or ascites. Uasv-wz-mrxaraxp biliary ductal dilation including intrahepatic branches, probably related to post cholecystectomy state, however correlate with LFTs. Other findings above. Dictated by: Lew Godoy M.D. on 11/13/2024 at 16:54 Approved by: Lew Godoy M.D. on 11/13/2024 at 16:58
[2024-11-13 17:38] LABS: Bacteria Urine Many (>30); Culture Indicated Urine Specimen Cultured; RBC Urine None Seen (0-5/HPF); Renal Epithelial Cells Urine 0-1/HPF (0-1/HPF); Squamous Epithelial Cell Urine 0-1 /HPF (0-5/HPF); Urine Volume 10mL (spun); WBC Urine 5-10/HPF (0-5/HPF)
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
[2024-11-13] MEDS: CEFEPIME 2 GM in SODIUM CHLORIDE 0.9% 100 ML IV (19:16)
[2024-11-13] MEDS: AZITHROMYCIN 500 MG in DEXTROSE 5% IN WATER 250 ML 250 MG IV (19:52)
[2024-11-13] MEDS: ONDANSETRON 4 MG/2 ML INJ IV (20:10)
--- NOTE | 2024-12-13 15:36 | PC.NURSE ---
late entry per RN does of azithroymcin was DC'd at 2100
== END 2024-11-13 21:12 | disposition home or self-care (01) ==
PROVIDERS: Emergency Provider Student in an Organized Health Care Education/Training Program; Family Provider Family Medicine; PCP Family Medicine
DX: R10.32 Left lower quadrant pain (principal)
CPT/HCPCS: 36415; 74177; 80053; 81003; 81015; 83690; 85025; 87077; 87086; 87186; 93005; 93010; 96365; 96367; 96375; 99284; J0692; J2405; Q9967

== ENCOUNTER → 2025-03-23 10:33 | Outpatient (CLI) | payer MEDICAID, SELFPAY ==
[2024-08-22 09:19] VITALS: BMI 45.8
[2025-03-23 11:31] LABS: Add Manual Diff / Slide Review NO; Hematocrit 36.4 % (36-46); Hemoglobin 12.0 g/dL (12.0-16.0); Lymphocytes Absolute Auto 1300 /uL (1100-4500); Mean Corpuscular HGB Conc 32.9 % (30-36); Mean Corpuscular Hemoglobin 30.5 PG (26-34); Mean Corpuscular Volume 92.8 fL (80-100); Platelet Count 329 X10^3/uL (150-400)
[2025-03-23 12:00] LABS: HEMOLYSIS < 15 (0-50); Iron 49 ug/dL (37-170)
[2025-03-23 12:03] LABS: Alanine Aminotransferase 15 IU/L (<35); Albumin 4.6 g/dL (3.5-5.0); Albumin Globulin Ratio 2.2 (1.0-2.8); Alkaline Phosphatase 111 U/L (38-126); Blood Urea Nitrogen 10 mg/dL (7-17); Calcium 9.8 mg/dL (8.4-10.2); Carbon Dioxide 26 mmol/L (22-32); Chloride 100 mmol/L (98-107); Cholesterol 135 mg/dL (140-199); Estimated Glomerular Filt Rate > 60 mL/min (>60); Globulin 2.1 g/dL (1.7-4.1); Glucose 94 mg/dL (70-99); HDL Cholesterol 76 mg/dL (40-60); HEMOLYSIS < 15 (0-50); Potassium 4.9 mmol/L (3.4-5.1); Sodium 133 mmol/L (137-145); Total Protein 6.7 g/dL (6.3-8.2); Triglycerides 59 mg/dL (35-150)
[2025-03-23 12:07] LABS: Microalbumi Creatinin Ratio Ur 9.0 ug/mg CR (<30)
[2025-03-23 12:10] LABS: Percent Iron Saturation 12 % (15-50); Total Iron Binding Capacity 407 ug/dL (265-497); Transferrin 350 mg/dL (206-381)
[2025-03-23 12:31] LABS: TSH w/ Reflex to FT4 0.15 uIU/mL (0.47-4.68)
[2025-03-23 12:41] LABS: Ferritin 13 ng/mL (11-264)
[2025-03-23 12:56] LABS: Free T4, Direct Thyroxine 1.70 ng/dL (0.78-2.19)
== END ==
PROVIDERS: PCP Family Medicine; Referring Provider Family Medicine; Visit Provider Family Medicine
DX: J44.9 Chronic obstructive pulmonary disease, unspecified (principal); E03.9 Hypothyroidism, unspecified; I10 Essential (primary) hypertension; F31.4 Bipolar disorder, current episode depressed, severe, without psychotic features; F41.1 Generalized anxiety disorder; E66.01 Morbid (severe) obesity due to excess calories; Z68.43 Body mass index [BMI] 50.0-59.9, adult; G89.29 Other chronic pain; M54.50 Low back pain, unspecified
CPT/HCPCS: 36415; 80053; 80061; 82043; 82570; 82728; 83540; 83550; 84439; 84443; 85025

== ENCOUNTER 2025-05-22 08:39 | Emergency (ER) | payer MEDICARE, MEDICAID, SELFPAY ==
[2024-08-22 09:19] VITALS: BMI 45.8
--- OUTSIDE RECORDS SUMMARY | 2025-05-22 08:41 | XMS_ITS | Encounter Summary ---
Author Organization [facility] Address [address] [place] [address] Care Team Providers Care Propagation Manager Name Role Phone Pcp, None Selected Primary Care Provider Unavail able Encounter Details Date Type Department Care Team (Late st Contact Info) Description 07/19/2024 Abstract [facility] Orth[facility]ics and [facility] Medicine [address] [phone] Narciso Jones MD [address] [phone] Social History Tobacco Use Types Packs/Day Years Used Date Smoking Tobacco: Former Cigarettes 2 41.2 0 01/08/1978 - 03/05/2019 Smokeless Tobacco: Never Comments:20 plus years ago i quit Alcohol Use Standard Drinks/Week Comments Never 0 (1 standard drink = 0.6 oz pur e alcohol) Comments Unknown Sex and Gender Information Value Date Recorded Sex Assigned at Female 04/01/2023 8:13 AM PDT Legal Sex Female 7:26 PM PDT Gender Identity Female 04/01/2023 8:13 AM PDT Sexual Orientation Asexual 04/01/2023 8: 13 AM PDT documented as of this encounter Plan of Treatment Not on file documented as of this encounter Visit Diagnoses Not on filedocumented in this encounter Care Teams Propagation Manager Relationship Specialty Start Date End Date Pcp, None Selected PCP - General 09/15/24 documented as of this encounter
[2025-05-22 08:44] VITALS: BP 156/99; PULSE 83; RESP 16; TEMP 36.6; O2SAT 97; BMI 41.9
--- NOTE | 2025-05-22 08:46 | DI.US.S_ITS ---
PROCEDURE: US PELVIC COMPLETE INDICATIONS: vaginal bleeding. TECHNIQUE: Real-time scanning was performed of the pelvic organs, with image documentation. Additional endovaginal scanning was necessary due to incomplete visualization of the adnexal and endometrial structures by transabdominal scanning. COMPARISON: [facility], CT, CT ABDOMEN PELVIS W CON, 11/13/2024, 16:23. [facility], US, US PELVIC COMPLETE, 05/19/2019, 9:51. FINDINGS: Uterus: 5.9 x 3.3 x 3.8 cm. Endometrium measures 2 mm. This is within normal limits for age. Intramural 2.2 cm fibroid is present at the anterior uterus. Endocervical small volume fluid and nabothian cysts. Ovaries: Not visualized Other: No pathologic free abdominal or pelvic fluid. IMPRESSION: Endometrium is nonthickened. Anterior intramural 2.2 cm fibroid is again seen. Dictated by: Lew Godoy M.D. on 05/22/2025 at 9:25 Approved by: Lew Godoy M.D. on 05/22/2025 at 9:28
--- NOTE | 2025-05-22 08:49 | ED.PREGNANCY ---
HPI - General Chief complaint: Vaginal Bleeding Stated complaint: heavy Vaginal bleeding last night Time Seen by Provider: 05/22/25 08:46 Source: patient, RN notes reviewed and old records reviewed Mode of arrival: Ambulatory Limitations: no limitations History of Present Illness HPI Narrative: 64-year-old female history of hypothyroid, bipolar, hypertension presents with complaint of vaginal bleeding last night. Patient states she woke up with a large amount of blood. She did not appreciate any clots. She has not had any bleeding since 2009. She states she is having some lower abdominal cramping sensation. She denies fevers or chills. No nausea or vomiting. No diarrhea or constipation. She has not had any black or bloody stools. She has not had any dysuria urgency frequency or hematuria. She states she is quite certain it came from her vaginal region. She denies any trauma or injury to that area. She does not take any anticoagulants. She has had a tubal ligation, x2, cholecystectomy and gastric bypass in the past. Reports allergies to morphine she states it stops her from breathing. Denies tobacco, alcohol or recreational drugs. Dr. Martínez is her primary care physician. Related Data Home Medications ?Medication ?Instructions ?Recorded ?Confirmed aspirin 81 mg tablet,delayed 81 mg PO DAILY 10/05/17 03/28/25 release (Adult Low Dose Aspirin) [employer] Dreamstation Auto BIPAP #1 ea 06/22/18 03/28/25 guaifenesin 600 mg tablet, 600 mg PO Q12H PRN Cough 02/28/19 03/28/25 extended release 12 hr (Mucus Relief ER) bapgwkyo-ldbmpsph-gkkrr acid 240 tab PO 08/24/24 03/28/25 mcg-vit K1 150 mcg-herb 357 tablet (Alive Women's 50 Plus Ultra Multivitamin) Previous Rx's ?Medication ?Instructions ?Recorded inhalational spacing device #1 ea 09/03/23 (BreatheRite MDI Spacer) albuterol sulfate 90 mcg/actuation 1 inh inhalation QID PRN shortness 08/24/24 aerosol inhaler of breath or wheezing #8.5 grams nifedipine 30 mg tablet,extended 30 mg PO DAILY #90 tabs 08/25/24 release ferrous sulfate 325 mg (65 mg 325 mg PO DAILY #60 tabs 09/01/24 iron) tablet,delayed release levothyroxine 150 mcg tablet 150 mcg PO DAILY #90 tabs 09/01/24 gabapentin 300 mg capsule 600 mg (2 x 300 mg) PO BID #360 09/26/24 caps lisinopril 40 mg tablet 40 mg PO DAILY #90 tabs 09/29/24 Disabled Parking Permit #1 ea 10/18/24 aripiprazole 5 mg tablet (Abilify) 5 mg PO DAILY #90 tabs 11/07/24 clonidine HCl 0.1 mg tablet 0.2 mg (2 x 0.1 mg) PO BEDTIME PRN 11/07/24 anxiety #180 tabs methocarbamol 500 mg tablet 1,000 mg (2 x 500 mg) PO Q8H PRN 11/22/24 muscle pain #120 tabs sulfamethoxazole 800 1 tab PO Q12H #20 tabs 11/22/24 mg-trimethoprim 160 mg tablet (Bactrim DS) lamotrigine 200 mg tablet 400 mg (2 x 200 mg) PO BID #360 02/02/25 (Lamictal) tabs venlafaxine 75 mg capsule,extended 225 mg (3 x 75 mg) PO DAILY #270 02/02/25 release 24 hr caps semaglutide 2 mg/dose (8 mg/3 mL) 2 mg (0.75 mL) SUBCUT QWEEK #3 mL 03/28/25 subcutaneous pen injector tramadol 50 mg tablet 50 mg PO BID PRN pain #60 tabs 04/25/25 sumatriptan succinate 50 mg tablet See Rx Instructions PO .COMPLEX 05/02/25 PRN Migraine Headache #9 tabs modafinil 200 mg tablet 400 mg (2 x 200 mg) PO QAM #180 05/18/25 tabs medroxyprogesterone 10 mg tablet 10 mg PO BID 10 days #20 tabs 05/22/25 Allergies Allergy/AdvReac Type Severity Reaction Status Date / Time morphine Allergy Severe STOP Verified 05/22/25 08:48 BREATHING adhesive AdvReac Severe LOCAL Verified 05/22/25 08:48 BLISTER, PLASTIC TAPE O.K., NO SILK TAPE onion AdvReac Intermediate nausea, Verified 05/22/25 08:48 hives Review of Systems Review of Systems ROS Unobtainable: All systems reviewed & are unremarkable except as noted in HPI and below Exam Narrative Exam Narrative: GENERAL: Alert and oriented x three, obese female in mild distress HEENT: Head normocephalic, atraumatic, EOMI, pupils reactive, face symmetric, moist mucous membranes NECK: Supple, full range of motion CARDIOVASCULAR: Regular rate and rhythm without murmurs, rubs or gallops. RESPIRATORY: Breath sounds equal bilaterally, no wheezes rales or rhonchi. ABDOMEN: Soft, nontender. Normoactive bowel sounds all 4 quadrants. No guarding or rebound, rigidity, no mass : No CVA tenderness. Female: external vaginal exam is normal, no vaginal bleeding, no discharge, no cervical motion tenderness, difficult to visualize patient's cervix but I do note what appears to be 2 small areas of ulceration that are bright red that may has been a potential source of bleeding, I do not appreciate any large masses, no adnexal tenderness/mass. Bimanual exam is normal, no enlarged or tender uterus. Non-gravid. Rectal: non-tender, patient has 2 small hemorrhoids there does not appear to be any signs of active bleeding. EXTREMITIES: Normal range of motion, no clubbing or edema. Neurovascularly intact NEUROLOGICAL: Cranial nerves II through XII grossly intact. Moving all extremities SKIN: Warm, dry, no petechiae, no rashes or lesions. Initial Vital Signs Initial Vital Signs: Vital Signs Temperature 97.8 F 05/22/25 08:44 Pulse Rate 83 05/22/25 08:44 Respiratory Rate 16 05/22/25 08:44 Blood Pressure 156/99 H 05/22/25 08:44 Pulse Oximetry 97 05/22/25 08:44 Oxygen Delivery Method Room Air 05/22/25 08:44 Course Orders Ordered: ED Orders 05/22/25 08:46 US pelvic complete Stat 05/22/25 09:36 CBC Auto Diff [Complete Blood Count AUTO DIFF] Stat CMP [Comprehensive Metabolic Panel] Stat Lipase Stat Vital Signs Vital signs: Vital Signs - 8 hr 05/22/25 08:44 Temperature 97.8 F Pulse Rate 83 Respiratory Rate 16 Blood Pressure 156/99 H Pulse Oximetry 97 Oxygen Delivery Method Room Air MDM - OB/Uterine Contractions Lab Data 05/22/25 09:36 05/22/25 09:36 Labs: Lab Results 05/22/25 Range/Units 09:36 WBC 7.3 (4.5-11.0) X10^3/uL RBC 3.72 L (4.0-5.2) X10^6/uL Hgb 11.4 L (12.0-16.0) g/dL Hct 33.8 L (36-46) % MCV 91.0 (80-100) fL MCH 30.5 (26-34) PG MCHC 33.5 (30-36) % RDW 14.6 (11.6-14.8) % Plt Count 295 (150-400) X10^3/uL Neut % (Auto) 69.4 (50-75) % Lymph % (Auto) 19.0 L (25-40) % Vernon % (Auto) 8.8 (3-14) % Eos % (Auto) 1.8 L (2-4) % Baso % (Auto) 1.0 (0-2) % Neut # (Auto) 5100 (1892-1640) /uL Lymph # (Auto) 1400 (9839-4342) /uL Vernon # (Auto) 600 (0-900) /uL Eos # (Auto) 100 (0-450) /uL Baso # (Auto) 100 (0-100) /uL Sodium 134 L (137-145) mmol/L Potassium 4.5 (3.4-5.1) mmol/L Chloride 104 (98-107) mmol/L Carbon Dioxide 25 (22-32) mmol/L BUN 12 (7-17) mg/dL Creatinine 0.71 (0.52-1.04) mg/dL Estimated GFR > 60 (>60) mL/min BUN/Creatinine Ratio 16.9 (6-22) Glucose 97 (70-99) mg/dL Calcium 9.2 (8.4-10.2) mg/dL Total Bilirubin 0.4 (0.2-1.3) mg/dL AST 32 (14-36) IU/L ALT 20 (<35) IU/L Alkaline Phosphatase 106 (38-126) U/L Total Protein 6.2 L (6.3-8.2) g/dL Albumin 4.1 (3.5-5.0) g/dL Globulin 2.1 (1.7-4.1) g/dL Albumin/Globulin Ratio 2.0 (1.0-2.8) Lipase 30 (23-300) U/L MDM Narrative Medical decision making narrative: Labs, hemoglobin of 11.4 looks fairly consistent with priors white count 7.3 platelets are 295, patient is aware of her hemoglobin. Sodium is 134 electrolytes BUN and creatinine are otherwise appropriate, LFTs are normal. Pelvic US, endometrium is not thickened, anterior intramural 2.2 cm fibroid again seen. Ovaries not visualized. No pathologic free abdominal or pelvic fluid. Spoke with Dr. Valencia, gynecology to set up followup. She will send a prescription for progesterone for the patient plan to have the patient follow up in the next week. Discussed with the patient suspect she had vaginal bleeding based on her history and exam we will have patient follow up with Gynecology. Patient expresses her understanding discussed return precautions. Updated patient she feels comfortable with this plan she would like to start progesterone discussed she should expect to find a prescription later today from Dr. Valencia. Discussed return precautions Discharge Plan Departure Patient Disposition: Home Clinical Impression: Abnormal vaginal bleeding Instructions: DI for Vaginal Bleeding Activity Restrictions/Additional Instructions: You do need to follow up with Gynecology mucous of the vaginal bleeding this is atypical and anyone who has not had menses over a long period of time. Your workup did show a fibroid the could be potentially a source of your bleeding but you need to be evaluated for other causes as well. Call the number included below for follow up. Dr. Valencia sent a prescription for Provera (progesterone) to [facility]. If you would like to you can start it today or if you develop any recurrent bleeding you can start the prescription. Please return if you have new abdominal back or flank pain, fevers, persistent vomiting, lightheadedness or passing out, bleeding going through more than a pad or tampon an hour or other new or concerning changes. Prescriptions: No Action guaifenesin [Mucus Relief ER] 600 mg tablet extended release 12hr 600 mg PO Q12H PRN (Reason: Cough) lamotrigine [Lamictal] 200 mg tablet 400 mg PO BID MDD 800mg Qty: 360 3RF Rx Instructions: Take 2 tabs twice daily venlafaxine 75 mg capsule,extended release 24hr 225 mg PO DAILY Qty: 270 3RF gabapentin 300 mg capsule 600 mg PO BID Qty: 360 3RF aripiprazole [Abilify] 5 mg tablet 5 mg PO DAILY Qty: 90 3RF clonidine HCl 0.1 mg tablet 0.2 mg PO BEDTIME PRN (Reason: anxiety) Qty: 180 3RF Alive Women's 50 Plus Ultra MV 240-150 mcg tablet PO nifedipine 30 mg tablet extended release 30 mg PO DAILY Qty: 90 1RF Rx Instructions: raynaud's and BP lisinopril 40 mg tablet 40 mg PO DAILY Qty: 90 3RF (DME) Disabled Parking Permit See Rx Instructions .ROUTE .MEDSUPPLY Qty: 1 0RF Rx Instructions: I find this patient to be medically disabled and qualified for Disabled Parking as indicated and signed on the accompanying Disabled Parking Application for Individuals. tramadol 50 mg tablet 50 mg PO BID PRN (Reason: pain) Qty: 60 1RF sumatriptan succinate 50 mg tablet See Rx Instructions PO .COMPLEX PRN (Reason: Migraine Headache) Qty: 9 2RF Rx Instructions: TAKE 1 TABLET BY MOUTH AT ONSET OF HEADACHE. IF NO RELIEF, MAY REPEAT 1 TABLET AFTER AT LEAST 2 HOURS. MAXIMUM OF 2 TABLETS PER 24 HOURS modafinil 200 mg tablet 400 mg PO QAM Qty: 180 1RF medroxyprogesterone 10 mg tablet 10 mg PO BID 10 Days Qty: 20 0RF aspirin [Adult Low Dose Aspirin] 81 mg tablet,delayed release (DR/EC) 81 mg PO DAILY (DME) BreatheRite MDI Spacer Spacer See Rx Instructions .Route Qty: 1 0RF Rx Instructions: As directed ferrous sulfate 325 mg (65 mg iron) tablet,delayed release (DR/EC) 325 mg PO DAILY Qty: 60 1RF levothyroxine 150 mcg tablet 150 mcg PO DAILY Qty: 90 3RF semaglutide 2 mg/dose (8 mg/3 mL) pen injector 2 mg SUBCUT QWEEK Qty: 3 2RF Rx Instructions: Take subcu weekly methocarbamol 500 mg tablet 1,000 mg PO Q8H PRN (Reason: muscle pain) Qty: 120 2RF sulfamethoxazole-trimethoprim [Bactrim DS] 800-160 mg tablet 1 tab PO Q12H Qty: 20 0RF albuterol sulfate 90 mcg/actuation HFA aerosol inhaler 1 inh inhalation QID PRN (Reason: shortness of breath or wheezing) Qty: 8.5 0RF Rx Instructions: Plus SPACER (DME) Respironics Dreamstation Auto BIPAP Qty: 1 Dose Instruction: As directed Patient Comments: Pressure: 10-25 cmH2O DME: [employer] Rx Instructions: As directed Referrals: Vladimir Martínez MD [Primary Care Provider, Family Practice] Arleth Valencia DO [Physician, FAMILY SERVICE COUNSELOR] Stand Alone Forms: Patient Portal/API
[2025-05-22 09:56] LABS: Add Manual Diff / Slide Review NO; Hematocrit 33.8 % (36-46); Hemoglobin 11.4 g/dL (12.0-16.0); Lymphocytes Absolute Auto 1400 /uL (1100-4500); Mean Corpuscular HGB Conc 33.5 % (30-36); Mean Corpuscular Hemoglobin 30.5 PG (26-34); Mean Corpuscular Volume 91.0 fL (80-100); Platelet Count 295 X10^3/uL (150-400)
[2025-05-22 10:02] LABS: Blood Urea Nitrogen 12 mg/dL (7-17)
[2025-05-22 10:13] LABS: Alanine Aminotransferase 20 IU/L (<35); Albumin 4.1 g/dL (3.5-5.0); Albumin Globulin Ratio 2.0 (1.0-2.8); Alkaline Phosphatase 106 U/L (38-126); Calcium 9.2 mg/dL (8.4-10.2); Carbon Dioxide 25 mmol/L (22-32); Chloride 104 mmol/L (98-107); Estimated Glomerular Filt Rate > 60 mL/min (>60); Globulin 2.1 g/dL (1.7-4.1); Glucose 97 mg/dL (70-99); HEMOLYSIS 48 (0-50); Lipase 30 U/L (23-300); Potassium 4.5 mmol/L (3.4-5.1); Sodium 134 mmol/L (137-145); Total Protein 6.2 g/dL (6.3-8.2)
== END 2025-05-22 10:55 | disposition home or self-care (01) ==
PROVIDERS: Emergency Provider Emergency Medicine; PCP Family Medicine
DX: N92.0 Excessive and frequent menstruation with regular cycle (principal); R10.30 Lower abdominal pain, unspecified
CPT/HCPCS: 76856; 80053; 83690; 85025; 99281; 99284